=== PATIENT | male | born 1960 | race Two or more races ===

== ENCOUNTER 2016-09-13 08:11 | Inpatient (IN) | payer OTHER ==
[2016-09-13] VITALS (10 sets, daily range): BP systolic 101–129; BP diastolic 52–63
[~2016-09-13] VITALS: Ht 182.9 cm; Wt 76.7 kg
[2016-09-13 08:46] LABS: BASO % 0 % (0-3); EOS % 0 % (0-3); HEMATOCRIT 31.9 % (39.0-53.0); HEMOGLOBIN 10.7 g/dL (13.0-17.5); LYMPH # 0.3 x10^3/uL (1.0-4.8); LYMPH % 3 % (24-48); MEAN CORPUSCULAR HEMOGLOBIN 30 pg (25-35); MEAN CORPUSCULAR HGB CONC 34 g/dL (31-37); MEAN CORPUSCULAR VOLUME 88 fL (79-100); MONO % 2 % (0-9); NEUT % 95 % (31-73); PLATELET COUNT 150 x10^3/uL (140-400); RED BLOOD COUNT 3.63 x10^6/uL (4.30-5.70)
--- NOTE | 2016-09-13 08:52 | RAD ---
Indication fever nausea vomiting. Protocol study. A single view of the chest was obtained. No prior imaging of the chest is available. Heart size is at the upper limits of normal. There is no congestive heart failure. There is no focal infiltrate. Significant pleural fluid is not seen and there is no pneumothorax. Right-sided dialysis catheter is noted. IMPRESSION: No acute or focal process in the chest
[2016-09-13] MEDS ORDERED: PIP/TAZO PER PHARMACY MC PRN (09:00)
[2016-09-13] MEDS ORDERED: ACETAMINOPHEN 325 MG TABLET. PO ONE (09:00)
[2016-09-13] MEDS ORDERED: IV NORMAL SALINE 500ML BAG 500 ML IV ONE ×2 (09:00→10:00)
[2016-09-13 09:02] LABS: CALCIUM 8.1 mg/dL (8.5-10.1); CREATININE 8.6 mg/dL (0.7-1.3); GFR 6.4; POTASSIUM 5.1 mmol/L (3.5-5.1)
[2016-09-13] MEDS ORDERED: ONDANSETRON PF 4 MG/2 ML VIAL. ONE (09:03)
[2016-09-13 09:09] LABS: ALBUMIN 3.5 g/dL (3.4-5.0); DIRECT BILIRUBIN 0.2 mg/dL (0.0-0.2); TOTAL BILIRUBIN 0.6 mg/dL (0.2-1.0); TOTAL PROTEIN 6.7 g/dL (6.4-8.2)
[2016-09-13] MEDS ORDERED: ONDANSETRON PF 4 MG/2 ML VIAL. IV ONE (09:15)
--- NOTE | 2016-09-13 09:20 | PHYS DOC ---
Past Medical History Past Medical History: Hypertension, Renal Failure Past Surgical History: Other Additional Past Surgical Histo: Dialysis cath right chest, lt arm fistula Alcohol Use: None Drug Use: None Adult General Chief Complaint Chief Complaint: FEVER HPI HPI 56-year-old male presenting to the emergency department today after getting dialysis approximately longterm through when the dialysis nurses noted the patient was trembling. They called EMS to have the patient evaluated. The patient reports feeling nauseated and having a few episodes of vomiting over the past couple days. He denies abdominal pain or diarrhea. He also reports a green drainage from his port. He denies any new rashes. Onset 24 hours. Location generalized. Duration constant. No alleviating or exacerbating factors. Review of systems was negative for cough shortness of breath abdominal pain diarrhea. All other review of systems is negative unless otherwise noted in history of present illness. ED course: 56-year-old end-stage renal disease patient presenting to the emergency department with a fever. Patient was febrile and tachycardic and tachypneic in our emergency department concern for possible bacteremia. Patient reports green drainage from his right port which could be the source of infection. On inspection and evaluation of the port , the port has no drainage currently and there is no erythema around the site. Clinically port/central venous line does not appear infected. Other pertinent physical exam findings lungs are clear to auscultation. Abdomen is soft and nontender. Otherwise unremarkable exam. Noted fistula in the left upper arm.. IV established. IV fluids administered along with acetaminophen and broad-spectrum antibiotics after blood cultures obtained. Blood work sent. Lactic acid elevated. Reevaluation of the patient's hemodynamic volume status after 500 mL bolus performed. I reinitiated another 500 mL bolus. Judicious fluid administration used due to esrd. The patient was then admitted to our hospital for further evaluation workup and care. Review of Systems Review of Systems SEE ABOVE. Current Medications Current Medications Current Medications Medications (Trade) Dose Ordered Sig/Sajan Start Time Stop Time Status Last Admin Dose Admin Acetaminophen (Tylenol) 650 mg 1X ONCE 09/13/16 09:00 09/13/16 09:04 DC 09/13/16 09:06 650 MG Ondansetron HCl (Zofran) 4 mg STK-MED ONCE 09/13/16 09:03 09/13/16 09:04 DC Piperacillin Sod/ Tazobactam Sod (Zosyn Per Pharmacy) 1 each PRN DAILY PRN 09/13/16 09:00 Piperacillin Sod/ Tazobactam Sod 2.25 gm/Sodium Chloride 50 ml @ 100 mls/hr 1X ONCE 09/13/16 09:45 09/13/16 10:14 09/13/16 09:24 100 MLS/HR Sodium Chloride 500 ml @ 500 mls/hr 1X ONCE 09/13/16 09:00 09/13/16 09:59 09/13/16 09:06 500 MLS/HR Vancomycin HCl (Vanco Per Pharmacy) 1 each PRN DAILY PRN 09/13/16 09:00 Vancomycin HCl 2 gm/Sodium Chloride 500 ml @ 250 mls/hr 1X ONCE 09/13/16 10:15 09/13/16 12:14 Allergies Allergies Allergies Coded Allergies Type Severity Reaction Last Updated Verified No Known Drug Allergies 09/13/16 No Physical Exam Physical Exam Constitutional: Well developed, well nourished, no acute distress, non-toxic appearance. [] HENT: Normocephalic, atraumatic, bilateral external ears normal, oropharynx moist, no oral exudates, nose normal. [] Eyes: PERRLA, EOMI, conjunctiva normal, no discharge. [] Neck: Normal range of motion, no tenderness, supple, no stridor. [] Cardiovascular:Heart rate regular rhythm, no murmur [] Lungs & Thorax: Bilateral breath sounds clear to auscultation [] Abdomen: Bowel sounds normal, soft, no tenderness, no masses, no pulsatile masses. [] Skin: Warm, dry, no erythema, no rash. [] see above Back: No tenderness, no CVA tenderness. [] Extremities: No tenderness, no cyanosis, no clubbing, ROM intact, no edema. [] see above Neurologic: Alert and oriented X 3, normal motor function, normal sensory function, no focal deficits noted. [] Psychologic: Affect normal, judgement normal, mood normal. [] Current Patient Data Vital Signs Vital Signs Date Time Temp Pulse Resp B/P (MAP) Pulse Ox O2 Delivery O2 Flow Rate FiO2 09/13/16 08:43 106 20 134/67 (89) 100 09/13/16 08:19 103.3 Room Air 103.3 Lab Values Laboratory Tests Test 09/13/16 08:35 White Blood Count 11.0 x10^3/uL (4.0-11.0) Red Blood Count 3.63 x10^6/uL (4.30-5.70) L Hemoglobin 10.7 g/dL (13.0-17.5) L Hematocrit 31.9 % (39.0-53.0) L Mean Corpuscular Volume 88 fL (79-100) Mean Corpuscular Hemoglobin 30 pg (25-35) Mean Corpuscular Hemoglobin Concent 34 g/dL (31-37) Red Cell Distribution Width 17.0 % (11.5-14.5) H Platelet Count 150 x10^3/uL (140-400) Neutrophils (%) (Auto) 95 % (31-73) H Lymphocytes (%) (Auto) 3 % (24-48) L Monocytes (%) (Auto) 2 % (0-9) Eosinophils (%) (Auto) 0 % (0-3) Basophils (%) (Auto) 0 % (0-3) Neutrophils # (Auto) 10.4 x10^3uL (1.8-7.7) H Lymphocytes # (Auto) 0.3 x10^3/uL (1.0-4.8) L Monocytes # (Auto) 0.2 x10^3/uL (0.0-1.1) Eosinophils # (Auto) 0.0 x10^3/uL (0.0-0.7) Basophils # (Auto) 0.0 x10^3/uL (0.0-0.2) Platelet Estimate Pending Sodium Level 137 mmol/L (136-145) Potassium Level 5.1 mmol/L (3.5-5.1) Chloride Level 102 mmol/L (98-107) Carbon Dioxide Level 19 mmol/L (21-32) L Anion Gap 16 (6-14) H Blood Urea Nitrogen 64 mg/dL (8-26) H Creatinine 8.6 mg/dL (0.7-1.3) H Estimated GFR (Cockcroft-Gault) 6.4 Glucose Level 150 mg/dL (70-99) H Lactic Acid Level 4.3 mmol/L (0.4-2.0) *H Calcium Level 8.1 mg/dL (8.5-10.1) L Total Bilirubin 0.6 mg/dL (0.2-1.0) Direct Bilirubin 0.2 mg/dL (0.0-0.2) Aspartate Amino Transferase (AST) 16 U/L (15-37) Alanine Aminotransferase (ALT) 14 U/L (16-63) L Alkaline Phosphatase 48 U/L (46-116) Troponin I Quantitative 0.043 ng/mL (0.000-0.055) HQ-Zsi-D-Type Natriuretic Peptide > 49366 pg/mL (0-124) H Total Protein 6.7 g/dL (6.4-8.2) Albumin 3.5 g/dL (3.4-5.0) Lipase 79 U/L (73-393) Laboratory Tests 09/13/16 08:35 Laboratory Tests 09/13/16 08:35 EKG EKG [] Radiology/Procedures Radiology/Procedures [] Course & Med Decision Making Course & Med Decision Making Pertinent Labs and Imaging studies reviewed. (See chart for details) [] Dragon Disclaimer Dragon Disclaimer This electronic medical record was generated, in whole or in part, using a voice recognition dictation system. Departure Departure Impression: Primary Impression: Fever Additional Impressions: Tachycardia End stage renal disease Disposition: ADMITTED INPATIENT Admitting Physician: Tian Tejada Condition: STABLE Critical Care Time Critical care time was [35] minutes exclusive of procedures. Time was spent evaluating patient, ordering the administration of IV fluids and antibiotics, reevaluating the patient, discussing with the admitting provider and documenting. Problem Qualifiers XAVI LI MD Sep 13, 2016 09:20
[2016-09-13] MEDS ORDERED: PIPERACILLIN/TAZOBACTAM 2.25 GM in IV NORMAL SALINE 50ML 50 ML IV ONE (09:45)
[2016-09-13] MEDS ORDERED: ONDANSETRON PF 4 MG/2 ML VIAL. IV PRN ×2 (10:00→14:00)
[2016-09-13] MEDS ORDERED: MORPHINE SULFATE 2 MG/ML DISP.SYRIN. IV PRN ×2 (10:00→14:00)
--- NOTE | 2016-09-13 10:07 | EKG ---
[facility] [address] [place] [address] Test Date: 2016-09-13 Test Time: 09:01:03 Pat Name: BRIAN LUCERO Department: Room: Gender: M Buckle Inspector: : 1960 Requested By: XAVI LI Order Number: [id number] Reading MD: Measurements Intervals [place] Rate: 109 P: 39 TX: 116 QRS: 28 QRSD: 88 T: 22 QT: 296 QTc: 400 Interpretive Statements SINUS TACHYCARDIA LEFT ATRIAL ABNORMALITY QRS(T) CONTOUR ABNORMALITY CANNOT RULE OUT ANTEROSEPTAL MYOCARDIAL DAMAGE RI6.01 Unconfirmed report No previous ECG available for comparison
[2016-09-13] MEDS ORDERED: VANCOMYCIN 2 GM in IV NORMAL SALINE 500ML BAG 500 ML IV ONE (10:15)
[2016-09-13 10:18] LABS: PLT ESTIMATE ADEQUATE (ADEQUATE)
--- NOTE | 2016-09-13 10:21 | ACF ---
Admission Forms Criteria I am unable to edit this form. This patient was placed as observation status. This is the only avenue in our electronic medical record for me to document this. All of the above information is not my professional medical opinion. Admission Criteria Met?: Pending IVETTE KO Sep 13, 2016 10:21 XAVI LI MD Sep 20, 2016 03:48
[2016-09-13] MEDS ORDERED: HYDR-2869 PO (11:21)
[2016-09-13] MEDS ORDERED: AMLO10TA2 PO (11:21)
[2016-09-13] MEDS: VANCOMYCIN PER PHARMACY MC PRN (12:44)
[2016-09-13] MEDS ORDERED: IV NORMAL SALINE 1000ML BAG 1,000 ML IV ONE (12:45)
--- NOTE | 2016-09-13 13:58 | PDOC1 ---
History and Physical Date of Admission Date of Admission 09/13/16 Identification/Chief Complaint Chief Complaint fever, chills Problems: Source Source: Chart review, Patient History of Present Illness History of Present Illness HPI HPI 56-year-old male presenting to the emergency department today after getting dialysis approximately nursing home through when the dialysis nurses noted the patient had chills. Pt said he started to have chills, fever, since last night, T 104. He also N/V yesterday with 1 time diarrhea. He noticed his right upper chest HD cath had some pus 2 days ago, told HD staff , nothing was done. otherwise he feels ok, no cough, sob, chest pain, abd pain . He still has 4 times urination daily with HD TTS, about 400cc daily. in ER, T 103, [place] 4. has left arm AVF done 4 WEEKS ago, HD current through AVF, the HD cath was supposed to move soon. i noticed his HD cath was not fixed to chest wall at all , easily to move in or out. with mild yellow discharge on the dressing. Past Medical History Past Medical History Hypertension, Renal Failure Past Surgical History Past Surgical History HD cath, AVF Family History Family History: Hypertension Social History Smoke: No ALCOHOL: none Drugs: None Current Problem List Problem List Problems Medical Problems: (1) End stage renal disease Status: Acute (2) Fever Status: Acute (3) Tachycardia Status: Acute Current Medications Current Medications Current Medications Medications (Trade) Dose Ordered Sig/Sajan Start Time Stop Time Status Last Admin Dose Admin Acetaminophen (Tylenol) 650 mg 1X ONCE 09/13/16 09:00 09/13/16 09:04 DC 09/13/16 09:06 650 MG Morphine Sulfate 2 mg PRN Q2HR PRN 09/13/16 10:00 09/14/16 09:59 Ondansetron HCl (Zofran) 4 mg PRN Q8HRS PRN 09/13/16 10:00 09/14/16 09:59 Piperacillin Sod/ Tazobactam Sod (Zosyn Per Pharmacy) 1 each PRN DAILY PRN 09/13/16 09:00 Piperacillin Sod/ Tazobactam Sod 2.25 gm/Sodium Chloride 50 ml @ 100 mls/hr Q8HRS 09/13/16 20:00 Sodium Chloride 1,000 ml @ 1,000 mls/hr 1X ONCE 09/13/16 12:45 09/13/16 13:44 DC 09/13/16 12:45 1,000 MLS/HR Vancomycin HCl (Vanco Per Pharmacy) 1 each PRN DAILY PRN 09/13/16 09:00 09/13/16 12:44 1 EACH Vancomycin HCl 500 mg/Sodium Chloride 100 ml @ 100 mls/hr QTUTHSA 09/15/16 16:00 Vancomycin HCl 2 gm/Sodium Chloride 500 ml @ 250 mls/hr 1X ONCE 09/13/16 10:15 09/13/16 12:14 DC 09/13/16 09:58 250 MLS/HR Allergies Allergies Allergies Coded Allergies Type Severity Reaction Last Updated Verified No Known Drug Allergies 09/13/16 No ROS Review of System CONSTITUTIONAL: No fever or chills EYES: No recent changes SKIN: No rash or itching CARDIOVASCULAR: No chest pain, syncope, palpitations, or edema RESPIRATORY: No SOB or cough GASTROINTESTINAL: No nausea, vomiting or abdominal pain NEUROLOGICAL: No headaches or weakness ENDOCRINE: No cold or heat intolerance GENITOURINARY: No urgency or frequency of urination MUSCULOSKELETAL: No back pain or joint pain LYMPHATICS: No enlarged lymph nodes PSYCHIATRIC: No anxiety or depression Physical Exam Physical Exam HD cath was not fixed to chest wall at all, easily to move in or out. with mild yellow discharge on the dressing. GEN.: No apparent distress. Alert and oriented. HEENT: Head is normocephalic, atraumatic NECK: Supple. LUNGS: Clear to auscultation. HEART: RRR, S1, S2 present. Peripheral pulses intact ABDOMEN: Soft, nontender. Positive bowel sounds. EXTREMITIES: Without any cyanosis. NEUROLOGIC: Normal speech, normal tone PSYCHIATRIC: Normal affect, normal mood. SKIN: No ulcerations Vitals Vitals Vital Signs Date Time Temp Pulse Resp B/P (MAP) Pulse Ox O2 Delivery O2 Flow Rate FiO2 09/13/16 13:00 87 14 101/60 (74) 96 Room Air 09/13/16 12:00 100.4 100.4 Labs Labs Laboratory Tests Test 09/13/16 08:35 09/13/16 11:40 White Blood Count 11.0 x10^3/uL (4.0-11.0) Red Blood Count 3.63 x10^6/uL (4.30-5.70) Hemoglobin 10.7 g/dL (13.0-17.5) Hematocrit 31.9 % (39.0-53.0) Mean Corpuscular Volume 88 fL (79-100) Mean Corpuscular Hemoglobin 30 pg (25-35) Mean Corpuscular Hemoglobin Concent 34 g/dL (31-37) Red Cell Distribution Width 17.0 % (11.5-14.5) Platelet Count 150 x10^3/uL (140-400) Neutrophils (%) (Auto) 95 % (31-73) Lymphocytes (%) (Auto) 3 % (24-48) Monocytes (%) (Auto) 2 % (0-9) Eosinophils (%) (Auto) 0 % (0-3) Basophils (%) (Auto) 0 % (0-3) Neutrophils # (Auto) 10.4 x10^3uL (1.8-7.7) Lymphocytes # (Auto) 0.3 x10^3/uL (1.0-4.8) Monocytes # (Auto) 0.2 x10^3/uL (0.0-1.1) Eosinophils # (Auto) 0.0 x10^3/uL (0.0-0.7) Basophils # (Auto) 0.0 x10^3/uL (0.0-0.2) Segmented Neutrophils % 75 % (35-66) Band Neutrophils % 21 % (0-9) Lymphocytes % 4 % (24-48) Platelet Estimate Adequate (ADEQUATE) Sodium Level 137 mmol/L (136-145) Potassium Level 5.1 mmol/L (3.5-5.1) Chloride Level 102 mmol/L (98-107) Carbon Dioxide Level 19 mmol/L (21-32) Anion Gap 16 (6-14) Blood Urea Nitrogen 64 mg/dL (8-26) Creatinine 8.6 mg/dL (0.7-1.3) Estimated GFR (Cockcroft-Gault) 6.4 Glucose Level 150 mg/dL (70-99) Lactic Acid Level 4.3 mmol/L (0.4-2.0) 0.7 mmol/L (0.4-2.0) Calcium Level 8.1 mg/dL (8.5-10.1) Total Bilirubin 0.6 mg/dL (0.2-1.0) Direct Bilirubin 0.2 mg/dL (0.0-0.2) Aspartate Amino Transf (AST/SGOT) 16 U/L (15-37) Alanine Aminotransferase (ALT/SGPT) 14 U/L (16-63) Alkaline Phosphatase 48 U/L (46-116) Troponin I Quantitative 0.043 ng/mL (0.000-0.055) UX-Quc-B-Type Natriuretic Peptide > 98934 pg/mL (0-124) Total Protein 6.7 g/dL (6.4-8.2) Albumin 3.5 g/dL (3.4-5.0) Lipase 79 U/L (73-393) Laboratory Tests Test 09/13/16 08:35 09/13/16 11:40 White Blood Count 11.0 x10^3/uL (4.0-11.0) Red Blood Count 3.63 x10^6/uL (4.30-5.70) Hemoglobin 10.7 g/dL (13.0-17.5) Hematocrit 31.9 % (39.0-53.0) Mean Corpuscular Volume 88 fL (79-100) Mean Corpuscular Hemoglobin 30 pg (25-35) Mean Corpuscular Hemoglobin Concent 34 g/dL (31-37) Red Cell Distribution Width 17.0 % (11.5-14.5) Platelet Count 150 x10^3/uL (140-400) Neutrophils (%) (Auto) 95 % (31-73) Lymphocytes (%) (Auto) 3 % (24-48) Monocytes (%) (Auto) 2 % (0-9) Eosinophils (%) (Auto) 0 % (0-3) Basophils (%) (Auto) 0 % (0-3) Neutrophils # (Auto) 10.4 x10^3uL (1.8-7.7) Lymphocytes # (Auto) 0.3 x10^3/uL (1.0-4.8) Monocytes # (Auto) 0.2 x10^3/uL (0.0-1.1) Eosinophils # (Auto) 0.0 x10^3/uL (0.0-0.7) Basophils # (Auto) 0.0 x10^3/uL (0.0-0.2) Segmented Neutrophils % 75 % (35-66) Band Neutrophils % 21 % (0-9) Lymphocytes % 4 % (24-48) Platelet Estimate Adequate (ADEQUATE) Sodium Level 137 mmol/L (136-145) Potassium Level 5.1 mmol/L (3.5-5.1) Chloride Level 102 mmol/L (98-107) Carbon Dioxide Level 19 mmol/L (21-32) Anion Gap 16 (6-14) Blood Urea Nitrogen 64 mg/dL (8-26) Creatinine 8.6 mg/dL (0.7-1.3) Estimated GFR (Cockcroft-Gault) 6.4 Glucose Level 150 mg/dL (70-99) Lactic Acid Level 4.3 mmol/L (0.4-2.0) 0.7 mmol/L (0.4-2.0) Calcium Level 8.1 mg/dL (8.5-10.1) Total Bilirubin 0.6 mg/dL (0.2-1.0) Direct Bilirubin 0.2 mg/dL (0.0-0.2) Aspartate Amino Transf (AST/SGOT) 16 U/L (15-37) Alanine Aminotransferase (ALT/SGPT) 14 U/L (16-63) Alkaline Phosphatase 48 U/L (46-116) Troponin I Quantitative 0.043 ng/mL (0.000-0.055) KU-Rmz-K-Type Natriuretic Peptide > 32611 pg/mL (0-124) Total Protein 6.7 g/dL (6.4-8.2) Albumin 3.5 g/dL (3.4-5.0) Lipase 79 U/L (73-393) VTE Prophylaxis Ordered VTE Prophylaxis Devices: Yes VTE Pharmacological Prophylaxi: Yes Assessment/Plan Assessment/Plan 1. sepsis, with likely bacteremia or infection from the HD cath 2. ESRD on HD TTS 3. htn 4. bandemia 5. metabolic acidosis 6. lactate acidosis 7. anemia with 2 plan; renal , ID consult if renal ok, should remove the chesT HD cath cont flores meléndez for now, fu bcx need HD, not sure today or not tho hold HTN meds get 1.5L iv BOLUS labs tmr ok to transfer out of ICU dvt ppx DILLON FIELDS MD Sep 13, 2016 13:58
[2016-09-13] MEDS ORDERED: hydrALAZINE 20 MG/ML VIAL. IVP PRN (14:00)
[2016-09-13] MEDS ORDERED: DOCUSATE SODIUM 100 MG CAPSULE. PO PRN (14:00)
--- NOTE | 2016-09-13 14:30 | PDOC2 ---
Consult: RENAL CONSULT/ NAN Date of consult: 09/13/16 Identification/Chief Complaint ESRD Source Source: Chart review, Patient History of Present Illness History of Present Illness HPI HPI 56-year-old male presenting to the emergency department today after getting dialysis approximately senior living through when the dialysis nurses noted the patient had chills. Pt said he started to have chills, fever, since last night, T 104. He also N/V yesterday with 1 time diarrhea. He noticed his right upper chest HD cath had some pus 2 days ago, told HD staff , nothing was done. otherwise he feels ok, no cough, sob, chest pain, abd pain . He still has 4 times urination daily with HD TTS, about 400cc daily. in ER, T 103, [place] 4. Had left arm AVF done 4 WEEKS ago, HD current through AVF, the HD catheter is ready to come off.It is a Rt IJ CVC. No other related c/o. Past Medical History Past Medical History Hypertension, Renal Failure Past Surgical History Past Surgical History HD cath, AVF Family History Family History: Hypertension Social History Smoke: No ALCOHOL: none Drugs: None Current Medications Current Medications Current Medications Medications (Trade) Dose Ordered Sig/Sajan Start Time Stop Time Status Last Admin Dose Admin Acetaminophen (Tylenol) 650 mg 1X ONCE 09/13/16 09:00 09/13/16 09:04 DC 09/13/16 09:06 650 MG Morphine Sulfate 2 mg PRN Q2HR PRN 09/13/16 10:00 09/14/16 09:59 Ondansetron HCl (Zofran) 4 mg PRN Q8HRS PRN 09/13/16 10:00 09/14/16 09:59 Piperacillin Sod/ Tazobactam Sod (Zosyn Per Pharmacy) 1 each PRN DAILY PRN 09/13/16 09:00 Piperacillin Sod/ Tazobactam Sod 2.25 gm/Sodium Chloride 50 ml @ 100 mls/hr Q8HRS 09/13/16 20:00 Sodium Chloride 1,000 ml @ 1,000 mls/hr 1X ONCE 09/13/16 12:45 09/13/16 13:44 DC 09/13/16 12:45 1,000 MLS/HR Vancomycin HCl (Vanco Per Pharmacy) 1 each PRN DAILY PRN 09/13/16 09:00 09/13/16 12:44 1 EACH Vancomycin HCl 500 mg/Sodium Chloride 100 ml @ 100 mls/hr QTUTHSA 09/15/16 16:00 Vancomycin HCl 2 gm/Sodium Chloride 500 ml @ 250 mls/hr 1X ONCE 09/13/16 10:15 09/13/16 12:14 DC 09/13/16 09:58 250 MLS/HR Allergies Allergies Allergies Coded Allergies Type Severity Reaction Last Updated Verified No Known Drug Allergies 09/13/16 No ROS Review of System CONSTITUTIONAL: ++ fever or chills EYES: No recent changes SKIN: No rash or itching CARDIOVASCULAR: No chest pain, syncope, palpitations, or edema RESPIRATORY: No SOB or cough GASTROINTESTINAL: No nausea, vomiting or abdominal pain NEUROLOGICAL: No headaches or weakness ENDOCRINE: No cold or heat intolerance GENITOURINARY: No urgency or frequency of urination MUSCULOSKELETAL: No back pain or joint pain PSYCHIATRIC: No anxiety or depression Physical Exam Physical Exam HD cath was not fixed to chest wall at all. Mild yellow discharge on the dressing. GEN.: No apparent distress. Alert and oriented. HEENT: Head is normocephalic, atraumatic NECK: Supple. LUNGS: Clear to auscultation. HEART: RRR, S1, S2 present. Peripheral pulses intact ABDOMEN: Soft, nontender. Positive bowel sounds. EXTREMITIES: Without any cyanosis. NEUROLOGIC: Normal speech, normal tone PSYCHIATRIC: Normal affect, normal mood. SKIN: No ulcerations Vitals Vitals Vital Signs Date Time Temp Pulse Resp B/P (MAP) Pulse Ox O2 Delivery O2 Flow Rate FiO2 09/13/16 13:00 87 14 101/60 (74) 96 Room Air 09/13/16 12:00 100.4 100.4 Labs Labs Laboratory Tests Test 09/13/16 08:35 09/13/16 11:40 White Blood Count 11.0 x10^3/uL (4.0-11.0) Red Blood Count 3.63 x10^6/uL (4.30-5.70) Hemoglobin 10.7 g/dL (13.0-17.5) Hematocrit 31.9 % (39.0-53.0) Mean Corpuscular Volume 88 fL (79-100) Mean Corpuscular Hemoglobin 30 pg (25-35) Mean Corpuscular Hemoglobin Concent 34 g/dL (31-37) Red Cell Distribution Width 17.0 % (11.5-14.5) Platelet Count 150 x10^3/uL (140-400) Neutrophils (%) (Auto) 95 % (31-73) Lymphocytes (%) (Auto) 3 % (24-48) Monocytes (%) (Auto) 2 % (0-9) Eosinophils (%) (Auto) 0 % (0-3) Basophils (%) (Auto) 0 % (0-3) Neutrophils # (Auto) 10.4 x10^3uL (1.8-7.7) Lymphocytes # (Auto) 0.3 x10^3/uL (1.0-4.8) Monocytes # (Auto) 0.2 x10^3/uL (0.0-1.1) Eosinophils # (Auto) 0.0 x10^3/uL (0.0-0.7) Basophils # (Auto) 0.0 x10^3/uL (0.0-0.2) Segmented Neutrophils % 75 % (35-66) Band Neutrophils % 21 % (0-9) Lymphocytes % 4 % (24-48) Platelet Estimate Adequate (ADEQUATE) Sodium Level 137 mmol/L (136-145) Potassium Level 5.1 mmol/L (3.5-5.1) Chloride Level 102 mmol/L (98-107) Carbon Dioxide Level 19 mmol/L (21-32) Anion Gap 16 (6-14) Blood Urea Nitrogen 64 mg/dL (8-26) Creatinine 8.6 mg/dL (0.7-1.3) Estimated GFR (Cockcroft-Gault) 6.4 Glucose Level 150 mg/dL (70-99) Lactic Acid Level 4.3 mmol/L (0.4-2.0) 0.7 mmol/L (0.4-2.0) Calcium Level 8.1 mg/dL (8.5-10.1) Total Bilirubin 0.6 mg/dL (0.2-1.0) Direct Bilirubin 0.2 mg/dL (0.0-0.2) Aspartate Amino Transf (AST/SGOT) 16 U/L (15-37) Alanine Aminotransferase (ALT/SGPT) 14 U/L (16-63) Alkaline Phosphatase 48 U/L (46-116) Troponin I Quantitative 0.043 ng/mL (0.000-0.055) PY-Ozj-T-Type Natriuretic Peptide > 91597 pg/mL (0-124) Total Protein 6.7 g/dL (6.4-8.2) Albumin 3.5 g/dL (3.4-5.0) Lipase 79 U/L (73-393) Laboratory Tests Test 09/13/16 08:35 09/13/16 11:40 White Blood Count 11.0 x10^3/uL (4.0-11.0) Red Blood Count 3.63 x10^6/uL (4.30-5.70) Hemoglobin 10.7 g/dL (13.0-17.5) Hematocrit 31.9 % (39.0-53.0) Mean Corpuscular Volume 88 fL (79-100) Mean Corpuscular Hemoglobin 30 pg (25-35) Mean Corpuscular Hemoglobin Concent 34 g/dL (31-37) Red Cell Distribution Width 17.0 % (11.5-14.5) Platelet Count 150 x10^3/uL (140-400) Neutrophils (%) (Auto) 95 % (31-73) Lymphocytes (%) (Auto) 3 % (24-48) Monocytes (%) (Auto) 2 % (0-9) Eosinophils (%) (Auto) 0 % (0-3) Basophils (%) (Auto) 0 % (0-3) Neutrophils # (Auto) 10.4 x10^3uL (1.8-7.7) Lymphocytes # (Auto) 0.3 x10^3/uL (1.0-4.8) Monocytes # (Auto) 0.2 x10^3/uL (0.0-1.1) Eosinophils # (Auto) 0.0 x10^3/uL (0.0-0.7) Basophils # (Auto) 0.0 x10^3/uL (0.0-0.2) Segmented Neutrophils % 75 % (35-66) Band Neutrophils % 21 % (0-9) Lymphocytes % 4 % (24-48) Platelet Estimate Adequate (ADEQUATE) Sodium Level 137 mmol/L (136-145) Potassium Level 5.1 mmol/L (3.5-5.1) Chloride Level 102 mmol/L (98-107) Carbon Dioxide Level 19 mmol/L (21-32) Anion Gap 16 (6-14) Blood Urea Nitrogen 64 mg/dL (8-26) Creatinine 8.6 mg/dL (0.7-1.3) Estimated GFR (Cockcroft-Gault) 6.4 Glucose Level 150 mg/dL (70-99) Lactic Acid Level 4.3 mmol/L (0.4-2.0) 0.7 mmol/L (0.4-2.0) Calcium Level 8.1 mg/dL (8.5-10.1) Total Bilirubin 0.6 mg/dL (0.2-1.0) Direct Bilirubin 0.2 mg/dL (0.0-0.2) Aspartate Amino Transf (AST/SGOT) 16 U/L (15-37) Alanine Aminotransferase (ALT/SGPT) 14 U/L (16-63) Alkaline Phosphatase 48 U/L (46-116) Troponin I Quantitative 0.043 ng/mL (0.000-0.055) YS-Agg-O-Type Natriuretic Peptide > 88565 pg/mL (0-124) Total Protein 6.7 g/dL (6.4-8.2) Albumin 3.5 g/dL (3.4-5.0) Lipase 79 U/L (73-393) Assessment/Plan Assessment/Plan 1. Sepsis, with likely bacteremia or infection from the HD cath. 2. ESRD on HD TTS 3. HTN W CKD. 4. Metabolic acidosis 5. Anemia due to CKD. HD in am. Remove CVC. Abx Labs Supportive care. Ok to transfer out of ICU when bed available. Thank you. SOPHIA MONTANA MD Sep 13, 2016 14:30
[2016-09-13] MEDS: HEPARIN PF for SUB-Q USE 5,000 UNIT/0.5 ML VIAL. SQ SCH ×2 (15:34→21:17)
[2016-09-13] MEDS: ACETAMINOPHEN 325 MG TABLET. PO PRN (18:27)
[2016-09-13 18:45] LABS: BILIRUBIN,URINE NEGATIVE (NEG); GLUCOSE,URINE NEGATIVE (NEG); NITRITE,URINE NEGATIVE (NEG); PH,URINE 5.5; PROTEIN,URINE >=300 mg/dL (NEG-TRACE); UROBILINOGEN,URINE 0.2 mg/dL (0.2 mg/dL)
[2016-09-13 18:53] LABS: BACTERIA,URINE FEW /HPF (0-FEW); RBC,URINE TNTC /HPF (0-2)
[2016-09-13] MEDS: PIPERACILLIN/TAZOBACTAM 2.25 GM in IV NORMAL SALINE 50ML 50 ML IV SCH (21:12)
[2016-09-14] MEDS: traMADol 50 MG TABLET PO PRN (04:05)
[2016-09-14 04:30] VITALS: BP 134/69
[2016-09-14 05:45] LABS: BASO % 0 % (0-3); EOS % 0 % (0-3); HEMATOCRIT 25.8 % (39.0-53.0); HEMOGLOBIN 8.5 g/dL (13.0-17.5); LYMPH # 0.5 x10^3/uL (1.0-4.8); LYMPH % 6 % (24-48); MEAN CORPUSCULAR HEMOGLOBIN 30 pg (25-35); MEAN CORPUSCULAR HGB CONC 33 g/dL (31-37); MEAN CORPUSCULAR VOLUME 89 fL (79-100); MONO % 7 % (0-9); NEUT % 87 % (31-73); PLATELET COUNT 108 x10^3/uL (140-400); RED BLOOD COUNT 2.88 x10^6/uL (4.30-5.70); RED CELL DISTRIBUTION WIDTH 17.3 % (11.5-14.5); WHITE BLOOD COUNT 7.9 x10^3/uL (4.0-11.0)
[2016-09-14 05:46] LABS: CALCIUM 7.2 mg/dL (8.5-10.1); CREATININE 9.8 mg/dL (0.7-1.3); GFR 5.5
[2016-09-14 05:56] LABS: POTASSIUM 5.3 mmol/L (3.5-5.1)
[2016-09-14] MEDS: PIPERACILLIN/TAZOBACTAM 2.25 GM in IV NORMAL SALINE 50ML 50 ML IV SCH ×3 (06:33→22:06)
[2016-09-14] MEDS: HEPARIN PF for SUB-Q USE 5,000 UNIT/0.5 ML VIAL. SQ SCH ×3 (06:40→22:10)
[2016-09-14 07:00] VITALS: BP 114/59
[2016-09-14 08:57] LABS: INR 1.1 (0.8-1.1); PROTHROMBIN TIME PATIENT 13.7 SEC (11.7-14.0)
[2016-09-14] MEDS: amLODIPine BESYLATE 10 MG TABLET PO SCH (09:00)
[2016-09-14] MEDS ORDERED: LIDOCAINE 1%/EPI 1:100,000 20 ML VIAL. ONE (09:54)
--- NOTE | 2016-09-14 09:57 | PDOC2 ---
IM Consult Referring physician Dr Tejada, for fever in HD pt Date of Admission DATE: 09/14/16 TIME: 09:41 Chief Complaint Chief Complaint This year old male has been admitted with a chief complaint of . fever, chills , evidently at HD center , some pus from HD cath site Had d/w ER physician and vanc and zosyn started Problems: Past Medical History Cardiovascular: HTN Renal/: Chronic renal insuff Past Surgical History Past Surgical History: Other (A-V fistula and has HD cath) Past Family History Family History: Hypertension Past Social History PSH Denies smoking, etoh and drugs Review of Symptoms Review of Symptoms General ROS: positive for - Psychological ROS: negative Ophthalmic ROS: negative ENT ROS: negative Allergy and Immunology ROS: negative Hematology and Lymphatic: negative Endocrine ROS: negative Respiratory ROS: no cold, cough, dyspnea. Cardiovascular ROS: no chest pain or dyspnea on exertion Gastrointestinal ROS: no abdominal pain, change in bowel habits, or black or bloody stools Genito-Urinary ROS: no dysuria, trouble voiding, or hematuria Musculoskeletal ROS: no pain Neurological ROS: negative Dermatological ROS: no rash Medications Current Medications Acetaminophen (Tylenol) 650 mg PRN Q6HRS PRN PO FEVER Last administered on 18:27; Start 09/13/16 at 14:00 Amlodipine Besylate (Norvasc) 10 mg DAILY PO ; Start 09/14/16 at 09:00 Docusate Sodium (Colace) 100 mg PRN DAILY PRN PO CONSTIPATION; Start 09/13/16 at 14:00 Heparin Sodium (Porcine) (Heparin Sq) 5,000 unit Q8HRS SQ Last administered on 09/14/16 06:40; Start 09/13/16 at 14:00 Hydralazine HCl (Apresoline) 10 mg PRN Q4HRS PRN IVP ELEVATED BP, SEE COMMENTS ; Start 09/13/16 at 14:00 Hydralazine HCl (Apresoline) 50 mg TID PO ; Start 09/14/16 at 09:00 Morphine Sulfate 2 mg PRN Q2HR PRN IV PAIN; Start 09/13/16 at 10:00; Stop at 13:55; Status DC Morphine Sulfate 2 mg PRN Q2HR PRN IV PAIN; Start 09/13/16 at 14:00 Ondansetron HCl (Zofran) 4 mg PRN Q6HRS PRN IV NAUSEA/VOMITING; Start 09/13/16 at 14:00 Ondansetron HCl (Zofran) 4 mg PRN Q8HRS PRN IV NAUSEA/VOMITING; Start 09/13/16 at 10:00; Stop 09/13/16 at 13:55; Status DC Piperacillin Sod/ Tazobactam Sod 2.25 gm/Sodium Chloride 50 ml @ 100 mls/hr 1X ONCE IV Last administered on 09/13/16 09:24; Start 09/13/16 at 09:45; Stop 09/13/16 at 10:14; Status DC Piperacillin Sod/ Tazobactam Sod 2.25 gm/Sodium Chloride 50 ml @ 100 mls/hr Q8HRS IV Last administered on 09/14/16 06:33; Start 09/13/16 at 20:00 Sodium Chloride 500 ml @ 500 mls/hr 1X ONCE IV Last administered on 09/13/16 10:00; Start 09/13/16 at 10:00; Stop 09/13/16 at 10:59; Status DC Sodium Chloride 1,000 ml @ 1,000 mls/hr 1X ONCE IV Last administered on 12:45; Start 09/13/16 at 12:45; Stop 09/13/16 at 13:44; Status DC Tramadol HCl (Ultram) 50 mg PRN Q6HRS PRN PO PAIN Last administered on 04:05; Start 09/13/16 at 14:00 Vancomycin HCl 500 mg/Sodium Chloride 100 ml @ 100 mls/hr QTUTHSA IV ; Start at 16:00 Vancomycin HCl 2 gm/Sodium Chloride 500 ml @ 250 mls/hr 1X ONCE IV Last administered on 09/13/16 09:58; Start 09/13/16 at 10:15; Stop 09/13/16 at 12:14; Status DC Allergy Allergies Coded Allergies Type Severity Reaction Last Updated Verified No Known Drug Allergies 09/13/16 No Physical Exam Physical Exam General appearance - alert,well appearing, and in no distress and oriented to person, place, and time Mental Status - alert, oriented to person, place, and time, affect appropriate to mood Head - normal Chest - clear to auscultation, no wheezes, rales or rhonchi, symmetric air entry Heart - S1 and S2 normal Abdomen - soft, nontender, nondistended, no masses or organomegaly Neurological - alert and oriented Musculoskeletal - no muscular tenderness noted Extremities - no pedal edema Skin - warm and dry Labs Laboratory Tests Test 09/13/16 08:35 09/13/16 11:00 09/13/16 11:40 09/13/16 18:20 White Blood Count 11.0 x10^3/uL (4.0-11.0) Red Blood Count 3.63 x10^6/uL (4.30-5.70) Hemoglobin 10.7 g/dL (13.0-17.5) Hematocrit 31.9 % (39.0-53.0) Mean Corpuscular Volume 88 fL (79-100) Mean Corpuscular Hemoglobin 30 pg (25-35) Mean Corpuscular Hemoglobin Concent 34 g/dL (31-37) Red Cell Distribution Width 17.0 % (11.5-14.5) Platelet Count 150 x10^3/uL (140-400) Neutrophils (%) (Auto) 95 % (31-73) Lymphocytes (%) (Auto) 3 % (24-48) Monocytes (%) (Auto) 2 % (0-9) Eosinophils (%) (Auto) 0 % (0-3) Basophils (%) (Auto) 0 % (0-3) Neutrophils # (Auto) 10.4 x10^3uL (1.8-7.7) Lymphocytes # (Auto) 0.3 x10^3/uL (1.0-4.8) Monocytes # (Auto) 0.2 x10^3/uL (0.0-1.1) Eosinophils # (Auto) 0.0 x10^3/uL (0.0-0.7) Basophils # (Auto) 0.0 x10^3/uL (0.0-0.2) Segmented Neutrophils % 75 % (35-66) Band Neutrophils % 21 % (0-9) Lymphocytes % 4 % (24-48) Platelet Estimate Adequate (ADEQUATE) Sodium Level 137 mmol/L (136-145) Potassium Level 5.1 mmol/L (3.5-5.1) Chloride Level 102 mmol/L (98-107) Carbon Dioxide Level 19 mmol/L (21-32) Anion Gap 16 (6-14) Blood Urea Nitrogen 64 mg/dL (8-26) Creatinine 8.6 mg/dL (0.7-1.3) Estimated GFR (Cockcroft-Gault) 6.4 Glucose Level 150 mg/dL (70-99) Lactic Acid Level 4.3 mmol/L (0.4-2.0) 0.7 mmol/L (0.4-2.0) Calcium Level 8.1 mg/dL (8.5-10.1) Total Bilirubin 0.6 mg/dL (0.2-1.0) Direct Bilirubin 0.2 mg/dL (0.0-0.2) Aspartate Amino Transf (AST/SGOT) 16 U/L (15-37) Alanine Aminotransferase (ALT/SGPT) 14 U/L (16-63) Alkaline Phosphatase 48 U/L (46-116) Troponin I Quantitative 0.043 ng/mL (0.000-0.055) TX-[id number]-Type Natriuretic Peptide > 14416 pg/mL (0-124) Total Protein 6.7 g/dL (6.4-8.2) Albumin 3.5 g/dL (3.4-5.0) Lipase 79 U/L (73-393) Nasal Screen MRSA (PCR) Negative (Negative) Urine Collection Type Unknown Urine Color [place] Urine Clarity Cloudy Urine pH 5.5 Urine Specific [place] 1.015 Urine Protein >=300 mg/dL (NEG-TRACE) Urine Glucose (UA) Negative mg/dL (NEG) Urine Ketones (Stick) Negative mg/dL (NEG) Urine Blood Large (NEG) Urine Nitrite Negative (NEG) Urine Bilirubin Negative (NEG) Urine Urobilinogen Dipstick 0.2 mg/dL (0.2 mg/dL) Urine Leukocyte Esterase Moderate (NEG) Urine RBC Tntc /HPF (0-2) Urine WBC 11-20 /HPF (0-4) Urine Bacteria Few /HPF (0-FEW) Urine Mucus Mod /LPF Test 09/14/16 03:45 09/14/16 08:25 White Blood Count 7.9 x10^3/uL (4.0-11.0) Red Blood Count 2.88 x10^6/uL (4.30-5.70) Hemoglobin 8.5 g/dL (13.0-17.5) Hematocrit 25.8 % (39.0-53.0) Mean Corpuscular Volume 89 fL (79-100) Mean Corpuscular Hemoglobin 30 pg (25-35) Mean Corpuscular Hemoglobin Concent 33 g/dL (31-37) Red Cell Distribution Width 17.3 % (11.5-14.5) Platelet Count 108 x10^3/uL (140-400) Neutrophils (%) (Auto) 87 % (31-73) Lymphocytes (%) (Auto) 6 % (24-48) Monocytes (%) (Auto) 7 % (0-9) Eosinophils (%) (Auto) 0 % (0-3) Basophils (%) (Auto) 0 % (0-3) Neutrophils # (Auto) 6.9 x10^3uL (1.8-7.7) Lymphocytes # (Auto) 0.5 x10^3/uL (1.0-4.8) Monocytes # (Auto) 0.5 x10^3/uL (0.0-1.1) Eosinophils # (Auto) 0.0 x10^3/uL (0.0-0.7) Basophils # (Auto) 0.0 x10^3/uL (0.0-0.2) Sodium Level 139 mmol/L (136-145) Potassium Level 5.3 mmol/L (3.5-5.1) Chloride Level 105 mmol/L (98-107) Carbon Dioxide Level 19 mmol/L (21-32) Anion Gap 15 (6-14) Blood Urea Nitrogen 78 mg/dL (8-26) Creatinine 9.8 mg/dL (0.7-1.3) Estimated GFR (Cockcroft-Gault) 5.5 Glucose Level 115 mg/dL (70-99) Calcium Level 7.2 mg/dL (8.5-10.1) Prothrombin Time 13.7 SEC (11.7-14.0) Prothromb Time International Ratio 1.1 (0.8-1.1) Laboratory Tests Test 09/13/16 11:00 09/13/16 11:40 09/13/16 18:20 09/14/16 03:45 Nasal Screen MRSA (PCR) Negative (Negative) Lactic Acid Level 0.7 mmol/L (0.4-2.0) Urine Collection Type Unknown Urine Color [place] Urine Clarity Cloudy Urine pH 5.5 Urine Specific [place] 1.015 Urine Protein >=300 mg/dL (NEG-TRACE) Urine Glucose (UA) Negative mg/dL (NEG) Urine Ketones (Stick) Negative mg/dL (NEG) Urine Blood Large (NEG) Urine Nitrite Negative (NEG) Urine Bilirubin Negative (NEG) Urine Urobilinogen Dipstick 0.2 mg/dL (0.2 mg/dL) Urine Leukocyte Esterase Moderate (NEG) Urine RBC Tntc /HPF (0-2) Urine WBC 11-20 /HPF (0-4) Urine Bacteria Few /HPF (0-FEW) Urine Mucus Mod /LPF White Blood Count 7.9 x10^3/uL (4.0-11.0) Red Blood Count 2.88 x10^6/uL (4.30-5.70) Hemoglobin 8.5 g/dL (13.0-17.5) Hematocrit 25.8 % (39.0-53.0) Mean Corpuscular Volume 89 fL (79-100) Mean Corpuscular Hemoglobin 30 pg (25-35) Mean Corpuscular Hemoglobin Concent 33 g/dL (31-37) Red Cell Distribution Width 17.3 % (11.5-14.5) Platelet Count 108 x10^3/uL (140-400) Neutrophils (%) (Auto) 87 % (31-73) Lymphocytes (%) (Auto) 6 % (24-48) Monocytes (%) (Auto) 7 % (0-9) Eosinophils (%) (Auto) 0 % (0-3) Basophils (%) (Auto) 0 % (0-3) Neutrophils # (Auto) 6.9 x10^3uL (1.8-7.7) Lymphocytes # (Auto) 0.5 x10^3/uL (1.0-4.8) Monocytes # (Auto) 0.5 x10^3/uL (0.0-1.1) Eosinophils # (Auto) 0.0 x10^3/uL (0.0-0.7) Basophils # (Auto) 0.0 x10^3/uL (0.0-0.2) Sodium Level 139 mmol/L (136-145) Potassium Level 5.3 mmol/L (3.5-5.1) Chloride Level 105 mmol/L (98-107) Carbon Dioxide Level 19 mmol/L (21-32) Anion Gap 15 (6-14) Blood Urea Nitrogen 78 mg/dL (8-26) Creatinine 9.8 mg/dL (0.7-1.3) Estimated GFR (Cockcroft-Gault) 5.5 Glucose Level 115 mg/dL (70-99) Calcium Level 7.2 mg/dL (8.5-10.1) Test 09/14/16 08:25 Prothrombin Time 13.7 SEC (11.7-14.0) Prothromb Time International Ratio 1.1 (0.8-1.1) Vitals Vital Signs Date Time Temp Pulse Resp B/P (MAP) Pulse Ox O2 Delivery O2 Flow Rate FiO2 09/14/16 07:00 98.2 83 16 114/59 (77) 93 Room Air 98.2 Assessment Assessment Fever and chills ESRD on HD HD cath infection likely HTN Plan Plan cont vanc and zosyn d/w dr Tylor Kerr, HD cath removal today check cultures FAMILIA KERR MD Sep 14, 2016 09:57
[2016-09-14] MEDS ORDERED: LIDOCAINE 1% / SOD BICARB 8.4% 20 ML VIAL. IJ ONE (10:15)
[2016-09-14] MEDS ORDERED: LIDOCAINE 1%/EPI 1:100,000 20 ML VIAL. INJ ONE (10:30)
[2016-09-14 10:47] VITALS: BP 121/66
--- NOTE | 2016-09-14 11:09 | PDOC ---
PROGRESS NOTES Chief Complaint Chief Complaint 1. sepsis, with GPC bacteremia from infected HD cath (removed 09/14/16) 2. ESRD on HD TTS 3. htn, controlled 4. bandemia 5. metabolic acidosis 6. lactate acidosis, POA, normal now on day 2 7. anemia of CKD History of Present Illness History of Present Illness No fevers, LActate normal now from 4 HD cath removed today Will get HD today (usual schedule is [facility]) Creat is 9 Normal WBC Micor just called, GPC in 3/4 bottles HAs left AV fistula functioning ok pLAN: COnt IV vanc until identification of GPC HD per renal Tylenol for fever MOnitor temps Dw CARLOS Fink Vitals Vitals Vital Signs Date Time Temp Pulse Resp B/P (MAP) Pulse Ox O2 Delivery O2 Flow Rate FiO2 09/14/16 10:47 98.0 90 18 121/66 (84) 94 Room Air 98.0 Physical Exam General: Alert, Oriented X3, Cooperative, No acute distress Heart: Regular rate, Normal S1, Normal S2 Lungs: Clear, Wheezing Abdomen: Normal bowel sounds, Soft, No tenderness, No hepatosplenomegaly Extremities: No clubbing, No cyanosis, No edema, Normal pulses Skin: No rashes, No breakdown, No significant lesion Labs LABS Laboratory Tests Test 09/13/16 11:40 09/13/16 18:20 09/14/16 03:45 09/14/16 08:25 Lactic Acid Level 0.7 mmol/L (0.4-2.0) Urine Collection Type Unknown Urine Color [place] Urine Clarity Cloudy Urine pH 5.5 Urine Specific [place] 1.015 Urine Protein >=300 mg/dL (NEG-TRACE) Urine Glucose (UA) Negative mg/dL (NEG) Urine Ketones (Stick) Negative mg/dL (NEG) Urine Blood Large (NEG) Urine Nitrite Negative (NEG) Urine Bilirubin Negative (NEG) Urine Urobilinogen Dipstick 0.2 mg/dL (0.2 mg/dL) Urine Leukocyte Esterase Moderate (NEG) Urine RBC Tntc /HPF (0-2) Urine WBC 11-20 /HPF (0-4) Urine Bacteria Few /HPF (0-FEW) Urine Mucus Mod /LPF White Blood Count 7.9 x10^3/uL (4.0-11.0) Red Blood Count 2.88 x10^6/uL (4.30-5.70) Hemoglobin 8.5 g/dL (13.0-17.5) Hematocrit 25.8 % (39.0-53.0) Mean Corpuscular Volume 89 fL (79-100) Mean Corpuscular Hemoglobin 30 pg (25-35) Mean Corpuscular Hemoglobin Concent 33 g/dL (31-37) Red Cell Distribution Width 17.3 % (11.5-14.5) Platelet Count 108 x10^3/uL (140-400) Neutrophils (%) (Auto) 87 % (31-73) Lymphocytes (%) (Auto) 6 % (24-48) Monocytes (%) (Auto) 7 % (0-9) Eosinophils (%) (Auto) 0 % (0-3) Basophils (%) (Auto) 0 % (0-3) Neutrophils # (Auto) 6.9 x10^3uL (1.8-7.7) Lymphocytes # (Auto) 0.5 x10^3/uL (1.0-4.8) Monocytes # (Auto) 0.5 x10^3/uL (0.0-1.1) Eosinophils # (Auto) 0.0 x10^3/uL (0.0-0.7) Basophils # (Auto) 0.0 x10^3/uL (0.0-0.2) Sodium Level 139 mmol/L (136-145) Potassium Level 5.3 mmol/L (3.5-5.1) Chloride Level 105 mmol/L (98-107) Carbon Dioxide Level 19 mmol/L (21-32) Anion Gap 15 (6-14) Blood Urea Nitrogen 78 mg/dL (8-26) Creatinine 9.8 mg/dL (0.7-1.3) Estimated GFR (Cockcroft-Gault) 5.5 Glucose Level 115 mg/dL (70-99) Calcium Level 7.2 mg/dL (8.5-10.1) Prothrombin Time 13.7 SEC (11.7-14.0) Prothromb Time International Ratio 1.1 (0.8-1.1) Review of Systems Review of Systems neg 14 pt reviewed Assessment and Plan Assessmemt and Plan Problems Medical Problems: (1) End stage renal disease Status: Acute (2) Fever Status: Acute (3) Tachycardia Status: Acute Problems: Comment Review of Relevant I have reviewed the following items veena (where applicable) has been applied. Labs Laboratory Tests Test 09/13/16 08:35 09/13/16 11:00 09/13/16 11:40 09/13/16 18:20 White Blood Count 11.0 x10^3/uL (4.0-11.0) Red Blood Count 3.63 x10^6/uL (4.30-5.70) Hemoglobin 10.7 g/dL (13.0-17.5) Hematocrit 31.9 % (39.0-53.0) Mean Corpuscular Volume 88 fL (79-100) Mean Corpuscular Hemoglobin 30 pg (25-35) Mean Corpuscular Hemoglobin Concent 34 g/dL (31-37) Red Cell Distribution Width 17.0 % (11.5-14.5) Platelet Count 150 x10^3/uL (140-400) Neutrophils (%) (Auto) 95 % (31-73) Lymphocytes (%) (Auto) 3 % (24-48) Monocytes (%) (Auto) 2 % (0-9) Eosinophils (%) (Auto) 0 % (0-3) Basophils (%) (Auto) 0 % (0-3) Neutrophils # (Auto) 10.4 x10^3uL (1.8-7.7) Lymphocytes # (Auto) 0.3 x10^3/uL (1.0-4.8) Monocytes # (Auto) 0.2 x10^3/uL (0.0-1.1) Eosinophils # (Auto) 0.0 x10^3/uL (0.0-0.7) Basophils # (Auto) 0.0 x10^3/uL (0.0-0.2) Segmented Neutrophils % 75 % (35-66) Band Neutrophils % 21 % (0-9) Lymphocytes % 4 % (24-48) Platelet Estimate Adequate (ADEQUATE) Sodium Level 137 mmol/L (136-145) Potassium Level 5.1 mmol/L (3.5-5.1) Chloride Level 102 mmol/L (98-107) Carbon Dioxide Level 19 mmol/L (21-32) Anion Gap 16 (6-14) Blood Urea Nitrogen 64 mg/dL (8-26) Creatinine 8.6 mg/dL (0.7-1.3) Estimated GFR (Cockcroft-Gault) 6.4 Glucose Level 150 mg/dL (70-99) Lactic Acid Level 4.3 mmol/L (0.4-2.0) 0.7 mmol/L (0.4-2.0) Calcium Level 8.1 mg/dL (8.5-10.1) Total Bilirubin 0.6 mg/dL (0.2-1.0) Direct Bilirubin 0.2 mg/dL (0.0-0.2) Aspartate Amino Transf (AST/SGOT) 16 U/L (15-37) Alanine Aminotransferase (ALT/SGPT) 14 U/L (16-63) Alkaline Phosphatase 48 U/L (46-116) Troponin I Quantitative 0.043 ng/mL (0.000-0.055) KK-[id number]-Type Natriuretic Peptide > 28874 pg/mL (0-124) Total Protein 6.7 g/dL (6.4-8.2) Albumin 3.5 g/dL (3.4-5.0) Lipase 79 U/L (73-393) Nasal Screen MRSA (PCR) Negative (Negative) Urine Collection Type Unknown Urine Color [place] Urine Clarity Cloudy Urine pH 5.5 Urine Specific [place] 1.015 Urine Protein >=300 mg/dL (NEG-TRACE) Urine Glucose (UA) Negative mg/dL (NEG) Urine Ketones (Stick) Negative mg/dL (NEG) Urine Blood Large (NEG) Urine Nitrite Negative (NEG) Urine Bilirubin Negative (NEG) Urine Urobilinogen Dipstick 0.2 mg/dL (0.2 mg/dL) Urine Leukocyte Esterase Moderate (NEG) Urine RBC Tntc /HPF (0-2) Urine WBC 11-20 /HPF (0-4) Urine Bacteria Few /HPF (0-FEW) Urine Mucus Mod /LPF Test 09/14/16 03:45 09/14/16 08:25 White Blood Count 7.9 x10^3/uL (4.0-11.0) Red Blood Count 2.88 x10^6/uL (4.30-5.70) Hemoglobin 8.5 g/dL (13.0-17.5) Hematocrit 25.8 % (39.0-53.0) Mean Corpuscular Volume 89 fL (79-100) Mean Corpuscular Hemoglobin 30 pg (25-35) Mean Corpuscular Hemoglobin Concent 33 g/dL (31-37) Red Cell Distribution Width 17.3 % (11.5-14.5) Platelet Count 108 x10^3/uL (140-400) Neutrophils (%) (Auto) 87 % (31-73) Lymphocytes (%) (Auto) 6 % (24-48) Monocytes (%) (Auto) 7 % (0-9) Eosinophils (%) (Auto) 0 % (0-3) Basophils (%) (Auto) 0 % (0-3) Neutrophils # (Auto) 6.9 x10^3uL (1.8-7.7) Lymphocytes # (Auto) 0.5 x10^3/uL (1.0-4.8) Monocytes # (Auto) 0.5 x10^3/uL (0.0-1.1) Eosinophils # (Auto) 0.0 x10^3/uL (0.0-0.7) Basophils # (Auto) 0.0 x10^3/uL (0.0-0.2) Sodium Level 139 mmol/L (136-145) Potassium Level 5.3 mmol/L (3.5-5.1) Chloride Level 105 mmol/L (98-107) Carbon Dioxide Level 19 mmol/L (21-32) Anion Gap 15 (6-14) Blood Urea Nitrogen 78 mg/dL (8-26) Creatinine 9.8 mg/dL (0.7-1.3) Estimated GFR (Cockcroft-Gault) 5.5 Glucose Level 115 mg/dL (70-99) Calcium Level 7.2 mg/dL (8.5-10.1) Prothrombin Time 13.7 SEC (11.7-14.0) Prothromb Time International Ratio 1.1 (0.8-1.1) Laboratory Tests Test 09/13/16 11:40 09/13/16 18:20 09/14/16 03:45 09/14/16 08:25 Lactic Acid Level 0.7 mmol/L (0.4-2.0) Urine Collection Type Unknown Urine Color [place] Urine Clarity Cloudy Urine pH 5.5 Urine Specific [place] 1.015 Urine Protein >=300 mg/dL (NEG-TRACE) Urine Glucose (UA) Negative mg/dL (NEG) Urine Ketones (Stick) Negative mg/dL (NEG) Urine Blood Large (NEG) Urine Nitrite Negative (NEG) Urine Bilirubin Negative (NEG) Urine Urobilinogen Dipstick 0.2 mg/dL (0.2 mg/dL) Urine Leukocyte Esterase Moderate (NEG) Urine RBC Tntc /HPF (0-2) Urine WBC 11-20 /HPF (0-4) Urine Bacteria Few /HPF (0-FEW) Urine Mucus Mod /LPF White Blood Count 7.9 x10^3/uL (4.0-11.0) Red Blood Count 2.88 x10^6/uL (4.30-5.70) Hemoglobin 8.5 g/dL (13.0-17.5) Hematocrit 25.8 % (39.0-53.0) Mean Corpuscular Volume 89 fL (79-100) Mean Corpuscular Hemoglobin 30 pg (25-35) Mean Corpuscular Hemoglobin Concent 33 g/dL (31-37) Red Cell Distribution Width 17.3 % (11.5-14.5) Platelet Count 108 x10^3/uL (140-400) Neutrophils (%) (Auto) 87 % (31-73) Lymphocytes (%) (Auto) 6 % (24-48) Monocytes (%) (Auto) 7 % (0-9) Eosinophils (%) (Auto) 0 % (0-3) Basophils (%) (Auto) 0 % (0-3) Neutrophils # (Auto) 6.9 x10^3uL (1.8-7.7) Lymphocytes # (Auto) 0.5 x10^3/uL (1.0-4.8) Monocytes # (Auto) 0.5 x10^3/uL (0.0-1.1) Eosinophils # (Auto) 0.0 x10^3/uL (0.0-0.7) Basophils # (Auto) 0.0 x10^3/uL (0.0-0.2) Sodium Level 139 mmol/L (136-145) Potassium Level 5.3 mmol/L (3.5-5.1) Chloride Level 105 mmol/L (98-107) Carbon Dioxide Level 19 mmol/L (21-32) Anion Gap 15 (6-14) Blood Urea Nitrogen 78 mg/dL (8-26) Creatinine 9.8 mg/dL (0.7-1.3) Estimated GFR (Cockcroft-Gault) 5.5 Glucose Level 115 mg/dL (70-99) Calcium Level 7.2 mg/dL (8.5-10.1) Prothrombin Time 13.7 SEC (11.7-14.0) Prothromb Time International Ratio 1.1 (0.8-1.1) Microbiology 09/13/16 Blood Culture - Final, Complete Medications Current Medications Vancomycin HCl (Vanco Per Pharmacy) 1 each PRN DAILY PRN MC SEE COMMENTS Last administered on 09/13/16 12:44; Start 09/13/16 at 09:00 Piperacillin Sod/ Tazobactam Sod (Zosyn Per Pharmacy) 1 each PRN DAILY PRN MC SEE COMMENTS; Start 09/13/16 at 09:00 Sodium Chloride 500 ml @ 500 mls/hr 1X ONCE IV Last administered on 09/13/16 09:06; Start 09/13/16 at 09:00; Stop 09/13/16 at 09:59; Status DC Acetaminophen (Tylenol) 650 mg 1X ONCE PO Last administered on 09/13/16 09:06 ; Start 09/13/16 at 09:00; Stop 09/13/16 at 09:04; Status DC Piperacillin Sod/ Tazobactam Sod 2.25 gm/Sodium Chloride 50 ml @ 100 mls/hr 1X ONCE IV Last administered on 09/13/16 09:24; Start 09/13/16 at 09:45; Stop 09/13/16 at 10:14; Status DC Ondansetron HCl (Zofran) 4 mg 1X ONCE IV Last administered on 09/13/16 09:05; Start 09/13/16 at 09:15; Stop 09/13/16 at 09:16; Status DC Vancomycin HCl 2 gm/Sodium Chloride 500 ml @ 250 mls/hr 1X ONCE IV Last administered on 09/13/16 09:58; Start 09/13/16 at 10:15; Stop 09/13/16 at 12:14; Status DC Ondansetron HCl (Zofran) 4 mg STK-MED ONCE .ROUTE ; Start 09/13/16 at 09:03; Stop 09/13/16 at 09:04; Status DC Ondansetron HCl (Zofran) 4 mg PRN Q8HRS PRN IV NAUSEA/VOMITING; Start 09/13/16 at 10:00; Stop 09/13/16 at 13:55; Status DC Morphine Sulfate 2 mg PRN Q2HR PRN IV PAIN; Start 09/13/16 at 10:00; Stop at 13:55; Status DC Sodium Chloride 500 ml @ 500 mls/hr 1X ONCE IV Last administered on 09/13/16 10:00; Start 09/13/16 at 10:00; Stop 09/13/16 at 10:59; Status DC Piperacillin Sod/ Tazobactam Sod 2.25 gm/Sodium Chloride 50 ml @ 100 mls/hr Q8HRS IV Last administered on 09/14/16 06:33; Start 09/13/16 at 20:00 Vancomycin HCl 500 mg/Sodium Chloride 100 ml @ 100 mls/hr QTUTHSA IV ; Start at 16:00 Sodium Chloride 1,000 ml @ 1,000 mls/hr 1X ONCE IV Last administered on 12:45; Start 09/13/16 at 12:45; Stop 09/13/16 at 13:44; Status DC Acetaminophen (Tylenol) 650 mg PRN Q6HRS PRN PO FEVER Last administered on 18:27; Start 09/13/16 at 14:00 Ondansetron HCl (Zofran) 4 mg PRN Q6HRS PRN IV NAUSEA/VOMITING; Start 09/13/16 at 14:00 Morphine Sulfate 2 mg PRN Q2HR PRN IV PAIN; Start 09/13/16 at 14:00 Tramadol HCl (Ultram) 50 mg PRN Q6HRS PRN PO PAIN Last administered on 04:05; Start 09/13/16 at 14:00 Hydralazine HCl (Apresoline) 10 mg PRN Q4HRS PRN IVP ELEVATED BP, SEE COMMENTS ; Start 09/13/16 at 14:00 Docusate Sodium (Colace) 100 mg PRN DAILY PRN PO CONSTIPATION; Start 09/13/16 at 14:00 Heparin Sodium (Porcine) (Heparin Sq) 5,000 unit Q8HRS SQ Last administered on 09/14/16 06:40; Start 09/13/16 at 14:00 Amlodipine Besylate (Norvasc) 10 mg DAILY PO ; Start 09/14/16 at 09:00 Hydralazine HCl (Apresoline) 50 mg TID PO ; Start 09/14/16 at 09:00 Lidocaine/ Epinephrine (Xylocaine 1%-Epi 1:100,000) 20 ml STK-MED ONCE .ROUTE ; Start 09/14/16 at 09:54; Stop 09/14/16 at 09:55; Status DC Lidocaine/Sodium Bicarbonate (Buffered Lidocaine 1%) 3 ml 1X ONCE IJ ; Start at 10:15; Stop 09/14/16 at 10:16; Status DC Lidocaine/ Epinephrine (Xylocaine 1%-Epi 1:100,000) 4 ml 1X ONCE INJ Last administered on 09/14/16 10:22; Start 09/14/16 at 10:30; Stop 09/14/16 at 10:33; Status DC Active Scripts Active Reported Amlodipine Besylate 10 Mg Tablet 10 Mg PO DAILY Hydralazine Hcl 50 Mg Tablet 1 Tab PO TID Vitals/I & O Vital Sign - Last 24 Hours 09/13/16 09/13/16 09/13/16 09/13/16 12:00 12:00 13:00 14:00 Temp 100.4 100.4 Pulse 90 87 88 Resp 12 14 14 B/P (MAP) 110/60 (77) 101/60 (74) 106/62 (77) Pulse Ox 96 96 95 O2 Delivery Room Air Room Air Room Air Room Air 09/13/16 09/13/16 09/13/16 09/13/16 15:00 16:00 17:00 18:00 Temp 98.9 100.6 98.9 100.6 Pulse 80 82 85 98 Resp 13 14 13 16 B/P (MAP) 103/63 (76) 110/61 (77) 113/60 (77) 129/60 (83) Pulse Ox 97 96 98 94 O2 Delivery Room Air Room Air Room Air Room Air 09/13/16 09/13/16 09/13/16 09/14/16 18:35 20:33 23:43 03:00 Temp 99.9 98.2 99.9 98.2 Pulse 107 84 Resp 22 20 B/P (MAP) 105/52 (69) 117/54 (75) Pulse Ox 93 97 96 O2 Delivery Room Air Room Air Room Air Room Air 09/14/16 09/14/16 09/14/16 09/14/16 04:05 04:30 05:29 07:00 Temp 97.5 98.2 97.5 98.2 Pulse 84 83 Resp 16 20 15 16 B/P (MAP) 134/69 (90) 114/59 (77) Pulse Ox 97 97 97 93 O2 Delivery Room Air Room Air Room Air Room Air 09/14/16 10:47 Temp 98.0 98.0 Pulse 90 Resp 18 B/P (MAP) 121/66 (84) Pulse Ox 94 O2 Delivery Room Air Intake and Output 09/13/16 09/13/16 09/14/16 15:00 23:00 07:00 Intake Total 1650 ml 1200 ml Output Total 350 ml 250 ml Balance 1650 ml 850 ml -250 ml OMID TOBAR MD Sep 14, 2016 11:09
--- NOTE | 2016-09-14 11:43 | RAD ---
Removal of tunneled dialysis catheter 09/14/2016 Indication: Possible catheter infection. Patient also has a functional left upper extremity fistula Discussion: The risks and benefits of the procedure were discussed the patient. Informed consent was obtained. The right internal jugular tunneled dialysis catheter, right neck, right chest were prepped using sterile barrier technique. 1% lidocaine with an effort was administered to the skin and soft tissues overlying the tunneled portion of the catheter. Using minimal blunt dissection the subcutaneous cuff was freed and the catheter was removed intact. The tip was placed in a sterile container, should culture be desired. Manual pressure was held to achieve hemostasis. A sterile dressing was applied. Impression: Successful removal of right internal jugular tunnel dialysis catheter
--- NOTE | 2016-09-14 13:58 | PDOC ---
Dialysis Progress Note Dialysis Note Dialysis Note Seen on Hemodialysis, tolerating treatment Well so far Vitals on Hemodialysis: 112/57 87 afeb General Appearance: Awake: Alert Oriented x 3 Neck: No JVD or JVP Chest: CTA Xavier Heart: S1 S2 Abdomen - Soft NTND Extremities - No Edema ESRD : Dialysis as below F 180 NR 4.0 Hrs 2 K 2.5 Ca 140 Na 40 HC03 Qb 350 + Qd 500+ Heparin 0 Units Uf 0-1 Kgs or to dry weight as tolerated May give 25-50 gms of 25% Albumin if needed to maintain Hemodynamic stability Treatment plan reviewed and discussed with data operations manager Vitals Vital Signs Vital Signs Date Time Temp Pulse Resp B/P (MAP) Pulse Ox O2 Delivery O2 Flow Rate FiO2 09/14/16 10:47 98.0 90 18 121/66 (84) 94 Room Air 98.0 Labs Last Labs Laboratory Tests Test 09/13/16 08:35 09/13/16 11:00 09/13/16 11:40 09/13/16 18:20 White Blood Count 11.0 x10^3/uL (4.0-11.0) Red Blood Count 3.63 x10^6/uL (4.30-5.70) Hemoglobin 10.7 g/dL (13.0-17.5) Hematocrit 31.9 % (39.0-53.0) Mean Corpuscular Volume 88 fL (79-100) Mean Corpuscular Hemoglobin 30 pg (25-35) Mean Corpuscular Hemoglobin Concent 34 g/dL (31-37) Red Cell Distribution Width 17.0 % (11.5-14.5) Platelet Count 150 x10^3/uL (140-400) Neutrophils (%) (Auto) 95 % (31-73) Lymphocytes (%) (Auto) 3 % (24-48) Monocytes (%) (Auto) 2 % (0-9) Eosinophils (%) (Auto) 0 % (0-3) Basophils (%) (Auto) 0 % (0-3) Neutrophils # (Auto) 10.4 x10^3uL (1.8-7.7) Lymphocytes # (Auto) 0.3 x10^3/uL (1.0-4.8) Monocytes # (Auto) 0.2 x10^3/uL (0.0-1.1) Eosinophils # (Auto) 0.0 x10^3/uL (0.0-0.7) Basophils # (Auto) 0.0 x10^3/uL (0.0-0.2) Segmented Neutrophils % 75 % (35-66) Band Neutrophils % 21 % (0-9) Lymphocytes % 4 % (24-48) Platelet Estimate Adequate (ADEQUATE) Sodium Level 137 mmol/L (136-145) Potassium Level 5.1 mmol/L (3.5-5.1) Chloride Level 102 mmol/L (98-107) Carbon Dioxide Level 19 mmol/L (21-32) Anion Gap 16 (6-14) Blood Urea Nitrogen 64 mg/dL (8-26) Creatinine 8.6 mg/dL (0.7-1.3) Estimated GFR (Cockcroft-Gault) 6.4 Glucose Level 150 mg/dL (70-99) Lactic Acid Level 4.3 mmol/L (0.4-2.0) 0.7 mmol/L (0.4-2.0) Calcium Level 8.1 mg/dL (8.5-10.1) Total Bilirubin 0.6 mg/dL (0.2-1.0) Direct Bilirubin 0.2 mg/dL (0.0-0.2) Aspartate Amino Transf (AST/SGOT) 16 U/L (15-37) Alanine Aminotransferase (ALT/SGPT) 14 U/L (16-63) Alkaline Phosphatase 48 U/L (46-116) Troponin I Quantitative 0.043 ng/mL (0.000-0.055) ND-Qpq-G-Type Natriuretic Peptide > 03098 pg/mL (0-124) Total Protein 6.7 g/dL (6.4-8.2) Albumin 3.5 g/dL (3.4-5.0) Lipase 79 U/L (73-393) Nasal Screen MRSA (PCR) Negative (Negative) Urine Collection Type Unknown Urine Color [place] Urine Clarity Cloudy Urine pH 5.5 Urine Specific [place] 1.015 Urine Protein >=300 mg/dL (NEG-TRACE) Urine Glucose (UA) Negative mg/dL (NEG) Urine Ketones (Stick) Negative mg/dL (NEG) Urine Blood Large (NEG) Urine Nitrite Negative (NEG) Urine Bilirubin Negative (NEG) Urine Urobilinogen Dipstick 0.2 mg/dL (0.2 mg/dL) Urine Leukocyte Esterase Moderate (NEG) Urine RBC Tntc /HPF (0-2) Urine WBC 11-20 /HPF (0-4) Urine Bacteria Few /HPF (0-FEW) Urine Mucus Mod /LPF Test 09/14/16 03:45 09/14/16 08:25 White Blood Count 7.9 x10^3/uL (4.0-11.0) Red Blood Count 2.88 x10^6/uL (4.30-5.70) Hemoglobin 8.5 g/dL (13.0-17.5) Hematocrit 25.8 % (39.0-53.0) Mean Corpuscular Volume 89 fL (79-100) Mean Corpuscular Hemoglobin 30 pg (25-35) Mean Corpuscular Hemoglobin Concent 33 g/dL (31-37) Red Cell Distribution Width 17.3 % (11.5-14.5) Platelet Count 108 x10^3/uL (140-400) Neutrophils (%) (Auto) 87 % (31-73) Lymphocytes (%) (Auto) 6 % (24-48) Monocytes (%) (Auto) 7 % (0-9) Eosinophils (%) (Auto) 0 % (0-3) Basophils (%) (Auto) 0 % (0-3) Neutrophils # (Auto) 6.9 x10^3uL (1.8-7.7) Lymphocytes # (Auto) 0.5 x10^3/uL (1.0-4.8) Monocytes # (Auto) 0.5 x10^3/uL (0.0-1.1) Eosinophils # (Auto) 0.0 x10^3/uL (0.0-0.7) Basophils # (Auto) 0.0 x10^3/uL (0.0-0.2) Sodium Level 139 mmol/L (136-145) Potassium Level 5.3 mmol/L (3.5-5.1) Chloride Level 105 mmol/L (98-107) Carbon Dioxide Level 19 mmol/L (21-32) Anion Gap 15 (6-14) Blood Urea Nitrogen 78 mg/dL (8-26) Creatinine 9.8 mg/dL (0.7-1.3) Estimated GFR (Cockcroft-Gault) 5.5 Glucose Level 115 mg/dL (70-99) Calcium Level 7.2 mg/dL (8.5-10.1) Prothrombin Time 13.7 SEC (11.7-14.0) Prothromb Time International Ratio 1.1 (0.8-1.1) Laboratory Tests Test 09/13/16 18:20 09/14/16 03:45 09/14/16 08:25 Urine Collection Type Unknown Urine Color [place] Urine Clarity Cloudy Urine pH 5.5 Urine Specific [place] 1.015 Urine Protein >=300 mg/dL (NEG-TRACE) Urine Glucose (UA) Negative mg/dL (NEG) Urine Ketones (Stick) Negative mg/dL (NEG) Urine Blood Large (NEG) Urine Nitrite Negative (NEG) Urine Bilirubin Negative (NEG) Urine Urobilinogen Dipstick 0.2 mg/dL (0.2 mg/dL) Urine Leukocyte Esterase Moderate (NEG) Urine RBC Tntc /HPF (0-2) Urine WBC 11-20 /HPF (0-4) Urine Bacteria Few /HPF (0-FEW) Urine Mucus Mod /LPF White Blood Count 7.9 x10^3/uL (4.0-11.0) Red Blood Count 2.88 x10^6/uL (4.30-5.70) Hemoglobin 8.5 g/dL (13.0-17.5) Hematocrit 25.8 % (39.0-53.0) Mean Corpuscular Volume 89 fL (79-100) Mean Corpuscular Hemoglobin 30 pg (25-35) Mean Corpuscular Hemoglobin Concent 33 g/dL (31-37) Red Cell Distribution Width 17.3 % (11.5-14.5) Platelet Count 108 x10^3/uL (140-400) Neutrophils (%) (Auto) 87 % (31-73) Lymphocytes (%) (Auto) 6 % (24-48) Monocytes (%) (Auto) 7 % (0-9) Eosinophils (%) (Auto) 0 % (0-3) Basophils (%) (Auto) 0 % (0-3) Neutrophils # (Auto) 6.9 x10^3uL (1.8-7.7) Lymphocytes # (Auto) 0.5 x10^3/uL (1.0-4.8) Monocytes # (Auto) 0.5 x10^3/uL (0.0-1.1) Eosinophils # (Auto) 0.0 x10^3/uL (0.0-0.7) Basophils # (Auto) 0.0 x10^3/uL (0.0-0.2) Sodium Level 139 mmol/L (136-145) Potassium Level 5.3 mmol/L (3.5-5.1) Chloride Level 105 mmol/L (98-107) Carbon Dioxide Level 19 mmol/L (21-32) Anion Gap 15 (6-14) Blood Urea Nitrogen 78 mg/dL (8-26) Creatinine 9.8 mg/dL (0.7-1.3) Estimated GFR (Cockcroft-Gault) 5.5 Glucose Level 115 mg/dL (70-99) Calcium Level 7.2 mg/dL (8.5-10.1) Prothrombin Time 13.7 SEC (11.7-14.0) Prothromb Time International Ratio 1.1 (0.8-1.1) Assessment Assessment Problems Medical Problems: (1) End stage renal disease Status: Acute (2) Fever Status: Acute (3) Tachycardia Status: Acute Problems: Plan Plan of Care Problems Medical Problems: (1) End stage renal disease Status: Acute (2) Fever Status: Acute (3) Tachycardia Status: Acute RUSLAN KERR MD Sep 14, 2016 13:58
[2016-09-14] MEDS: VANCOMYCIN PER PHARMACY MC PRN (14:43)
[2016-09-14] MEDS ORDERED: VANCOMYCIN 500 MG in IV NORMAL SALINE 100ML 100 ML IV ONE (16:00)
[2016-09-14] MEDS ORDERED: DIALYSIS PATIENT. MC PRN ×2 (17:15)
[2016-09-14 19:00] VITALS: BP 112/65
[2016-09-14] MEDS: ACETAMINOPHEN 325 MG TABLET. PO PRN (20:39)
[2016-09-14 23:00] VITALS: BP 108/65
[2016-09-15 03:00] VITALS: BP 123/65
[2016-09-15] MEDS: PIPERACILLIN/TAZOBACTAM 2.25 GM in IV NORMAL SALINE 50ML 50 ML IV SCH (06:01)
[2016-09-15] MEDS: HEPARIN PF for SUB-Q USE 5,000 UNIT/0.5 ML VIAL. SQ SCH ×3 (06:07→21:30)
[2016-09-15 06:27] LABS: CALCIUM 6.8 mg/dL (8.5-10.1); CREATININE 6.6 mg/dL (0.7-1.3); GFR 8.7; POTASSIUM 3.9 mmol/L (3.5-5.1)
[2016-09-15 06:59] LABS: BASO % 1 % (0-3); EOS % 1 % (0-3); HEMATOCRIT 25.6 % (39.0-53.0); HEMOGLOBIN 8.7 g/dL (13.0-17.5); LYMPH # 0.6 x10^3/uL (1.0-4.8); LYMPH % 11 % (24-48); MEAN CORPUSCULAR HEMOGLOBIN 30 pg (25-35); MEAN CORPUSCULAR HGB CONC 34 g/dL (31-37); MEAN CORPUSCULAR VOLUME 87 fL (79-100); MONO % 10 % (0-9); NEUT % 77 % (31-73); PLATELET COUNT 96 x10^3/uL (140-400); RED BLOOD COUNT 2.92 x10^6/uL (4.30-5.70); RED CELL DISTRIBUTION WIDTH 16.6 % (11.5-14.5); WHITE BLOOD COUNT 4.9 x10^3/uL (4.0-11.0)
[2016-09-15 07:00] VITALS: BP 129/75
[2016-09-15] MEDS: traMADol 50 MG TABLET PO PRN (08:07)
[2016-09-15] MEDS: ACETAMINOPHEN 325 MG TABLET. PO PRN (08:08)
[2016-09-15] MEDS: amLODIPine BESYLATE 10 MG TABLET PO SCH (09:00)
--- NOTE | 2016-09-15 10:37 | PDOC ---
Infectious Disease Note Subjective Subjective not feeling well yet, still some fever ROS ROS GEN: Denies fevers, chills, sweats HEENT: Denies blurred vision, sore throat CV: Denies chest pain RESP: Denies shortness of air, cough GI: Denies n/v/d NEURO: Denies confusion, dizziness MSK: Denies weakness, joint pain/swelling Vital Sign Vital Signs Vital Signs Date Time Temp Pulse Resp B/P (MAP) Pulse Ox O2 Delivery O2 Flow Rate FiO2 09/15/16 08:07 Room Air 09/15/16 07:00 99.8 91 18 129/75 (93) 90 2.0 99.8 Physical Exam PHYSICAL EXAM GENERAL: NAD, Alert HEENT: PERRL, OC/OP NECK: Supple, no JVD, no LN LUNGS: Clear HEART: S1S2, no gallop, no murmur ABD: Soft, NT, no organomegaly, no rebound EXT: No edema, no cyanosis SENIOR BUSINESS PROCESS ANALYST: Alert, oriented x 3, no focal neurologic deficit SKIN: No rash IV: ok Labs Lab Laboratory Tests Test 09/14/16 13:55 09/15/16 05:40 Random Vancomycin Level 20.1 mcg/mL White Blood Count 4.9 x10^3/uL (4.0-11.0) Red Blood Count 2.92 x10^6/uL (4.30-5.70) Hemoglobin 8.7 g/dL (13.0-17.5) Hematocrit 25.6 % (39.0-53.0) Mean Corpuscular Volume 87 fL (79-100) Mean Corpuscular Hemoglobin 30 pg (25-35) Mean Corpuscular Hemoglobin Concent 34 g/dL (31-37) Red Cell Distribution Width 16.6 % (11.5-14.5) Platelet Count 96 x10^3/uL (140-400) Neutrophils (%) (Auto) 77 % (31-73) Lymphocytes (%) (Auto) 11 % (24-48) Monocytes (%) (Auto) 10 % (0-9) Eosinophils (%) (Auto) 1 % (0-3) Basophils (%) (Auto) 1 % (0-3) Neutrophils # (Auto) 3.8 x10^3uL (1.8-7.7) Lymphocytes # (Auto) 0.6 x10^3/uL (1.0-4.8) Monocytes # (Auto) 0.5 x10^3/uL (0.0-1.1) Eosinophils # (Auto) 0.1 x10^3/uL (0.0-0.7) Basophils # (Auto) 0.0 x10^3/uL (0.0-0.2) Sodium Level 141 mmol/L (136-145) Potassium Level 3.9 mmol/L (3.5-5.1) Chloride Level 100 mmol/L (98-107) Carbon Dioxide Level 33 mmol/L (21-32) Anion Gap 8 (6-14) Blood Urea Nitrogen 44 mg/dL (8-26) Creatinine 6.6 mg/dL (0.7-1.3) Estimated GFR (Cockcroft-Gault) 8.7 Glucose Level 108 mg/dL (70-99) Calcium Level 6.8 mg/dL (8.5-10.1) Micro BC + with staph Objective Assessment Fever and chills BC + with staph ESRD HTN Plan Plan of Care cont vanc d/c zosyn adjust as more info available d/w dr Tylor KERR,FAMILIA Lyle MD Sep 15, 2016 10:36
[2016-09-15 10:55] VITALS: BP 123/72
[2016-09-15] MEDS ORDERED: MAGNESIUM SULFATE 2GM 50 ML IV PRN (11:00)
--- NOTE | 2016-09-15 11:04 | PDOC ---
SUBJECTIVE ROS ESRD Feeling better overall but claims he had a fever this am CVS: no Orthopnea, no CP RESP: no SOB, no CHAUDHRY GI: no Nausea, no Vomiting : no Dysuria, no Urgency OBJECTIVE Vital Signs Vital Signs Date Time Temp Pulse Resp B/P (MAP) Pulse Ox O2 Delivery O2 Flow Rate FiO2 09/15/16 10:55 98.7 87 18 123/72 (89) 94 Room Air 98.7 09/15/16 07:00 2.0 I & 0 Intake and Output 09/15/16 07:00 Intake Total 2350 ml Balance 2350 ml Intake Oral 2350 ml # Voids 2 PHYSICAL EXAM Physical Exam GEN: Awake, Oriented x 3, In no distress EYES: Vision Unchanged, Conjunctiva Normal EN: No EN Drainage, Mucous Membranes moist NECK: no JVD, no JVP, Supple, no Thyromegaly CVS: S1S2, + Murmur, No Gallop, No Rub,no Edema RESP: no Rales, no Rhonchi,no Acc. Muscle Use GI: BS + ve, NO Bruit, Non Tender, Non Distended : no CVA tenderness, no Suprapubic Tenderness DIAGNOSIS/ASSESSMENT Assessment & Plan ESRD: Dialysis as below F 180 NR 3.5 Hrs 3 K 2.5 Ca 140 Na 30 HC03 Qb 350 + Qd 500+ Heparin 0 Units Uf to dry weight as tolerated May give 25-50 gms of 25% Albumin if needed to maintain Hemodynamic stability Treatment plan reviewed and discussed with sand blaster ^ed k from yest - now better after HD ANEMIA; Aranap as ordered, Transfuse with next HD as needed HTN: Current BP meds as reviewed. See orders for changes. BONE & MINERAL: follow Phos levels. Alter binder regimen as needed Infected HD Cath - now removed - await Cx to clear. Discussed Plan of Care with pt at bedside and Dr Darline Kerr Problems: COMMENT/RELEVANT DATA Meds Current Medications Medications (Trade) Dose Ordered Sig/Sajan Start Time Stop Time Status Last Admin Dose Admin Acetaminophen (Tylenol) 650 mg PRN Q6HRS PRN 09/13/16 14:00 09/15/16 08:08 650 MG Amlodipine Besylate (Norvasc) 10 mg DAILY 09/14/16 09:00 Docusate Sodium (Colace) 100 mg PRN DAILY PRN 09/13/16 14:00 Heparin Sodium (Porcine) (Heparin Sq) 5,000 unit Q8HRS 09/13/16 14:00 09/15/16 06:07 5,000 UNIT Hydralazine HCl (Apresoline) 50 mg TID 09/14/16 09:00 09/14/16 20:39 50 MG Info (PHARMACY MONITORING -- do not chart) 1 each PRN DAILY PRN 09/14/16 17:15 Lidocaine/ Epinephrine (Xylocaine 1%-Epi 1:100,000) 4 ml 1X ONCE 09/14/16 10:30 09/14/16 10:33 DC 09/14/16 10:22 4 ML Lidocaine/Sodium Bicarbonate (Buffered Lidocaine 1%) 3 ml 1X ONCE 09/14/16 10:15 09/14/16 10:16 DC Morphine Sulfate 2 mg PRN Q2HR PRN 09/13/16 14:00 Ondansetron HCl (Zofran) 4 mg PRN Q6HRS PRN 09/13/16 14:00 Piperacillin Sod/ Tazobactam Sod (Zosyn Per Pharmacy) 1 each PRN DAILY PRN 09/13/16 09:00 Piperacillin Sod/ Tazobactam Sod 2.25 gm/Sodium Chloride 50 ml @ 100 mls/hr Q8HRS 09/13/16 20:00 09/15/16 10:36 DC 09/15/16 06:01 100 MLS/HR Prednisone (Prednisone) 10 mg 1X ONCE 09/15/16 11:00 09/15/16 11:01 UNV Sodium Chloride 1,000 ml @ 1,000 mls/hr 1X ONCE 09/13/16 12:45 09/13/16 13:44 DC 09/13/16 12:45 1,000 MLS/HR Tramadol HCl (Ultram) 50 mg PRN Q6HRS PRN 09/13/16 14:00 09/15/16 08:07 50 MG Vancomycin HCl (Vanco Per Pharmacy) 1 each PRN DAILY PRN 09/13/16 09:00 09/14/16 14:43 1 EACH Vancomycin HCl 500 mg/Sodium Chloride 100 ml @ 100 mls/hr 1X ONCE 09/14/16 16:00 09/14/16 16:59 DC 09/14/16 18:22 100 MLS/HR Vancomycin HCl 2 gm/Sodium Chloride 500 ml @ 250 mls/hr 1X ONCE 09/13/16 10:15 09/13/16 12:14 DC 09/13/16 09:58 250 MLS/HR Lab Laboratory Tests Test 09/14/16 13:55 09/15/16 05:40 Random Vancomycin Level 20.1 mcg/mL White Blood Count 4.9 x10^3/uL (4.0-11.0) Red Blood Count 2.92 x10^6/uL (4.30-5.70) Hemoglobin 8.7 g/dL (13.0-17.5) Hematocrit 25.6 % (39.0-53.0) Mean Corpuscular Volume 87 fL (79-100) Mean Corpuscular Hemoglobin 30 pg (25-35) Mean Corpuscular Hemoglobin Concent 34 g/dL (31-37) Red Cell Distribution Width 16.6 % (11.5-14.5) Platelet Count 96 x10^3/uL (140-400) Neutrophils (%) (Auto) 77 % (31-73) Lymphocytes (%) (Auto) 11 % (24-48) Monocytes (%) (Auto) 10 % (0-9) Eosinophils (%) (Auto) 1 % (0-3) Basophils (%) (Auto) 1 % (0-3) Neutrophils # (Auto) 3.8 x10^3uL (1.8-7.7) Lymphocytes # (Auto) 0.6 x10^3/uL (1.0-4.8) Monocytes # (Auto) 0.5 x10^3/uL (0.0-1.1) Eosinophils # (Auto) 0.1 x10^3/uL (0.0-0.7) Basophils # (Auto) 0.0 x10^3/uL (0.0-0.2) Sodium Level 141 mmol/L (136-145) Potassium Level 3.9 mmol/L (3.5-5.1) Chloride Level 100 mmol/L (98-107) Carbon Dioxide Level 33 mmol/L (21-32) Anion Gap 8 (6-14) Blood Urea Nitrogen 44 mg/dL (8-26) Creatinine 6.6 mg/dL (0.7-1.3) Estimated GFR (Cockcroft-Gault) 8.7 Glucose Level 108 mg/dL (70-99) Calcium Level 6.8 mg/dL (8.5-10.1) RUSLAN KERR MD Sep 15, 2016 11:04
[2016-09-15 11:06] LABS: ANISOCYTOSIS PRESENT; PLT ESTIMATE DECREASED (ADEQUATE)
[2016-09-15] MEDS ORDERED: predniSONE 10 MG TABLET PO ONE (11:30)
--- NOTE | 2016-09-15 12:03 | PDOC ---
PROGRESS NOTES Chief Complaint Chief Complaint 1. sepsis, with GPC bacteremia (Staph gabrielaaus) from infected HD cath (removed ) 2. ESRD on HD TTS 3. htn, controlled 4. bandemia 5. metabolic acidosis 6. lactate acidosis, POA, normal now on day 2 7. anemia of CKD History of Present Illness History of Present Illness 101 temp last night CAth tip GS neg for organisms URINE CULTURE Final Final report URINE CULTURE RES 1 Final Staphylococcus aureus Greater than 100,000 colony forming units per mL Based on resistance to penicillin and susceptibility to oxacillin this isolate would be susceptible to: * Penicillinase-stable penicillins; such as: Cloxacillin Dicloxacillin Nafcillin * Beta-lactam/beta-lactamase inhibitor combinations; such as: Amoxicillin-clavulanic acid Ampicillin-sulbactam * Antistaphylococcal cephems; such as: Cefaclor Cefuroxime * Antistaphylococcal carbapenems; such as: Imipenem Meropenem ANTIMICROBIAL SUSCEPTIBILITY Final Comment S = Susceptible; I = Intermediate; R = Resistant P = Positive; N = Negative MICS are expressed in micrograms per mL Antibiotic RSLT#1 RSLT#2 RSLT#3 RSLT#4 Ciprofloxacin S Gentamicin S Levofloxacin S Linezolid S Moxifloxacin S Nitrofurantoin S Oxacillin S BC prelim STaph PLAN: MIGHT BE able tod eescalate from vanc as this watkins snot seem MRSAWill defer to ID - they are on pillowcase cutter again for temps, tylenol prn Due HD today PLan dw patient Vitals Vitals Vital Signs Date Time Temp Pulse Resp B/P (MAP) Pulse Ox O2 Delivery O2 Flow Rate FiO2 09/15/16 10:55 98.7 87 18 123/72 (89) 94 Room Air 98.7 09/15/16 07:00 2.0 Physical Exam General: Alert, Oriented X3, Cooperative, No acute distress Heart: Regular rate, Normal S1, Normal S2 Lungs: Clear, Wheezing Abdomen: Normal bowel sounds, Soft, No tenderness, No hepatosplenomegaly Extremities: No clubbing, No cyanosis, No edema, Normal pulses Skin: No rashes, No breakdown, No significant lesion Labs LABS Laboratory Tests Test 09/14/16 13:55 09/15/16 05:40 Random Vancomycin Level 20.1 mcg/mL White Blood Count 4.9 x10^3/uL (4.0-11.0) Red Blood Count 2.92 x10^6/uL (4.30-5.70) Hemoglobin 8.7 g/dL (13.0-17.5) Hematocrit 25.6 % (39.0-53.0) Mean Corpuscular Volume 87 fL (79-100) Mean Corpuscular Hemoglobin 30 pg (25-35) Mean Corpuscular Hemoglobin Concent 34 g/dL (31-37) Red Cell Distribution Width 16.6 % (11.5-14.5) Platelet Count 96 x10^3/uL (140-400) Neutrophils (%) (Auto) 77 % (31-73) Lymphocytes (%) (Auto) 11 % (24-48) Monocytes (%) (Auto) 10 % (0-9) Eosinophils (%) (Auto) 1 % (0-3) Basophils (%) (Auto) 1 % (0-3) Neutrophils # (Auto) 3.8 x10^3uL (1.8-7.7) Lymphocytes # (Auto) 0.6 x10^3/uL (1.0-4.8) Monocytes # (Auto) 0.5 x10^3/uL (0.0-1.1) Eosinophils # (Auto) 0.1 x10^3/uL (0.0-0.7) Basophils # (Auto) 0.0 x10^3/uL (0.0-0.2) Segmented Neutrophils % 70 % (35-66) Band Neutrophils % 16 % (0-9) Lymphocytes % 7 % (24-48) Monocytes % 7 % (0-10) Platelet Estimate Decreased (ADEQUATE) Anisocytosis Present Sodium Level 141 mmol/L (136-145) Potassium Level 3.9 mmol/L (3.5-5.1) Chloride Level 100 mmol/L (98-107) Carbon Dioxide Level 33 mmol/L (21-32) Anion Gap 8 (6-14) Blood Urea Nitrogen 44 mg/dL (8-26) Creatinine 6.6 mg/dL (0.7-1.3) Estimated GFR (Cockcroft-Gault) 8.7 Glucose Level 108 mg/dL (70-99) Calcium Level 6.8 mg/dL (8.5-10.1) Review of Systems Review of Systems fevers, all else is neg Assessment and Plan Assessmemt and Plan Problems Medical Problems: (1) End stage renal disease Status: Acute (2) Fever Status: Acute (3) Tachycardia Status: Acute Problems: Comment Review of Relevant I have reviewed the following items veena (where applicable) has been applied. Labs Laboratory Tests Test 09/13/16 18:20 09/14/16 03:45 09/14/16 08:25 09/14/16 13:55 Urine Collection Type Unknown Urine Color [place] Urine Clarity Cloudy Urine pH 5.5 Urine Specific [place] 1.015 Urine Protein >=300 mg/dL (NEG-TRACE) Urine Glucose (UA) Negative mg/dL (NEG) Urine Ketones (Stick) Negative mg/dL (NEG) Urine Blood Large (NEG) Urine Nitrite Negative (NEG) Urine Bilirubin Negative (NEG) Urine Urobilinogen Dipstick 0.2 mg/dL (0.2 mg/dL) Urine Leukocyte Esterase Moderate (NEG) Urine RBC Tntc /HPF (0-2) Urine WBC 11-20 /HPF (0-4) Urine Bacteria Few /HPF (0-FEW) Urine Mucus Mod /LPF White Blood Count 7.9 x10^3/uL (4.0-11.0) Red Blood Count 2.88 x10^6/uL (4.30-5.70) Hemoglobin 8.5 g/dL (13.0-17.5) Hematocrit 25.8 % (39.0-53.0) Mean Corpuscular Volume 89 fL (79-100) Mean Corpuscular Hemoglobin 30 pg (25-35) Mean Corpuscular Hemoglobin Concent 33 g/dL (31-37) Red Cell Distribution Width 17.3 % (11.5-14.5) Platelet Count 108 x10^3/uL (140-400) Neutrophils (%) (Auto) 87 % (31-73) Lymphocytes (%) (Auto) 6 % (24-48) Monocytes (%) (Auto) 7 % (0-9) Eosinophils (%) (Auto) 0 % (0-3) Basophils (%) (Auto) 0 % (0-3) Neutrophils # (Auto) 6.9 x10^3uL (1.8-7.7) Lymphocytes # (Auto) 0.5 x10^3/uL (1.0-4.8) Monocytes # (Auto) 0.5 x10^3/uL (0.0-1.1) Eosinophils # (Auto) 0.0 x10^3/uL (0.0-0.7) Basophils # (Auto) 0.0 x10^3/uL (0.0-0.2) Sodium Level 139 mmol/L (136-145) Potassium Level 5.3 mmol/L (3.5-5.1) Chloride Level 105 mmol/L (98-107) Carbon Dioxide Level 19 mmol/L (21-32) Anion Gap 15 (6-14) Blood Urea Nitrogen 78 mg/dL (8-26) Creatinine 9.8 mg/dL (0.7-1.3) Estimated GFR (Cockcroft-Gault) 5.5 Glucose Level 115 mg/dL (70-99) Calcium Level 7.2 mg/dL (8.5-10.1) Prothrombin Time 13.7 SEC (11.7-14.0) Prothromb Time International Ratio 1.1 (0.8-1.1) Random Vancomycin Level 20.1 mcg/mL Test 09/15/16 05:40 White Blood Count 4.9 x10^3/uL (4.0-11.0) Red Blood Count 2.92 x10^6/uL (4.30-5.70) Hemoglobin 8.7 g/dL (13.0-17.5) Hematocrit 25.6 % (39.0-53.0) Mean Corpuscular Volume 87 fL (79-100) Mean Corpuscular Hemoglobin 30 pg (25-35) Mean Corpuscular Hemoglobin Concent 34 g/dL (31-37) Red Cell Distribution Width 16.6 % (11.5-14.5) Platelet Count 96 x10^3/uL (140-400) Neutrophils (%) (Auto) 77 % (31-73) Lymphocytes (%) (Auto) 11 % (24-48) Monocytes (%) (Auto) 10 % (0-9) Eosinophils (%) (Auto) 1 % (0-3) Basophils (%) (Auto) 1 % (0-3) Neutrophils # (Auto) 3.8 x10^3uL (1.8-7.7) Lymphocytes # (Auto) 0.6 x10^3/uL (1.0-4.8) Monocytes # (Auto) 0.5 x10^3/uL (0.0-1.1) Eosinophils # (Auto) 0.1 x10^3/uL (0.0-0.7) Basophils # (Auto) 0.0 x10^3/uL (0.0-0.2) Segmented Neutrophils % 70 % (35-66) Band Neutrophils % 16 % (0-9) Lymphocytes % 7 % (24-48) Monocytes % 7 % (0-10) Platelet Estimate Decreased (ADEQUATE) Anisocytosis Present Sodium Level 141 mmol/L (136-145) Potassium Level 3.9 mmol/L (3.5-5.1) Chloride Level 100 mmol/L (98-107) Carbon Dioxide Level 33 mmol/L (21-32) Anion Gap 8 (6-14) Blood Urea Nitrogen 44 mg/dL (8-26) Creatinine 6.6 mg/dL (0.7-1.3) Estimated GFR (Cockcroft-Gault) 8.7 Glucose Level 108 mg/dL (70-99) Calcium Level 6.8 mg/dL (8.5-10.1) Laboratory Tests Test 09/14/16 13:55 09/15/16 05:40 Random Vancomycin Level 20.1 mcg/mL White Blood Count 4.9 x10^3/uL (4.0-11.0) Red Blood Count 2.92 x10^6/uL (4.30-5.70) Hemoglobin 8.7 g/dL (13.0-17.5) Hematocrit 25.6 % (39.0-53.0) Mean Corpuscular Volume 87 fL (79-100) Mean Corpuscular Hemoglobin 30 pg (25-35) Mean Corpuscular Hemoglobin Concent 34 g/dL (31-37) Red Cell Distribution Width 16.6 % (11.5-14.5) Platelet Count 96 x10^3/uL (140-400) Neutrophils (%) (Auto) 77 % (31-73) Lymphocytes (%) (Auto) 11 % (24-48) Monocytes (%) (Auto) 10 % (0-9) Eosinophils (%) (Auto) 1 % (0-3) Basophils (%) (Auto) 1 % (0-3) Neutrophils # (Auto) 3.8 x10^3uL (1.8-7.7) Lymphocytes # (Auto) 0.6 x10^3/uL (1.0-4.8) Monocytes # (Auto) 0.5 x10^3/uL (0.0-1.1) Eosinophils # (Auto) 0.1 x10^3/uL (0.0-0.7) Basophils # (Auto) 0.0 x10^3/uL (0.0-0.2) Segmented Neutrophils % 70 % (35-66) Band Neutrophils % 16 % (0-9) Lymphocytes % 7 % (24-48) Monocytes % 7 % (0-10) Platelet Estimate Decreased (ADEQUATE) Anisocytosis Present Sodium Level 141 mmol/L (136-145) Potassium Level 3.9 mmol/L (3.5-5.1) Chloride Level 100 mmol/L (98-107) Carbon Dioxide Level 33 mmol/L (21-32) Anion Gap 8 (6-14) Blood Urea Nitrogen 44 mg/dL (8-26) Creatinine 6.6 mg/dL (0.7-1.3) Estimated GFR (Cockcroft-Gault) 8.7 Glucose Level 108 mg/dL (70-99) Calcium Level 6.8 mg/dL (8.5-10.1) Microbiology 09/13/16 Blood Culture - Preliminary, Resulted 09/13/16 Blood Culture Result 1 (JESSICA) - Preliminary, Resulted 09/13/16 Urine Culture - Final, Complete 09/13/16 Urine Culture Result 1 (JESSICA) - Final, Complete 09/13/16 Antimicrobic Susceptibility - Final, Complete 09/14/16 Gram Stain - Final, Complete Medications Current Medications Vancomycin HCl (Vanco Per Pharmacy) 1 each PRN DAILY PRN MC SEE COMMENTS Last administered on 09/14/16 14:43; Start 09/13/16 at 09:00 Piperacillin Sod/ Tazobactam Sod (Zosyn Per Pharmacy) 1 each PRN DAILY PRN MC SEE COMMENTS; Start 09/13/16 at 09:00 Sodium Chloride 500 ml @ 500 mls/hr 1X ONCE IV Last administered on 09/13/16 09:06; Start 09/13/16 at 09:00; Stop 09/13/16 at 09:59; Status DC Acetaminophen (Tylenol) 650 mg 1X ONCE PO Last administered on 09/13/16 09:06 ; Start 09/13/16 at 09:00; Stop 09/13/16 at 09:04; Status DC Piperacillin Sod/ Tazobactam Sod 2.25 gm/Sodium Chloride 50 ml @ 100 mls/hr 1X ONCE IV Last administered on 09/13/16 09:24; Start 09/13/16 at 09:45; Stop 09/13/16 at 10:14; Status DC Ondansetron HCl (Zofran) 4 mg 1X ONCE IV Last administered on 09/13/16 09:05; Start 09/13/16 at 09:15; Stop 09/13/16 at 09:16; Status DC Vancomycin HCl 2 gm/Sodium Chloride 500 ml @ 250 mls/hr 1X ONCE IV Last administered on 09/13/16 09:58; Start 09/13/16 at 10:15; Stop 09/13/16 at 12:14; Status DC Ondansetron HCl (Zofran) 4 mg STK-MED ONCE .ROUTE ; Start 09/13/16 at 09:03; Stop 09/13/16 at 09:04; Status DC Ondansetron HCl (Zofran) 4 mg PRN Q8HRS PRN IV NAUSEA/VOMITING; Start 09/13/16 at 10:00; Stop 09/13/16 at 13:55; Status DC Morphine Sulfate 2 mg PRN Q2HR PRN IV PAIN; Start 09/13/16 at 10:00; Stop at 13:55; Status DC Sodium Chloride 500 ml @ 500 mls/hr 1X ONCE IV Last administered on 09/13/16 10:00; Start 09/13/16 at 10:00; Stop 09/13/16 at 10:59; Status DC Piperacillin Sod/ Tazobactam Sod 2.25 gm/Sodium Chloride 50 ml @ 100 mls/hr Q8HRS IV Last administered on 09/15/16 06:01; Start 09/13/16 at 20:00; Stop 09/15 at 10:36; Status DC Vancomycin HCl 500 mg/Sodium Chloride 100 ml @ 100 mls/hr QTUTHSA IV ; Start at 16:00 Sodium Chloride 1,000 ml @ 1,000 mls/hr 1X ONCE IV Last administered on 12:45; Start 09/13/16 at 12:45; Stop 09/13/16 at 13:44; Status DC Acetaminophen (Tylenol) 650 mg PRN Q6HRS PRN PO FEVER Last administered on 08:08; Start 09/13/16 at 14:00 Ondansetron HCl (Zofran) 4 mg PRN Q6HRS PRN IV NAUSEA/VOMITING; Start 09/13/16 at 14:00 Morphine Sulfate 2 mg PRN Q2HR PRN IV PAIN; Start 09/13/16 at 14:00 Tramadol HCl (Ultram) 50 mg PRN Q6HRS PRN PO PAIN Last administered on 08:07; Start 09/13/16 at 14:00 Hydralazine HCl (Apresoline) 10 mg PRN Q4HRS PRN IVP ELEVATED BP, SEE COMMENTS ; Start 09/13/16 at 14:00 Docusate Sodium (Colace) 100 mg PRN DAILY PRN PO CONSTIPATION; Start 09/13/16 at 14:00 Heparin Sodium (Porcine) (Heparin Sq) 5,000 unit Q8HRS SQ Last administered on 09/15/16 06:07; Start 09/13/16 at 14:00 Amlodipine Besylate (Norvasc) 10 mg DAILY PO ; Start 09/14/16 at 09:00 Hydralazine HCl (Apresoline) 50 mg TID PO Last administered on 09/14/16 20:39; Start 09/14/16 at 09:00 Lidocaine/ Epinephrine (Xylocaine 1%-Epi 1:100,000) 20 ml STK-MED ONCE .ROUTE ; Start 09/14/16 at 09:54; Stop 09/14/16 at 09:55; Status DC Lidocaine/Sodium Bicarbonate (Buffered Lidocaine 1%) 3 ml 1X ONCE IJ ; Start at 10:15; Stop 09/14/16 at 10:16; Status DC Lidocaine/ Epinephrine (Xylocaine 1%-Epi 1:100,000) 4 ml 1X ONCE INJ Last administered on 7/5/17at 10:22; Start 09/14/16 at 10:30; Stop 09/14/16 at 10:33; Status DC Vancomycin HCl 500 mg/Sodium Chloride 100 ml @ 100 mls/hr 1X ONCE IV Last administered on 09/14/16 18:22; Start 09/14/16 at 16:00; Stop 09/14/16 at 16:59; Status DC Info (PHARMACY MONITORING -- do not chart) 1 each PRN DAILY PRN MC SEE COMMENTS ; Start 09/14/16 at 17:15 Info (PHARMACY MONITORING -- do not chart) 1 each PRN DAILY PRN MC SEE COMMENTS ; Start 09/14/16 at 17:15 Prednisone (Prednisone) 10 mg 1X ONCE PO Last administered on 09/15/16 11:52; Start 09/15/16 at 11:30; Stop 09/15/16 at 11:31; Status DC Darbepoetin Juan (Aranesp) 60 mcg WEEKLYHS SQ ; Start 09/15/16 at 21:00 Magnesium Sulfate/ Dextrose 50 ml @ 25 mls/hr PRN DAILY PRN IV for Mag < 1.7 on am labs; Start 09/15/16 at 11:00 Calcium Carbonate/ Glycine (Oscal) 1,000 mg TID PO ; Start 09/15/16 at 14:00 Active Scripts Active Reported Amlodipine Besylate 10 Mg Tablet 10 Mg PO DAILY Hydralazine Hcl 50 Mg Tablet 1 Tab PO TID Vitals/I & O Vital Sign - Last 24 Hours 09/14/16 09/14/16 09/14/16 09/14/16 14:00 19:00 20:00 20:39 Temp 101.5 101.5 Pulse 90 107 107 Resp 18 B/P (MAP) 121/66 112/65 (81) 112/65 Pulse Ox 90 O2 Delivery Room Air Room Air 09/14/16 09/15/16 09/15/16 09/15/16 23:00 03:00 07:00 08:00 Temp 99.5 98.2 99.8 99.5 98.2 99.8 Pulse 89 83 91 Resp 18 20 18 B/P (MAP) 108/65 (79) 123/65 (84) 129/75 (93) Pulse Ox 94 91 90 O2 Delivery Room Air Room Air Nasal Cannula Room Air O2 Flow Rate 2.0 09/15/16 09/15/16 09/15/16 08:07 09:15 10:55 Temp 98.7 98.7 Pulse 87 Resp 18 B/P (MAP) 123/72 (89) Pulse Ox 94 O2 Delivery Room Air Room Air Room Air Intake and Output 09/14/16 09/14/16 09/15/16 15:00 23:00 07:00 Intake Total 250 ml 500 ml 1600 ml Balance 250 ml 500 ml 1600 ml OMID TOBAR MD Sep 15, 2016 12:03
[2016-09-15] MEDS: VANCOMYCIN PER PHARMACY MC PRN (12:21)
[2016-09-15] MEDS: CALCIUM CARBONATE 500 MG TABLET PO SCH ×2 (14:00→21:26)
[2016-09-15] MEDS ORDERED: DIALYSIS PATIENT. MC PRN (14:00)
[2016-09-15] MEDS ORDERED: IV NORMAL SALINE 1000ML BAG 1,000 ML IV PRN (14:00)
[2016-09-15] MEDS ORDERED: VANCOMYCIN 500 MG in IV NORMAL SALINE 100ML 100 ML IV SCH (16:00)
[2016-09-15 19:00] VITALS: BP 134/77
[2016-09-15] MEDS ORDERED: DARBEPOETIN ALFA 60 MCG/0.3 ML DISP.SYRIN. SQ SCH (21:00)
[2016-09-15 23:00] VITALS: BP 127/69
[2016-09-16 03:00] VITALS: BP 125/68
[2016-09-16 05:54] LABS: ALBUMIN 2.6 g/dL (3.4-5.0); CALCIUM 7.5 mg/dL (8.5-10.1); CREATININE 5.1 mg/dL (0.7-1.3); GFR 11.8; PHOSPHORUS 3.7 mg/dL (2.6-4.7); POTASSIUM 3.8 mmol/L (3.5-5.1)
[2016-09-16 06:01] LABS: MAGNESIUM 1.8 mg/dL (1.8-2.4)
[2016-09-16] MEDS: HEPARIN PF for SUB-Q USE 5,000 UNIT/0.5 ML VIAL. SQ SCH ×3 (06:03→21:00)
[2016-09-16 07:00] VITALS: BP 141/79
[2016-09-16] MEDS: amLODIPine BESYLATE 10 MG TABLET PO SCH (08:17)
[2016-09-16] MEDS: CALCIUM CARBONATE 500 MG TABLET PO SCH ×3 (08:17→20:52)
[2016-09-16] MEDS ORDERED: IV NORMAL SALINE 1000ML BAG 1,000 ML IV PRN (08:20)
[2016-09-16] MEDS ORDERED: DIALYSIS PATIENT. MC PRN (08:30)
[2016-09-16] MEDS ORDERED: ALBUMIN HUMAN 25% 200 ML IV PRN (08:30)
--- NOTE | 2016-09-16 09:13 | PDOC ---
Infectious Disease Note Subjective Subjective feeling good ROS ROS GEN: Denies fevers, chills, sweats HEENT: Denies blurred vision, sore throat CV: Denies chest pain RESP: Denies shortness of air, cough GI: Denies n/v/d NEURO: Denies confusion, dizziness MSK: Denies weakness, joint pain/swelling Vital Sign Vital Signs Vital Signs Date Time Temp Pulse Resp B/P (MAP) Pulse Ox O2 Delivery O2 Flow Rate FiO2 09/16/16 08:17 81 141/79 09/16/16 07:50 Room Air 09/16/16 07:00 97.9 16 95 97.9 09/15/16 20:00 2.0 Physical Exam PHYSICAL EXAM GENERAL: NAD, Alert HEENT: PERRL, OC/OP NECK: Supple, no JVD, no LN LUNGS: Clear HEART: S1S2, no gallop, no murmur ABD: Soft, NT, no organomegaly, no rebound EXT: No edema, no cyanosis FACTORY EXPERT: Alert, oriented x 3, no focal neurologic deficit SKIN: No rash IV: ok Labs Lab Laboratory Tests Test 09/16/16 04:20 Hemoglobin 8.3 g/dL (13.0-17.5) Sodium Level 138 mmol/L (136-145) Potassium Level 3.8 mmol/L (3.5-5.1) Chloride Level 100 mmol/L (98-107) Carbon Dioxide Level 27 mmol/L (21-32) Anion Gap 11 (6-14) Blood Urea Nitrogen 27 mg/dL (8-26) Creatinine 5.1 mg/dL (0.7-1.3) Estimated GFR (Cockcroft-Gault) 11.8 Glucose Level 126 mg/dL (70-99) Calcium Level 7.5 mg/dL (8.5-10.1) Phosphorus Level 3.7 mg/dL (2.6-4.7) Magnesium Level 1.8 mg/dL (1.8-2.4) Albumin 2.6 g/dL (3.4-5.0) Micro BC MSSA Cath + MSSA urine + MSSA Objective Assessment Fever and chills BC + with staph,, MSSA ESRD HTN Plan Plan of Care change vanc to cefazolin LOS d/w FAMILIA Cosby MD Sep 16, 2016 09:13
--- NOTE | 2016-09-16 10:23 | PDOC ---
SUBJECTIVE ROS ESRD Doing and feeling well - asking about D/c CVS: no Orthopnea, no CP RESP: no SOB, no CHAUDHRY GI: no Nausea, no Vomiting : no Dysuria, no Urgency OBJECTIVE Vital Signs Vital Signs Date Time Temp Pulse Resp B/P (MAP) Pulse Ox O2 Delivery O2 Flow Rate FiO2 09/16/16 08:17 81 141/79 09/16/16 07:50 Room Air 09/16/16 07:00 97.9 16 95 97.9 09/15/16 20:00 2.0 I & 0 Intake and Output 09/16/16 07:00 Intake Total 1010 ml Output Total 0 ml Balance 1010 ml Intake Oral 1010 ml Output Urine Total 0 ml # Voids 2 PHYSICAL EXAM Physical Exam GEN: Awake, Oriented x 3, In no distress EYES: Vision Unchanged, Conjunctiva Normal EN: No EN Drainage, Mucous Membranes moist NECK: no JVD, no JVP, Supple, no Thyromegaly CVS: S1S2, + Murmur, No Gallop, No Rub,no Edema RESP: no Rales, no Rhonchi,no Acc. Muscle Use GI: BS + ve, NO Bruit, Non Tender, Non Distended : no CVA tenderness, no Suprapubic Tenderness DIAGNOSIS/ASSESSMENT Assessment & Plan ESRD: Current fluid and E-lyte status does not necessitate emergent need for dialysis. Will re-evaluate for dialysis in the am and continue on TTSat schedule. ANEMIA; Aranap as ordered, Transfuse with next HD as needed HTN: Current BP meds as reviewed. See orders for changes. BONE & MINERAL: follow Phos levels. Alter binder regimen as needed Low trang - Improving off of Sensipar Discussed Plan of Care with pt at bedside and Dr Darline Kerr COMMENT/RELEVANT DATA Meds Current Medications Medications (Trade) Dose Ordered Sig/Sajan Start Time Stop Time Status Last Admin Dose Admin Acetaminophen (Tylenol) 650 mg PRN Q6HRS PRN 09/13/16 14:00 09/15/16 08:08 650 MG Albumin Human 200 ml @ 200 mls/hr 1X PRN PRN 09/16/16 08:30 09/16/16 14:29 Amlodipine Besylate (Norvasc) 10 mg DAILY 09/14/16 09:00 09/16/16 08:17 10 MG Calcium Carbonate/ Glycine (Oscal) 1,000 mg TID 09/15/16 14:00 09/16/16 08:17 1,000 MG Cefazolin Sodium 1 gm/Sodium Chloride 50 ml @ 100 mls/hr DAILY16 09/16/16 16:00 Darbepoetin Juan (Aranesp) 60 mcg WEEKLYHS 09/15/16 21:00 09/15/16 21:26 60 MCG Docusate Sodium (Colace) 100 mg PRN DAILY PRN 09/13/16 14:00 Heparin Sodium (Porcine) (Heparin Sq) 5,000 unit Q8HRS 09/13/16 14:00 09/16/16 06:03 5,000 UNIT Hydralazine HCl (Apresoline) 50 mg TID 09/14/16 09:00 09/16/16 08:17 50 MG Info (PHARMACY MONITORING -- do not chart) 1 each PRN DAILY PRN 09/16/16 08:30 UNV Lidocaine/ Epinephrine (Xylocaine 1%-Epi 1:100,000) 4 ml 1X ONCE 09/14/16 10:30 09/14/16 10:33 DC 09/14/16 10:22 4 ML Lidocaine/Sodium Bicarbonate (Buffered Lidocaine 1%) 3 ml 1X ONCE 09/14/16 10:15 09/14/16 10:16 DC Magnesium Sulfate/ Dextrose 50 ml @ 25 mls/hr PRN DAILY PRN 09/15/16 11:00 Morphine Sulfate 2 mg PRN Q2HR PRN 09/13/16 14:00 Ondansetron HCl (Zofran) 4 mg PRN Q6HRS PRN 09/13/16 14:00 Piperacillin Sod/ Tazobactam Sod (Zosyn Per Pharmacy) 1 each PRN DAILY PRN 09/13/16 09:00 09/15/16 12:15 DC Piperacillin Sod/ Tazobactam Sod 2.25 gm/Sodium Chloride 50 ml @ 100 mls/hr Q8HRS 09/13/16 20:00 09/15/16 10:36 DC 09/15/16 06:01 100 MLS/HR Prednisone (Prednisone) 10 mg 1X ONCE 09/15/16 11:30 09/15/16 11:31 DC 09/15/16 11:52 10 MG Sodium Chloride 1,000 ml @ 1,000 mls/hr Q1H PRN 09/16/16 08:20 09/16/16 14:19 Tramadol HCl (Ultram) 50 mg PRN Q6HRS PRN 09/13/16 14:00 09/15/16 08:07 50 MG Vancomycin HCl (Vanco Per Pharmacy) 1 each PRN DAILY PRN 09/13/16 09:00 09/16/16 10:07 DC 09/15/16 12:21 1 EACH Vancomycin HCl 500 mg/Sodium Chloride 100 ml @ 100 mls/hr 1X ONCE 09/14/16 16:00 09/14/16 16:59 DC 09/14/16 18:22 100 MLS/HR Vancomycin HCl 2 gm/Sodium Chloride 500 ml @ 250 mls/hr 1X ONCE 09/13/16 10:15 09/13/16 12:14 DC 09/13/16 09:58 250 MLS/HR Lab Laboratory Tests Test 09/16/16 04:20 Hemoglobin 8.3 g/dL (13.0-17.5) Sodium Level 138 mmol/L (136-145) Potassium Level 3.8 mmol/L (3.5-5.1) Chloride Level 100 mmol/L (98-107) Carbon Dioxide Level 27 mmol/L (21-32) Anion Gap 11 (6-14) Blood Urea Nitrogen 27 mg/dL (8-26) Creatinine 5.1 mg/dL (0.7-1.3) Estimated GFR (Cockcroft-Gault) 11.8 Glucose Level 126 mg/dL (70-99) Calcium Level 7.5 mg/dL (8.5-10.1) Phosphorus Level 3.7 mg/dL (2.6-4.7) Magnesium Level 1.8 mg/dL (1.8-2.4) Albumin 2.6 g/dL (3.4-5.0) RUSLAN KERR MD Sep 16, 2016 10:23
[2016-09-16 10:32] VITALS: BP 138/82
[2016-09-16] MEDS ORDERED: LIDOCAINE 2% TOPICAL JELLY 30GM TUBE. TP ONE (11:46)
[2016-09-16] MEDS ORDERED: LIDOCAINE 2% VISCOUS 15 ML SOLUTION. ONE (11:46)
[2016-09-16] MEDS ORDERED: BENZOCAINE ONE 20% MUCOSAL SPRAY. (11:46)
--- NOTE | 2016-09-16 12:39 | PDOC ---
PROGRESS NOTES Chief Complaint Chief Complaint 1. sepsis, with GPC bacteremia (Staph aureaus) from infected HD cath (removed ) 2. ESRD on HD TTS 3. htn, controlled 4. bandemia 5. metabolic acidosis 6. lactate acidosis, POA, normal now on day 2 7. anemia of CKD History of Present Illness History of Present Illness no fevers, no leukocytosis CAth tip staph aureus BC staph aureus Urine cx staph aureus CALLIE: Dw ID LOS, BC IV cefazolin Arranging SW for OP antibiotics TEmp HD cath OUT Getting HD via left arm fistula HD per renal Stays over weekend til SW arranges OP IV infusion antibiotic Vitals Vitals Vital Signs Date Time Temp Pulse Resp B/P (MAP) Pulse Ox O2 Delivery O2 Flow Rate FiO2 09/16/16 10:32 97.9 84 16 138/82 (100) 95 Room Air 97.9 09/15/16 20:00 2.0 Physical Exam General: Alert, Oriented X3, Cooperative, No acute distress Heart: Regular rate, Normal S1, Normal S2 Lungs: Clear, Wheezing Abdomen: Normal bowel sounds, Soft, No tenderness, No hepatosplenomegaly Extremities: No clubbing, No cyanosis, No edema, Normal pulses Skin: No rashes, No breakdown, No significant lesion Labs LABS Laboratory Tests Test 09/16/16 04:20 Hemoglobin 8.3 g/dL (13.0-17.5) Sodium Level 138 mmol/L (136-145) Potassium Level 3.8 mmol/L (3.5-5.1) Chloride Level 100 mmol/L (98-107) Carbon Dioxide Level 27 mmol/L (21-32) Anion Gap 11 (6-14) Blood Urea Nitrogen 27 mg/dL (8-26) Creatinine 5.1 mg/dL (0.7-1.3) Estimated GFR (Cockcroft-Gault) 11.8 Glucose Level 126 mg/dL (70-99) Calcium Level 7.5 mg/dL (8.5-10.1) Phosphorus Level 3.7 mg/dL (2.6-4.7) Magnesium Level 1.8 mg/dL (1.8-2.4) Albumin 2.6 g/dL (3.4-5.0) Review of Systems Review of Systems denies 14 pt system reviewed Assessment and Plan Assessmemt and Plan Problems Medical Problems: (1) End stage renal disease Status: Acute (2) Fever Status: Acute (3) Tachycardia Status: Acute Problems: Comment Review of Relevant I have reviewed the following items veena (where applicable) has been applied. Labs Laboratory Tests Test 09/14/16 13:55 09/15/16 05:40 09/16/16 04:20 Random Vancomycin Level 20.1 mcg/mL White Blood Count 4.9 x10^3/uL (4.0-11.0) Red Blood Count 2.92 x10^6/uL (4.30-5.70) Hemoglobin 8.7 g/dL (13.0-17.5) 8.3 g/dL (13.0-17.5) Hematocrit 25.6 % (39.0-53.0) Mean Corpuscular Volume 87 fL (79-100) Mean Corpuscular Hemoglobin 30 pg (25-35) Mean Corpuscular Hemoglobin Concent 34 g/dL (31-37) Red Cell Distribution Width 16.6 % (11.5-14.5) Platelet Count 96 x10^3/uL (140-400) Neutrophils (%) (Auto) 77 % (31-73) Lymphocytes (%) (Auto) 11 % (24-48) Monocytes (%) (Auto) 10 % (0-9) Eosinophils (%) (Auto) 1 % (0-3) Basophils (%) (Auto) 1 % (0-3) Neutrophils # (Auto) 3.8 x10^3uL (1.8-7.7) Lymphocytes # (Auto) 0.6 x10^3/uL (1.0-4.8) Monocytes # (Auto) 0.5 x10^3/uL (0.0-1.1) Eosinophils # (Auto) 0.1 x10^3/uL (0.0-0.7) Basophils # (Auto) 0.0 x10^3/uL (0.0-0.2) Segmented Neutrophils % 70 % (35-66) Band Neutrophils % 16 % (0-9) Lymphocytes % 7 % (24-48) Monocytes % 7 % (0-10) Platelet Estimate Decreased (ADEQUATE) Anisocytosis Present Sodium Level 141 mmol/L (136-145) 138 mmol/L (136-145) Potassium Level 3.9 mmol/L (3.5-5.1) 3.8 mmol/L (3.5-5.1) Chloride Level 100 mmol/L (98-107) 100 mmol/L (98-107) Carbon Dioxide Level 33 mmol/L (21-32) 27 mmol/L (21-32) Anion Gap 8 (6-14) 11 (6-14) Blood Urea Nitrogen 44 mg/dL (8-26) 27 mg/dL (8-26) Creatinine 6.6 mg/dL (0.7-1.3) 5.1 mg/dL (0.7-1.3) Estimated GFR (Cockcroft-Gault) 8.7 11.8 Glucose Level 108 mg/dL (70-99) 126 mg/dL (70-99) Calcium Level 6.8 mg/dL (8.5-10.1) 7.5 mg/dL (8.5-10.1) Phosphorus Level 3.7 mg/dL (2.6-4.7) Magnesium Level 1.8 mg/dL (1.8-2.4) Albumin 2.6 g/dL (3.4-5.0) Laboratory Tests Test 09/16/16 04:20 Hemoglobin 8.3 g/dL (13.0-17.5) Sodium Level 138 mmol/L (136-145) Potassium Level 3.8 mmol/L (3.5-5.1) Chloride Level 100 mmol/L (98-107) Carbon Dioxide Level 27 mmol/L (21-32) Anion Gap 11 (6-14) Blood Urea Nitrogen 27 mg/dL (8-26) Creatinine 5.1 mg/dL (0.7-1.3) Estimated GFR (Cockcroft-Gault) 11.8 Glucose Level 126 mg/dL (70-99) Calcium Level 7.5 mg/dL (8.5-10.1) Phosphorus Level 3.7 mg/dL (2.6-4.7) Magnesium Level 1.8 mg/dL (1.8-2.4) Albumin 2.6 g/dL (3.4-5.0) Microbiology 09/13/16 Blood Culture - Preliminary, Resulted 09/13/16 Blood Culture Result 1 (JESSICA) - Preliminary, Resulted 09/13/16 Urine Culture - Final, Complete 09/13/16 Urine Culture Result 1 (JESSICA) - Final, Complete 09/13/16 Antimicrobic Susceptibility - Final, Complete 09/14/16 Gram Stain - Final, Complete Medications Current Medications Vancomycin HCl (Vanco Per Pharmacy) 1 each PRN DAILY PRN MC SEE COMMENTS Last administered on 09/15/16 12:21; Start 09/13/16 at 09:00; Stop 09/16/16 at 10:07; Status DC Piperacillin Sod/ Tazobactam Sod (Zosyn Per Pharmacy) 1 each PRN DAILY PRN MC SEE COMMENTS; Start 09/13/16 at 09:00; Stop 09/15/16 at 12:15; Status DC Sodium Chloride 500 ml @ 500 mls/hr 1X ONCE IV Last administered on 09/13/16 09:06; Start 09/13/16 at 09:00; Stop 09/13/16 at 09:59; Status DC Acetaminophen (Tylenol) 650 mg 1X ONCE PO Last administered on 09/13/16 09:06 ; Start 09/13/16 at 09:00; Stop 09/13/16 at 09:04; Status DC Piperacillin Sod/ Tazobactam Sod 2.25 gm/Sodium Chloride 50 ml @ 100 mls/hr 1X ONCE IV Last administered on 09/13/16 09:24; Start 09/13/16 at 09:45; Stop 09/13/16 at 10:14; Status DC Ondansetron HCl (Zofran) 4 mg 1X ONCE IV Last administered on 09/13/16 09:05; Start 09/13/16 at 09:15; Stop 09/13/16 at 09:16; Status DC Vancomycin HCl 2 gm/Sodium Chloride 500 ml @ 250 mls/hr 1X ONCE IV Last administered on 09/13/16 09:58; Start 09/13/16 at 10:15; Stop 09/13/16 at 12:14; Status DC Ondansetron HCl (Zofran) 4 mg STK-MED ONCE .ROUTE ; Start 09/13/16 at 09:03; Stop 09/13/16 at 09:04; Status DC Ondansetron HCl (Zofran) 4 mg PRN Q8HRS PRN IV NAUSEA/VOMITING; Start 09/13/16 at 10:00; Stop 09/13/16 at 13:55; Status DC Morphine Sulfate 2 mg PRN Q2HR PRN IV PAIN; Start 09/13/16 at 10:00; Stop at 13:55; Status DC Sodium Chloride 500 ml @ 500 mls/hr 1X ONCE IV Last administered on 09/13/16 10:00; Start 09/13/16 at 10:00; Stop 09/13/16 at 10:59; Status DC Piperacillin Sod/ Tazobactam Sod 2.25 gm/Sodium Chloride 50 ml @ 100 mls/hr Q8HRS IV Last administered on 09/15/16 06:01; Start 09/13/16 at 20:00; Stop 09/15 at 10:36; Status DC Vancomycin HCl 500 mg/Sodium Chloride 100 ml @ 100 mls/hr QTUTHSA IV Last administered on 09/15/16 17:38; Start 09/15/16 at 16:00; Stop 09/16/16 at 10:07; Status DC Sodium Chloride 1,000 ml @ 1,000 mls/hr 1X ONCE IV Last administered on 12:45; Start 09/13/16 at 12:45; Stop 09/13/16 at 13:44; Status DC Acetaminophen (Tylenol) 650 mg PRN Q6HRS PRN PO FEVER Last administered on 08:08; Start 09/13/16 at 14:00 Ondansetron HCl (Zofran) 4 mg PRN Q6HRS PRN IV NAUSEA/VOMITING; Start 09/13/16 at 14:00 Morphine Sulfate 2 mg PRN Q2HR PRN IV PAIN; Start 09/13/16 at 14:00 Tramadol HCl (Ultram) 50 mg PRN Q6HRS PRN PO PAIN Last administered on 08:07; Start 09/13/16 at 14:00 Hydralazine HCl (Apresoline) 10 mg PRN Q4HRS PRN IVP ELEVATED BP, SEE COMMENTS ; Start 09/13/16 at 14:00 Docusate Sodium (Colace) 100 mg PRN DAILY PRN PO CONSTIPATION; Start 09/13/16 at 14:00 Heparin Sodium (Porcine) (Heparin Sq) 5,000 unit Q8HRS SQ Last administered on 09/16/16 06:03; Start 09/13/16 at 14:00 Amlodipine Besylate (Norvasc) 10 mg DAILY PO Last administered on 09/16/16 08: 17; Start 09/14/16 at 09:00 Hydralazine HCl (Apresoline) 50 mg TID PO Last administered on 09/16/16 08:17; Start 09/14/16 at 09:00 Lidocaine/ Epinephrine (Xylocaine 1%-Epi 1:100,000) 20 ml STK-MED ONCE .ROUTE ; Start 09/14/16 at 09:54; Stop 09/14/16 at 09:55; Status DC Lidocaine/Sodium Bicarbonate (Buffered Lidocaine 1%) 3 ml 1X ONCE IJ ; Start at 10:15; Stop 09/14/16 at 10:16; Status DC Lidocaine/ Epinephrine (Xylocaine 1%-Epi 1:100,000) 4 ml 1X ONCE INJ Last administered on 09/14/16 10:22; Start 09/14/16 at 10:30; Stop 09/14/16 at 10:33; Status DC Vancomycin HCl 500 mg/Sodium Chloride 100 ml @ 100 mls/hr 1X ONCE IV Last administered on 09/14/16 18:22; Start 09/14/16 at 16:00; Stop 09/14/16 at 16:59; Status DC Info (PHARMACY MONITORING -- do not chart) 1 each PRN DAILY PRN MC SEE COMMENTS ; Start 09/14/16 at 17:15; Status Cancel Info (PHARMACY MONITORING -- do not chart) 1 each PRN DAILY PRN MC SEE COMMENTS ; Start 09/14/16 at 17:15 Prednisone (Prednisone) 10 mg 1X ONCE PO Last administered on 09/15/16 11:52; Start 09/15/16 at 11:30; Stop 09/15/16 at 11:31; Status DC Darbepoetin Juan (Aranesp) 60 mcg [id number] SQ Last administered on 09/15/16 21: 26; Start 09/15/16 at 21:00 Magnesium Sulfate/ Dextrose 50 ml @ 25 mls/hr PRN DAILY PRN IV for Mag < 1.7 on am labs; Start 09/15/16 at 11:00 Calcium Carbonate/ Glycine (Oscal) 1,000 mg TID PO Last administered on t 08:17; Start 09/15/16 at 14:00 Sodium Chloride 1,000 ml @ 1,000 mls/hr Q1H PRN IV hypotension; Start 09/15/16 at 14:00; Stop 09/15/16 at 19:59; Status DC Info (PHARMACY MONITORING -- do not chart) 1 each PRN DAILY PRN MC SEE COMMENTS ; Start 09/15/16 at 14:00; Status UNV Sodium Chloride 1,000 ml @ 1,000 mls/hr Q1H PRN IV hypotension; Start 09/16/16 at 08:20; Stop 09/16/16 at 14:19 Albumin Human 200 ml @ 200 mls/hr 1X PRN PRN IV Hypotension; Start 09/16/16 at 08:30; Stop 09/16/16 at 14:29 Info (PHARMACY MONITORING -- do not chart) 1 each PRN DAILY PRN MC SEE COMMENTS ; Start 09/16/16 at 08:30; Status UNV Cefazolin Sodium 1 gm/Sodium Chloride 50 ml @ 100 mls/hr DAILY16 IV ; Start 09/16/16 at 16:00 Lidocaine HCl (Viscous Lidocaine) 15 ml STK-MED ONCE .ROUTE ; Start 09/16/16 at 11:46; Stop 09/16/16 at 11:47; Status DC Benzocaine (Hurricaine One) 1 spray STK-MED ONCE .ROUTE ; Start 09/16/16 at 11:46 ; Stop 09/16/16 at 11:47; Status DC Lidocaine HCl (Xylocaine 2% Topical 30gm Tube) 30 pepe STK-MED ONCE TP ; Start at 11:46; Stop 09/16/16 at 11:47; Status DC Active Scripts Active Reported Amlodipine Besylate 10 Mg Tablet 10 Mg PO DAILY Hydralazine Hcl 50 Mg Tablet 1 Tab PO TID Vitals/I & O Vital Sign - Last 24 Hours 09/15/16 09/15/16 09/15/16 09/15/16 19:00 20:00 21:26 23:00 Temp 98.2 97.7 98.2 97.7 Pulse 82 82 79 Resp 18 18 B/P (MAP) 134/77 (96) 134/77 127/69 (88) Pulse Ox 95 97 O2 Delivery Room Air Room Air Room Air O2 Flow Rate 2.0 09/16/16 09/16/16 09/16/16 09/16/16 03:00 07:00 07:50 08:17 Temp 98.2 97.9 98.2 97.9 Pulse 84 81 81 Resp 18 16 B/P (MAP) 125/68 (87) 141/79 (99) 141/79 Pulse Ox 95 95 O2 Delivery Room Air Room Air Room Air 09/16/16 09/16/16 08:17 10:32 Temp 97.9 97.9 Pulse 81 84 Resp 16 B/P (MAP) 141/79 138/82 (100) Pulse Ox 95 O2 Delivery Room Air Intake and Output 09/15/16 09/15/16 09/16/16 14:59 22:59 06:59 Intake Total 520 ml 490 ml 0 ml Output Total 0 ml Balance 520 ml 490 ml 0 ml OMID TOBAR MD Sep 16, 2016 12:39
[2016-09-16] MEDS ORDERED: IV RINGERS,LACTATED 1000ML 1,000 ML IV SCH (13:02)
[2016-09-16] MEDS ORDERED: LIDOCAINE 1% 1 ML SYRINGE. ID PRN (13:15)
[2016-09-16] MEDS ORDERED: MORPHINE SULFATE 2 MG/ML DISP.SYRIN. IV PRN (13:15)
[2016-09-16] MEDS ORDERED: PROCHLORPERAZINE 10 MG/2 ML VIAL. IV PRN (13:15)
[2016-09-16] MEDS ORDERED: HYDROmorphone 2 MG/ML VIAL IV PRN (13:15)
[2016-09-16] MEDS ORDERED: ONDANSETRON PF 4 MG/2 ML VIAL. IV PRN (13:15)
[2016-09-16] MEDS ORDERED: fentaNYL PF VIAL 100 MCG/2 ML VIAL IV PRN ×2 (13:15)
[2016-09-16] MEDS ORDERED: 0.9 % SODIUM CHLORIDE 10 ML DISP.SYRIN. IV PRN (13:45)
[2016-09-16] MEDS ORDERED: LIDOCAINE 2% TOPICAL JELLY 5GM TUBE. TP ONE (13:45)
[2016-09-16] MEDS ORDERED: BENZOCAINE ONE 20% MUCOSAL SPRAY. MM (13:45)
[2016-09-16] MEDS ORDERED: LIDOCAINE 2% VISCOUS 15 ML SOLUTION. MM ONE (13:45)
[2016-09-16 15:00] VITALS: BP 138/70
[2016-09-16 19:00] VITALS: BP 141/76
[2016-09-16 23:00] VITALS: BP 148/81
[2016-09-17] MEDS: HEPARIN PF for SUB-Q USE 5,000 UNIT/0.5 ML VIAL. SQ SCH ×3 (06:26→20:40)
[2016-09-17] MEDS ORDERED: LIDOCAINE 1% PF 2 ML VIAL. ONE ×2 (06:48→07:00)
[2016-09-17] MEDS ORDERED: IV NORMAL SALINE 1000ML BAG 1,000 ML IV PRN ×2 (07:00)
[2016-09-17 07:33] LABS: ALBUMIN 2.6 g/dL (3.4-5.0); CALCIUM 7.8 mg/dL (8.5-10.1); CREATININE 7.1 mg/dL (0.7-1.3); POTASSIUM 3.9 mmol/L (3.5-5.1)
[2016-09-17] MEDS ORDERED: DIALYSIS PATIENT. MC PRN (08:15)
--- NOTE | 2016-09-17 08:28 | PDOC ---
Infectious Disease Note Subjective Subjective feeling good ROS ROS GEN: Denies fevers, chills, sweats HEENT: Denies blurred vision, sore throat CV: Denies chest pain RESP: Denies shortness of air, cough GI: Denies n/v/d NEURO: Denies confusion, dizziness MSK: Denies weakness, joint pain/swelling Vital Sign Vital Signs Vital Signs Date Time Temp Pulse Resp B/P (MAP) Pulse Ox O2 Delivery O2 Flow Rate FiO2 09/16/16 23:00 97.8 90 17 148/81 (103) 96 Room Air 97.8 Physical Exam PHYSICAL EXAM GENERAL: NAD, Alert HEENT: PERRL, OC/OP NECK: Supple, no JVD, no LN LUNGS: Clear HEART: S1S2, no gallop, no murmur ABD: Soft, NT, no organomegaly, no rebound EXT: No edema, no cyanosis [employer] MACHINE: Alert, oriented x 3, no focal neurologic deficit SKIN: No rash IV: ok Labs Lab Laboratory Tests Test 09/17/16 06:50 Sodium Level 140 mmol/L (136-145) Potassium Level 3.9 mmol/L (3.5-5.1) Chloride Level 102 mmol/L (98-107) Carbon Dioxide Level 27 mmol/L (21-32) Anion Gap 11 (6-14) Blood Urea Nitrogen 42 mg/dL (8-26) Creatinine 7.1 mg/dL (0.7-1.3) Estimated GFR (Cockcroft-Gault) 8.0 Glucose Level 104 mg/dL (70-99) Calcium Level 7.8 mg/dL (8.5-10.1) Phosphorus Level 3.0 mg/dL (2.6-4.7) Magnesium Level 1.8 mg/dL (1.8-2.4) Albumin 2.6 g/dL (3.4-5.0) Micro BC MSSA Cath + MSSA urine + MSSA Objective Assessment Fever and chills BC + with staph,, MSSA ESRD HTN Plan Plan of Care cefazolin LOS pending FAMILIA KERR MD Sep 17, 2016 08:28
--- NOTE | 2016-09-17 10:47 | PDOC ---
PROGRESS NOTES Chief Complaint Chief Complaint 1. Sepsis, with GPC bacteremia (Staph aureaus) from infected HD cath (removed ) 2. ESRD on HD TTS 3. htn, controlled 4. bandemia 5. metabolic acidosis 6. lactate acidosis, POA, normal now on day 2 7. anemia of CKD Plan #1 continue current antibiotics, #2 LOS pending, no labs have added but today, infectious disease note reviewed, #3 Social work to arrange for a outpatient antibiotics as per infectious disease recommendations. History of Present Illness History of Present Illness no fevers, no leukocytosis CAth tip staph aureus BC staph aureus Urine cx staph aureus CALLIE: Dw ID LOS, BC IV cefazolin Arranging SW for OP antibiotics TEmp HD cath OUT Getting HD via left arm fistula HD per renal Stays over weekend til SW arranges OP IV infusion antibiotic Vitals Vitals Vital Signs Date Time Temp Pulse Resp B/P (MAP) Pulse Ox O2 Delivery O2 Flow Rate FiO2 09/16/16 23:00 97.8 90 17 148/81 (103) 96 Room Air 97.8 Physical Exam General: Alert, Oriented X3, Cooperative, No acute distress Heart: Regular rate, Normal S1, Normal S2 Lungs: Clear, Wheezing Abdomen: Normal bowel sounds, Soft, No tenderness, No hepatosplenomegaly Extremities: No clubbing, No cyanosis, No edema, Normal pulses Skin: No rashes, No breakdown, No significant lesion Labs LABS Laboratory Tests Test 09/17/16 06:50 Sodium Level 140 mmol/L (136-145) Potassium Level 3.9 mmol/L (3.5-5.1) Chloride Level 102 mmol/L (98-107) Carbon Dioxide Level 27 mmol/L (21-32) Anion Gap 11 (6-14) Blood Urea Nitrogen 42 mg/dL (8-26) Creatinine 7.1 mg/dL (0.7-1.3) Estimated GFR (Cockcroft-Gault) 8.0 Glucose Level 104 mg/dL (70-99) Calcium Level 7.8 mg/dL (8.5-10.1) Phosphorus Level 3.0 mg/dL (2.6-4.7) Magnesium Level 1.8 mg/dL (1.8-2.4) Albumin 2.6 g/dL (3.4-5.0) Assessment and Plan Assessmemt and Plan Problems Medical Problems: (1) End stage renal disease Status: Acute (2) Fever Status: Acute (3) Tachycardia Status: Acute Problems: Comment Review of Relevant I have reviewed the following items veena (where applicable) has been applied. Labs Laboratory Tests Test 09/16/16 04:20 09/17/16 06:50 Hemoglobin 8.3 g/dL (13.0-17.5) Sodium Level 138 mmol/L (136-145) 140 mmol/L (136-145) Potassium Level 3.8 mmol/L (3.5-5.1) 3.9 mmol/L (3.5-5.1) Chloride Level 100 mmol/L (98-107) 102 mmol/L (98-107) Carbon Dioxide Level 27 mmol/L (21-32) 27 mmol/L (21-32) Anion Gap 11 (6-14) 11 (6-14) Blood Urea Nitrogen 27 mg/dL (8-26) 42 mg/dL (8-26) Creatinine 5.1 mg/dL (0.7-1.3) 7.1 mg/dL (0.7-1.3) Estimated GFR (Cockcroft-Gault) 11.8 8.0 Glucose Level 126 mg/dL (70-99) 104 mg/dL (70-99) Calcium Level 7.5 mg/dL (8.5-10.1) 7.8 mg/dL (8.5-10.1) Phosphorus Level 3.7 mg/dL (2.6-4.7) 3.0 mg/dL (2.6-4.7) Magnesium Level 1.8 mg/dL (1.8-2.4) 1.8 mg/dL (1.8-2.4) Albumin 2.6 g/dL (3.4-5.0) 2.6 g/dL (3.4-5.0) Laboratory Tests Test 09/17/16 06:50 Sodium Level 140 mmol/L (136-145) Potassium Level 3.9 mmol/L (3.5-5.1) Chloride Level 102 mmol/L (98-107) Carbon Dioxide Level 27 mmol/L (21-32) Anion Gap 11 (6-14) Blood Urea Nitrogen 42 mg/dL (8-26) Creatinine 7.1 mg/dL (0.7-1.3) Estimated GFR (Cockcroft-Gault) 8.0 Glucose Level 104 mg/dL (70-99) Calcium Level 7.8 mg/dL (8.5-10.1) Phosphorus Level 3.0 mg/dL (2.6-4.7) Magnesium Level 1.8 mg/dL (1.8-2.4) Albumin 2.6 g/dL (3.4-5.0) Microbiology 09/13/16 Blood Culture - Preliminary, Resulted 09/13/16 Blood Culture Result 1 (JESSICA) - Preliminary, Resulted 09/13/16 Urine Culture - Final, Complete 09/13/16 Urine Culture Result 1 (JESSICA) - Final, Complete 09/13/16 Antimicrobic Susceptibility - Final, Complete 09/14/16 Gram Stain - Final, Complete Medications Current Medications Vancomycin HCl (Vanco Per Pharmacy) 1 each PRN DAILY PRN MC SEE COMMENTS Last administered on 09/15/16 12:21; Start 09/13/16 at 09:00; Stop 09/16/16 at 10:07; Status DC Piperacillin Sod/ Tazobactam Sod (Zosyn Per Pharmacy) 1 each PRN DAILY PRN MC SEE COMMENTS; Start 09/13/16 at 09:00; Stop 09/15/16 at 12:15; Status DC Sodium Chloride 500 ml @ 500 mls/hr 1X ONCE IV Last administered on 09/13/16 09:06; Start 09/13/16 at 09:00; Stop 09/13/16 at 09:59; Status DC Acetaminophen (Tylenol) 650 mg 1X ONCE PO Last administered on 09/13/16 09:06 ; Start 09/13/16 at 09:00; Stop 09/13/16 at 09:04; Status DC Piperacillin Sod/ Tazobactam Sod 2.25 gm/Sodium Chloride 50 ml @ 100 mls/hr 1X ONCE IV Last administered on 09/13/16 09:24; Start 09/13/16 at 09:45; Stop 09/13/16 at 10:14; Status DC Ondansetron HCl (Zofran) 4 mg 1X ONCE IV Last administered on 09/13/16 09:05; Start 09/13/16 at 09:15; Stop 09/13/16 at 09:16; Status DC Vancomycin HCl 2 gm/Sodium Chloride 500 ml @ 250 mls/hr 1X ONCE IV Last administered on 09/13/16 09:58; Start 09/13/16 at 10:15; Stop 09/13/16 at 12:14; Status DC Ondansetron HCl (Zofran) 4 mg STK-MED ONCE .ROUTE ; Start 09/13/16 at 09:03; Stop 09/13/16 at 09:04; Status DC Ondansetron HCl (Zofran) 4 mg PRN Q8HRS PRN IV NAUSEA/VOMITING; Start 09/13/16 at 10:00; Stop 09/13/16 at 13:55; Status DC Morphine Sulfate 2 mg PRN Q2HR PRN IV PAIN; Start 09/13/16 at 10:00; Stop at 13:55; Status DC Sodium Chloride 500 ml @ 500 mls/hr 1X ONCE IV Last administered on 09/13/16 10:00; Start 09/13/16 at 10:00; Stop 09/13/16 at 10:59; Status DC Piperacillin Sod/ Tazobactam Sod 2.25 gm/Sodium Chloride 50 ml @ 100 mls/hr Q8HRS IV Last administered on 09/15/16 06:01; Start 09/13/16 at 20:00; Stop 09/15 at 10:36; Status DC Vancomycin HCl 500 mg/Sodium Chloride 100 ml @ 100 mls/hr QTUTHSA IV Last administered on 09/15/16 17:38; Start 09/15/16 at 16:00; Stop 09/16/16 at 10:07; Status DC Sodium Chloride 1,000 ml @ 1,000 mls/hr 1X ONCE IV Last administered on 12:45; Start 09/13/16 at 12:45; Stop 09/13/16 at 13:44; Status DC Acetaminophen (Tylenol) 650 mg PRN Q6HRS PRN PO FEVER Last administered on 08:08; Start 09/13/16 at 14:00 Ondansetron HCl (Zofran) 4 mg PRN Q6HRS PRN IV NAUSEA/VOMITING; Start 09/13/16 at 14:00 Morphine Sulfate 2 mg PRN Q2HR PRN IV PAIN; Start 09/13/16 at 14:00 Tramadol HCl (Ultram) 50 mg PRN Q6HRS PRN PO PAIN Last administered on 08:07; Start 09/13/16 at 14:00 Hydralazine HCl (Apresoline) 10 mg PRN Q4HRS PRN IVP ELEVATED BP, SEE COMMENTS ; Start 09/13/16 at 14:00 Docusate Sodium (Colace) 100 mg PRN DAILY PRN PO CONSTIPATION; Start 09/13/16 at 14:00 Heparin Sodium (Porcine) (Heparin Sq) 5,000 unit Q8HRS SQ Last administered on 09/17/16 06:26; Start 09/13/16 at 14:00 Amlodipine Besylate (Norvasc) 10 mg DAILY PO Last administered on 09/16/16 08: 17; Start 09/14/16 at 09:00 Hydralazine HCl (Apresoline) 50 mg TID PO Last administered on 09/16/16 20:53; Start 09/14/16 at 09:00 Lidocaine/ Epinephrine (Xylocaine 1%-Epi 1:100,000) 20 ml STK-MED ONCE .ROUTE ; Start 09/14/16 at 09:54; Stop 09/14/16 at 09:55; Status DC Lidocaine/Sodium Bicarbonate (Buffered Lidocaine 1%) 3 ml 1X ONCE IJ ; Start at 10:15; Stop 09/14/16 at 10:16; Status DC Lidocaine/ Epinephrine (Xylocaine 1%-Epi 1:100,000) 4 ml 1X ONCE INJ Last administered on 09/14/16 10:22; Start 09/14/16 at 10:30; Stop 09/14/16 at 10:33; Status DC Vancomycin HCl 500 mg/Sodium Chloride 100 ml @ 100 mls/hr 1X ONCE IV Last administered on 09/14/16 18:22; Start 09/14/16 at 16:00; Stop 09/14/16 at 16:59; Status DC Info (PHARMACY MONITORING -- do not chart) 1 each PRN DAILY PRN MC SEE COMMENTS ; Start 09/14/16 at 17:15; Status Cancel Info (PHARMACY MONITORING -- do not chart) 1 each PRN DAILY PRN MC SEE COMMENTS ; Start 09/14/16 at 17:15; Stop 09/17/16 at 09:31; Status DC Prednisone (Prednisone) 10 mg 1X ONCE PO Last administered on 09/15/16 11:52; Start 09/15/16 at 11:30; Stop 09/15/16 at 11:31; Status DC Darbepoetin Juan (Aranesp) 60 mcg WEEKLYHS SQ Last administered on 09/15/16 21: 26; Start 09/15/16 at 21:00 Magnesium Sulfate/ Dextrose 50 ml @ 25 mls/hr PRN DAILY PRN IV for Mag < 1.7 on am labs; Start 09/15/16 at 11:00 Calcium Carbonate/ Glycine (Oscal) 1,000 mg TID PO Last administered on 20:52; Start 09/15/16 at 14:00 Sodium Chloride 1,000 ml @ 1,000 mls/hr Q1H PRN IV hypotension; Start 09/15/16 at 14:00; Stop 09/15/16 at 19:59; Status DC Info (PHARMACY MONITORING -- do not chart) 1 each PRN DAILY PRN MC SEE COMMENTS ; Start 09/15/16 at 14:00; Status UNV Sodium Chloride 1,000 ml @ 1,000 mls/hr Q1H PRN IV hypotension; Start 09/16/16 at 08:20; Stop 09/16/16 at 14:19; Status DC Albumin Human 200 ml @ 200 mls/hr 1X PRN PRN IV Hypotension; Start 09/16/16 at 08:30; Stop 09/16/16 at 14:29; Status DC Info (PHARMACY MONITORING -- do not chart) 1 each PRN DAILY PRN MC SEE COMMENTS ; Start 09/16/16 at 08:30; Status UNV Cefazolin Sodium 1 gm/Sodium Chloride 50 ml @ 100 mls/hr DAILY16 IV Last administered on 09/16/16 16:44; Start 09/16/16 at 16:00 Lidocaine HCl (Viscous Lidocaine) 15 ml STK-MED ONCE .ROUTE ; Start 09/16/16 at 11:46; Stop 09/16/16 at 11:47; Status DC Benzocaine (Hurricaine One) 1 spray STK-MED ONCE .ROUTE ; Start 09/16/16 at 11:46 ; Stop 09/16/16 at 11:47; Status DC Lidocaine HCl (Xylocaine 2% Topical 30gm Tube) 30 pepe STK-MED ONCE TP ; Start at 11:46; Stop 09/16/16 at 11:47; Status DC Ondansetron HCl (Zofran) 4 mg PRN Q6HRS PRN IV NAUSEA/VOMITING; Start 09/16/16 at 13:15; Stop 09/17/16 at 13:14 Fentanyl Citrate (Fentanyl 2ml Vial) 25 mcg PRN Q5MIN PRN IV MILD PAIN; Start 09/16/16 at 13:15; Stop 09/17/16 at 13:14 Fentanyl Citrate (Fentanyl 2ml Vial) 50 mcg PRN Q5MIN PRN IV MODERATE PAIN; Start 09/16/16 at 13:15; Stop 09/17/16 at 13:14 Morphine Sulfate 1 mg PRN Q10MIN PRN IV SEVERE PAIN; Start 09/16/16 at 13:15; Stop 09/17/16 at 13:14 Ringer's Solution 1,000 ml @ 30 mls/hr Q24H IV ; Start 09/16/16 at 13:02; Stop 09/17/16 at 01:01; Status DC Lidocaine HCl 2 ml PRN 1X PRN ID PRIOR TO IV START; Start 09/16/16 at 13:15; Stop 09/17/16 at 13:14 Hydromorphone HCl (Dilaudid) 0.5 mg PRN Q10MIN PRN IV SEV PAIN, Second choice; Start 09/16/16 at 13:15; Stop 09/17/16 at 13:14 Prochlorperazine Edisylate (Compazine) 5 mg PACU PRN PRN IV NAUSEA, MRX1; Start 09/16/16 at 13:15; Stop 09/17/16 at 13:14 Sodium Chloride (Normal Saline Flush) 10 ml QSHIFT PRN IV AFTER MEDS AND BLOOD DRAWS; Start 09/16/16 at 13:45 Lidocaine HCl (Xylocaine 2% Topical 5gm Tube) 1 pepe 1X ONCE TP ; Start 09/16/16 at 13:45; Stop 09/16/16 at 13:46; Status DC Lidocaine HCl (Viscous Lidocaine) 15 ml 1X ONCE MM ; Start 09/16/16 at 13:45; Stop 09/16/16 at 13:46; Status DC Benzocaine (Hurricaine One) 3 spray 1X ONCE MM ; Start 09/16/16 at 13:45; Stop 09/16/16 at 13:46; Status DC Ondansetron HCl (Zofran) 4 mg PRN Q6HRS PRN IV NAUSEA/VOMITING; Start 09/19/16 at 07:00; Stop 09/20/16 at 06:59 Fentanyl Citrate (Fentanyl 2ml Vial) 25 mcg PRN Q5MIN PRN IV MILD PAIN; Start 09/19/16 at 07:00; Stop 09/20/16 at 06:59 Fentanyl Citrate (Fentanyl 2ml Vial) 50 mcg PRN Q5MIN PRN IV MODERATE PAIN; Start 09/19/16 at 07:00; Stop 09/20/16 at 06:59 Morphine Sulfate 1 mg PRN Q10MIN PRN IV SEVERE PAIN; Start 09/19/16 at 07:00; Stop 09/20/16 at 06:59 Ringer's Solution 1,000 ml @ 30 mls/hr Q24H IV ; Start 09/19/16 at 07:00; Stop 09/19/16 at 18:59 Lidocaine HCl 2 ml PRN 1X PRN ID PRIOR TO IV START; Start 09/19/16 at 07:00; Stop 09/20/16 at 06:59 Hydromorphone HCl (Dilaudid) 0.5 mg PRN Q10MIN PRN IV SEV PAIN, Second choice; Start 09/19/16 at 07:00; Stop 09/20/16 at 06:59 Prochlorperazine Edisylate (Compazine) 5 mg PACU PRN PRN IV NAUSEA, MRX1; Start 09/19/16 at 07:00; Stop 09/20/16 at 06:59 Lidocaine HCl (Xylocaine-Mpf 1% Vial) 2 ml STK-MED ONCE .ROUTE ; Start 09/17/16 at 06:48; Stop 09/17/16 at 06:49; Status DC Sodium Chloride 1,000 ml @ 1,000 mls/hr Q1H PRN IV hypotension; Start 09/17/16 at 07:00; Stop 09/17/16 at 12:59 Sodium Chloride 1,000 ml @ 400 mls/hr Q2H30M PRN IV PATENCY; Start 09/17/16 at 07:00; Stop 09/17/16 at 18:59 Info (PHARMACY MONITORING -- do not chart) 1 each PRN DAILY PRN MC SEE COMMENTS ; Start 09/17/16 at 08:15 Active Scripts Active Reported Amlodipine Besylate 10 Mg Tablet 10 Mg PO DAILY Hydralazine Hcl 50 Mg Tablet 1 Tab PO TID Vitals/I & O Vital Sign - Last 24 Hours 09/16/16 09/16/16 09/16/16 09/16/16 15:00 15:15 19:00 20:00 Temp 97.9 97.7 97.9 97.7 Pulse 84 84 80 Resp 16 17 B/P (MAP) 138/70 (92) 138/70 141/76 (97) Pulse Ox 94 97 O2 Delivery Room Air Room Air Room Air 09/16/16 09/16/16 20:53 23:00 Temp 97.8 97.8 Pulse 84 90 Resp 17 B/P (MAP) 138/70 148/81 (103) Pulse Ox 96 O2 Delivery Room Air Intake and Output 09/16/16 09/16/16 09/17/16 15:00 23:00 07:00 Intake Total 250 ml 1000 ml Balance 250 ml 1000 ml RENAY NEWBERRY MD Sep 17, 2016 10:47
[2016-09-17 11:00] VITALS: BP 134/76
[2016-09-17] MEDS: amLODIPine BESYLATE 10 MG TABLET PO SCH (12:48)
[2016-09-17] MEDS: CALCIUM CARBONATE 500 MG TABLET PO SCH ×3 (12:49→20:09)
--- NOTE | 2016-09-17 14:23 | PDOC ---
PROGRESS NOTES Subjective Subjective SEEN IN FOLLOW UP OF ESRD Objective Objective Vital Signs Date Time Temp Pulse Resp B/P (MAP) Pulse Ox O2 Delivery O2 Flow Rate FiO2 09/17/16 12:49 86 139/93 09/17/16 11:10 Room Air 09/17/16 11:00 98.4 22 98 98.4 09/15/16 20:00 2.0 Intake and Output 09/17/16 07:00 Intake Total 1250 ml Balance 1250 ml Intake Oral 1250 ml # Voids 4 Physical Exam Abdomen: Normal bowel sounds, Soft, No tenderness, No hepatosplenomegaly, No masses Heart: Regular rate, Normal S1, Normal S2, No murmurs, Gallops Extremities: No clubbing, No cyanosis, No edema, Normal pulses, No tenderness/ swelling General: Alert, Oriented X3, Cooperative, No acute distress Psych/Mental Status: Mental status NL, Mood NL Diagnosis RENAL FAILURE: ESRD Assessment Assessment Problems Medical Problems: (1) End stage renal disease Status: Acute (2) Fever Status: Acute (3) Tachycardia Status: Acute Plan Plan of Care DIALYSIS TODAY AND TOLERATED WELL Comment Review of Relevant I have reviewed the following items veena (where applicable) has been applied. Labs Laboratory Tests Test 09/16/16 04:20 09/17/16 06:50 Hemoglobin 8.3 g/dL (13.0-17.5) Sodium Level 138 mmol/L (136-145) 140 mmol/L (136-145) Potassium Level 3.8 mmol/L (3.5-5.1) 3.9 mmol/L (3.5-5.1) Chloride Level 100 mmol/L (98-107) 102 mmol/L (98-107) Carbon Dioxide Level 27 mmol/L (21-32) 27 mmol/L (21-32) Anion Gap 11 (6-14) 11 (6-14) Blood Urea Nitrogen 27 mg/dL (8-26) 42 mg/dL (8-26) Creatinine 5.1 mg/dL (0.7-1.3) 7.1 mg/dL (0.7-1.3) Estimated GFR (Cockcroft-Gault) 11.8 8.0 Glucose Level 126 mg/dL (70-99) 104 mg/dL (70-99) Calcium Level 7.5 mg/dL (8.5-10.1) 7.8 mg/dL (8.5-10.1) Phosphorus Level 3.7 mg/dL (2.6-4.7) 3.0 mg/dL (2.6-4.7) Magnesium Level 1.8 mg/dL (1.8-2.4) 1.8 mg/dL (1.8-2.4) Albumin 2.6 g/dL (3.4-5.0) 2.6 g/dL (3.4-5.0) Laboratory Tests Test 09/17/16 06:50 Sodium Level 140 mmol/L (136-145) Potassium Level 3.9 mmol/L (3.5-5.1) Chloride Level 102 mmol/L (98-107) Carbon Dioxide Level 27 mmol/L (21-32) Anion Gap 11 (6-14) Blood Urea Nitrogen 42 mg/dL (8-26) Creatinine 7.1 mg/dL (0.7-1.3) Estimated GFR (Cockcroft-Gault) 8.0 Glucose Level 104 mg/dL (70-99) Calcium Level 7.8 mg/dL (8.5-10.1) Phosphorus Level 3.0 mg/dL (2.6-4.7) Magnesium Level 1.8 mg/dL (1.8-2.4) Albumin 2.6 g/dL (3.4-5.0) Microbiology 09/16/16 Blood Culture - Preliminary, Resulted NO GROWTH AFTER 1 DAY 09/13/16 Urine Culture - Final, Complete 09/13/16 Urine Culture Result 1 (JESSICA) - Final, Complete 09/13/16 Antimicrobic Susceptibility - Final, Complete 09/14/16 Gram Stain - Final, Complete Medications Current Medications Vancomycin HCl (Vanco Per Pharmacy) 1 each PRN DAILY PRN MC SEE COMMENTS Last administered on 09/15/16 12:21; Start 09/13/16 at 09:00; Stop 09/16/16 at 10:07; Status DC Piperacillin Sod/ Tazobactam Sod (Zosyn Per Pharmacy) 1 each PRN DAILY PRN MC SEE COMMENTS; Start 09/13/16 at 09:00; Stop 09/15/16 at 12:15; Status DC Sodium Chloride 500 ml @ 500 mls/hr 1X ONCE IV Last administered on 09/13/16 09:06; Start 09/13/16 at 09:00; Stop 09/13/16 at 09:59; Status DC Acetaminophen (Tylenol) 650 mg 1X ONCE PO Last administered on 09/13/16 09:06 ; Start 09/13/16 at 09:00; Stop 09/13/16 at 09:04; Status DC Piperacillin Sod/ Tazobactam Sod 2.25 gm/Sodium Chloride 50 ml @ 100 mls/hr 1X ONCE IV Last administered on 09/13/16 09:24; Start 09/13/16 at 09:45; Stop 09/13/16 at 10:14; Status DC Ondansetron HCl (Zofran) 4 mg 1X ONCE IV Last administered on 09/13/16 09:05; Start 09/13/16 at 09:15; Stop 09/13/16 at 09:16; Status DC Vancomycin HCl 2 gm/Sodium Chloride 500 ml @ 250 mls/hr 1X ONCE IV Last administered on 09/13/16 09:58; Start 09/13/16 at 10:15; Stop 09/13/16 at 12:14; Status DC Ondansetron HCl (Zofran) 4 mg STK-MED ONCE .ROUTE ; Start 09/13/16 at 09:03; Stop 09/13/16 at 09:04; Status DC Ondansetron HCl (Zofran) 4 mg PRN Q8HRS PRN IV NAUSEA/VOMITING; Start 09/13/16 at 10:00; Stop 09/13/16 at 13:55; Status DC Morphine Sulfate 2 mg PRN Q2HR PRN IV PAIN; Start 09/13/16 at 10:00; Stop at 13:55; Status DC Sodium Chloride 500 ml @ 500 mls/hr 1X ONCE IV Last administered on 09/13/16 10:00; Start 09/13/16 at 10:00; Stop 09/13/16 at 10:59; Status DC Piperacillin Sod/ Tazobactam Sod 2.25 gm/Sodium Chloride 50 ml @ 100 mls/hr Q8HRS IV Last administered on 09/15/16 06:01; Start 09/13/16 at 20:00; Stop 09/15 at 10:36; Status DC Vancomycin HCl 500 mg/Sodium Chloride 100 ml @ 100 mls/hr QTUTHSA IV Last administered on 09/15/16 17:38; Start 09/15/16 at 16:00; Stop 09/16/16 at 10:07; Status DC Sodium Chloride 1,000 ml @ 1,000 mls/hr 1X ONCE IV Last administered on 12:45; Start 09/13/16 at 12:45; Stop 09/13/16 at 13:44; Status DC Acetaminophen (Tylenol) 650 mg PRN Q6HRS PRN PO FEVER Last administered on 08:08; Start 09/13/16 at 14:00 Ondansetron HCl (Zofran) 4 mg PRN Q6HRS PRN IV NAUSEA/VOMITING; Start 09/13/16 at 14:00 Morphine Sulfate 2 mg PRN Q2HR PRN IV PAIN; Start 09/13/16 at 14:00 Tramadol HCl (Ultram) 50 mg PRN Q6HRS PRN PO PAIN Last administered on 08:07; Start 09/13/16 at 14:00 Hydralazine HCl (Apresoline) 10 mg PRN Q4HRS PRN IVP ELEVATED BP, SEE COMMENTS ; Start 09/13/16 at 14:00 Docusate Sodium (Colace) 100 mg PRN DAILY PRN PO CONSTIPATION; Start 09/13/16 at 14:00 Heparin Sodium (Porcine) (Heparin Sq) 5,000 unit Q8HRS SQ Last administered on 09/17/16 06:26; Start 09/13/16 at 14:00 Amlodipine Besylate (Norvasc) 10 mg DAILY PO Last administered on 09/17/16 12: 48; Start 09/14/16 at 09:00 Hydralazine HCl (Apresoline) 50 mg TID PO Last administered on 09/17/16 12:49; Start 09/14/16 at 09:00 Lidocaine/ Epinephrine (Xylocaine 1%-Epi 1:100,000) 20 ml STK-MED ONCE .ROUTE ; Start 09/14/16 at 09:54; Stop 09/14/16 at 09:55; Status DC Lidocaine/Sodium Bicarbonate (Buffered Lidocaine 1%) 3 ml 1X ONCE IJ ; Start at 10:15; Stop 09/14/16 at 10:16; Status DC Lidocaine/ Epinephrine (Xylocaine 1%-Epi 1:100,000) 4 ml 1X ONCE INJ Last administered on 09/14/16 10:22; Start 09/14/16 at 10:30; Stop 09/14/16 at 10:33; Status DC Vancomycin HCl 500 mg/Sodium Chloride 100 ml @ 100 mls/hr 1X ONCE IV Last administered on 09/14/16 18:22; Start 09/14/16 at 16:00; Stop 09/14/16 at 16:59; Status DC Info (PHARMACY MONITORING -- do not chart) 1 each PRN DAILY PRN MC SEE COMMENTS ; Start 09/14/16 at 17:15; Status Cancel Info (PHARMACY MONITORING -- do not chart) 1 each PRN DAILY PRN MC SEE COMMENTS ; Start 09/14/16 at 17:15; Stop 09/17/16 at 09:31; Status DC Prednisone (Prednisone) 10 mg 1X ONCE PO Last administered on 09/15/16 11:52; Start 09/15/16 at 11:30; Stop 09/15/16 at 11:31; Status DC Darbepoetin Juan (Aranesp) 60 mcg WEEKLYHS SQ Last administered on 09/15/16 21: 26; Start 09/15/16 at 21:00 Magnesium Sulfate/ Dextrose 50 ml @ 25 mls/hr PRN DAILY PRN IV for Mag < 1.7 on am labs; Start 09/15/16 at 11:00 Calcium Carbonate/ Glycine (Oscal) 1,000 mg TID PO Last administered on 12:49; Start 09/15/16 at 14:00 Sodium Chloride 1,000 ml @ 1,000 mls/hr Q1H PRN IV hypotension; Start 09/15/16 at 14:00; Stop 09/15/16 at 19:59; Status DC Info (PHARMACY MONITORING -- do not chart) 1 each PRN DAILY PRN MC SEE COMMENTS ; Start 09/15/16 at 14:00; Status UNV Sodium Chloride 1,000 ml @ 1,000 mls/hr Q1H PRN IV hypotension; Start 09/16/16 at 08:20; Stop 09/16/16 at 14:19; Status DC Albumin Human 200 ml @ 200 mls/hr 1X PRN PRN IV Hypotension; Start 09/16/16 at 08:30; Stop 09/16/16 at 14:29; Status DC Info (PHARMACY MONITORING -- do not chart) 1 each PRN DAILY PRN MC SEE COMMENTS ; Start 09/16/16 at 08:30; Status UNV Cefazolin Sodium 1 gm/Sodium Chloride 50 ml @ 100 mls/hr DAILY16 IV Last administered on 09/16/16t 16:44; Start 09/16/16 at 16:00 Lidocaine HCl (Viscous Lidocaine) 15 ml STK-MED ONCE .ROUTE ; Start 09/16/16 at 11:46; Stop 09/16/16 at 11:47; Status DC Benzocaine (Hurricaine One) 1 spray STK-MED ONCE .ROUTE ; Start 09/16/16 at 11:46 ; Stop 09/16/16 at 11:47; Status DC Lidocaine HCl (Xylocaine 2% Topical 30gm Tube) 30 pepe STK-MED ONCE TP ; Start at 11:46; Stop 09/16/16 at 11:47; Status DC Ondansetron HCl (Zofran) 4 mg PRN Q6HRS PRN IV NAUSEA/VOMITING; Start 09/16/16 at 13:15; Stop 09/17/16 at 13:14; Status DC Fentanyl Citrate (Fentanyl 2ml Vial) 25 mcg PRN Q5MIN PRN IV MILD PAIN; Start 09/16/16 at 13:15; Stop 09/17/16 at 13:14; Status DC Fentanyl Citrate (Fentanyl 2ml Vial) 50 mcg PRN Q5MIN PRN IV MODERATE PAIN; Start 09/16/16 at 13:15; Stop 09/17/16 at 13:14; Status DC Morphine Sulfate 1 mg PRN Q10MIN PRN IV SEVERE PAIN; Start 09/16/16 at 13:15; Stop 09/17/16 at 13:14; Status DC Ringer's Solution 1,000 ml @ 30 mls/hr Q24H IV ; Start 09/16/16 at 13:02; Stop 09/17/16 at 01:01; Status DC Lidocaine HCl 2 ml PRN 1X PRN ID PRIOR TO IV START; Start 09/16/16 at 13:15; Stop 09/17/16 at 13:14; Status DC Hydromorphone HCl (Dilaudid) 0.5 mg PRN Q10MIN PRN IV SEV PAIN, Second choice; Start 09/16/16 at 13:15; Stop 09/17/16 at 13:14; Status DC Prochlorperazine Edisylate (Compazine) 5 mg PACU PRN PRN IV NAUSEA, MRX1; Start 09/16/16 at 13:15; Stop 09/17/16 at 13:14; Status DC Sodium Chloride (Normal Saline Flush) 10 ml QSHIFT PRN IV AFTER MEDS AND BLOOD DRAWS; Start 09/16/16 at 13:45 Lidocaine HCl (Xylocaine 2% Topical 5gm Tube) 1 pepe 1X ONCE TP ; Start 09/16/16 at 13:45; Stop 09/16/16 at 13:46; Status DC Lidocaine HCl (Viscous Lidocaine) 15 ml 1X ONCE MM ; Start 09/16/16 at 13:45; Stop 09/16/16 at 13:46; Status DC Benzocaine (Hurricaine One) 3 spray 1X ONCE MM ; Start 09/16/16 at 13:45; Stop 09/16/16 at 13:46; Status DC Ondansetron HCl (Zofran) 4 mg PRN Q6HRS PRN IV NAUSEA/VOMITING; Start 09/19/16 at 07:00; Stop 09/20/16 at 06:59 Fentanyl Citrate (Fentanyl 2ml Vial) 25 mcg PRN Q5MIN PRN IV MILD PAIN; Start 09/19/16 at 07:00; Stop 09/20/16 at 06:59 Fentanyl Citrate (Fentanyl 2ml Vial) 50 mcg PRN Q5MIN PRN IV MODERATE PAIN; Start 09/19/16 at 07:00; Stop 09/20/16 at 06:59 Morphine Sulfate 1 mg PRN Q10MIN PRN IV SEVERE PAIN; Start 09/19/16 at 07:00; Stop 09/20/16 at 06:59 Ringer's Solution 1,000 ml @ 30 mls/hr Q24H IV ; Start 09/19/16 at 07:00; Stop 09/19/16 at 18:59 Lidocaine HCl 2 ml PRN 1X PRN ID PRIOR TO IV START; Start 09/19/16 at 07:00; Stop 09/20/16 at 06:59 Hydromorphone HCl (Dilaudid) 0.5 mg PRN Q10MIN PRN IV SEV PAIN, Second choice; Start 09/19/16 at 07:00; Stop 09/20/16 at 06:59 Prochlorperazine Edisylate (Compazine) 5 mg PACU PRN PRN IV NAUSEA, MRX1; Start 09/19/16 at 07:00; Stop 09/20/16 at 06:59 Lidocaine HCl (Xylocaine-Mpf 1% Vial) 2 ml STK-MED ONCE .ROUTE ; Start 09/17/16 at 06:48; Stop 09/17/16 at 06:49; Status DC Sodium Chloride 1,000 ml @ 1,000 mls/hr Q1H PRN IV hypotension; Start 09/17/16 at 07:00; Stop 09/17/16 at 12:59; Status DC Sodium Chloride 1,000 ml @ 400 mls/hr Q2H30M PRN IV PATENCY; Start 09/17/16 at 07:00; Stop 09/17/16 at 18:59 Info (PHARMACY MONITORING -- do not chart) 1 each PRN DAILY PRN MC SEE COMMENTS ; Start 09/17/16 at 08:15 Active Scripts Active Reported Amlodipine Besylate 10 Mg Tablet 10 Mg PO DAILY Hydralazine Hcl 50 Mg Tablet 1 Tab PO TID Vitals/I & O Vital Sign - Last 24 Hours 09/16/16 09/16/16 09/16/16 09/16/16 15:00 15:15 19:00 20:00 Temp 97.9 97.7 97.9 97.7 Pulse 84 84 80 Resp 16 17 B/P (MAP) 138/70 (92) 138/70 141/76 (97) Pulse Ox 94 97 O2 Delivery Room Air Room Air Room Air 09/16/16 09/16/16 09/17/16 09/17/16 20:53 23:00 11:00 11:10 Temp 97.8 98.4 97.8 98.4 Pulse 84 90 88 Resp 17 22 B/P (MAP) 138/70 148/81 (103) 134/76 (95) Pulse Ox 96 98 O2 Delivery Room Air Room Air Room Air 09/17/16 09/17/16 12:48 12:49 Pulse 86 86 B/P (MAP) 139/93 139/93 Intake and Output 09/16/16 09/16/16 09/17/16 15:00 23:00 07:00 Intake Total 250 ml 1000 ml Balance 250 ml 1000 ml REBA PALACIOS MD Sep 17, 2016 14:23
[2016-09-17 15:00] VITALS: BP 129/66
[2016-09-17 19:00] VITALS: BP 151/83
[2016-09-17 23:00] VITALS: BP 151/72
[2016-09-18] MEDS: HEPARIN PF for SUB-Q USE 5,000 UNIT/0.5 ML VIAL. SQ SCH ×3 (04:11→20:48)
[2016-09-18 05:56] LABS: ALBUMIN 2.7 g/dL (3.4-5.0); CALCIUM 8.2 mg/dL (8.5-10.1); CREATININE 5.5 mg/dL (0.7-1.3); GFR 10.8; PHOSPHORUS 2.4 mg/dL (2.6-4.7); POTASSIUM 3.8 mmol/L (3.5-5.1)
[2016-09-18 07:00] VITALS: BP 143/81
--- NOTE | 2016-09-18 07:41 | PDOC ---
Infectious Disease Note Subjective Subjective feeling good ROS ROS GEN: Denies fevers, chills, sweats HEENT: Denies blurred vision, sore throat CV: Denies chest pain RESP: Denies shortness of air, cough GI: Denies n/v/d NEURO: Denies confusion, dizziness MSK: Denies weakness, joint pain/swelling Vital Sign Vital Signs Vital Signs Date Time Temp Pulse Resp B/P (MAP) Pulse Ox O2 Delivery O2 Flow Rate FiO2 09/17/16 23:00 97.9 80 18 151/72 (98) 93 Room Air 97.9 09/17/16 20:00 2.0 Physical Exam PHYSICAL EXAM GENERAL: NAD, Alert HEENT: PERRL, nml conj, OC/OP -clear NECK: Supple, no JVD, no LN LUNGS: Clear HEART: S1S2, no gallop, no murmur ABD: Soft, NT, no organomegaly, no rebound EXT: No edema, no cyanosis, no splinters MULTIPLE DRUM SANDER: Alert, oriented x 3, no focal neurologic deficit SKIN: No rash IV: ok, Old HD site is clean Labs Lab Laboratory Tests Test 09/18/16 03:40 Sodium Level 140 mmol/L (136-145) Potassium Level 3.8 mmol/L (3.5-5.1) Chloride Level 101 mmol/L (98-107) Carbon Dioxide Level 31 mmol/L (21-32) Anion Gap 8 (6-14) Blood Urea Nitrogen 24 mg/dL (8-26) Creatinine 5.5 mg/dL (0.7-1.3) Estimated GFR (Cockcroft-Gault) 10.8 Glucose Level 103 mg/dL (70-99) Calcium Level 8.2 mg/dL (8.5-10.1) Phosphorus Level 2.4 mg/dL (2.6-4.7) Magnesium Level 1.7 mg/dL (1.8-2.4) Albumin 2.7 g/dL (3.4-5.0) Objective Assessment Fever and chills BC + with staph,, MSSA 09/13 - repeat so far neg 09/16 ESRD HTN Plan Plan of Care Cont cefazolin F/u LOS pending F/u cults MARY ANNE AQUINO MD Sep 18, 2016 07:41
[2016-09-18] MEDS: CALCIUM CARBONATE 500 MG TABLET PO SCH ×3 (08:55→20:46)
[2016-09-18] MEDS: amLODIPine BESYLATE 10 MG TABLET PO SCH (08:55)
[2016-09-18 11:08] VITALS: BP 144/70
--- NOTE | 2016-09-18 12:06 | PDOC ---
PROGRESS NOTES Chief Complaint Chief Complaint 1. Sepsis, with GPC bacteremia (Staph aureaus) from infected HD cath (removed ) 2. ESRD on HD TTS 3. htn, controlled 4. bandemia 5. metabolic acidosis 6. lactate acidosis, POA, normal now on day 2 7. anemia of CKD History of Present Illness History of Present Illness no fevers, no leukocytosis Cath tip staph aureus BC staph aureus Urine cx staph aureus Vitals Vitals Vital Signs Date Time Temp Pulse Resp B/P (MAP) Pulse Ox O2 Delivery O2 Flow Rate FiO2 09/18/16 11:08 97.9 87 18 144/70 (94) 97 Room Air 97.9 09/17/16 20:00 2.0 Physical Exam General: Alert, Oriented X3, Cooperative, No acute distress Heart: Regular rate, Normal S1, Normal S2, No murmurs, Gallops Lungs: Clear, Wheezing Abdomen: Normal bowel sounds, Soft, No tenderness, No hepatosplenomegaly, No masses Extremities: No clubbing, No cyanosis, No edema, Normal pulses, No tenderness/ swelling Skin: No rashes, No breakdown, No significant lesion Labs LABS Laboratory Tests Test 09/18/16 03:40 Sodium Level 140 mmol/L (136-145) Potassium Level 3.8 mmol/L (3.5-5.1) Chloride Level 101 mmol/L (98-107) Carbon Dioxide Level 31 mmol/L (21-32) Anion Gap 8 (6-14) Blood Urea Nitrogen 24 mg/dL (8-26) Creatinine 5.5 mg/dL (0.7-1.3) Estimated GFR (Cockcroft-Gault) 10.8 Glucose Level 103 mg/dL (70-99) Calcium Level 8.2 mg/dL (8.5-10.1) Phosphorus Level 2.4 mg/dL (2.6-4.7) Magnesium Level 1.7 mg/dL (1.8-2.4) Albumin 2.7 g/dL (3.4-5.0) Review of Systems Review of Systems co weakness Assessment and Plan Assessmemt and Plan Problems Medical Problems: (1) End stage renal disease Status: Acute (2) Fever Status: Acute (3) Tachycardia Status: Acute 1. Sepsis, with GPC bacteremia (Staph aureaus) from infected HD cath (removed ) 2. ESRD on HD TTS 3. htn, controlled 4. bandemia 5. metabolic acidosis 6. lactate acidosis, POA, normal now on day 2 7. anemia of CKD Plan #1 continue current antibiotics, #2 LOS pending, labs , infectious disease note reviewed, #3 Social work to arrange for a outpatient antibiotics as per infectious disease recommendations after LOS Problems: Comment Review of Relevant I have reviewed the following items veena (where applicable) has been applied. Labs Laboratory Tests Test 09/17/16 06:50 09/18/16 03:40 Sodium Level 140 mmol/L (136-145) 140 mmol/L (136-145) Potassium Level 3.9 mmol/L (3.5-5.1) 3.8 mmol/L (3.5-5.1) Chloride Level 102 mmol/L (98-107) 101 mmol/L (98-107) Carbon Dioxide Level 27 mmol/L (21-32) 31 mmol/L (21-32) Anion Gap 11 (6-14) 8 (6-14) Blood Urea Nitrogen 42 mg/dL (8-26) 24 mg/dL (8-26) Creatinine 7.1 mg/dL (0.7-1.3) 5.5 mg/dL (0.7-1.3) Estimated GFR (Cockcroft-Gault) 8.0 10.8 Glucose Level 104 mg/dL (70-99) 103 mg/dL (70-99) Calcium Level 7.8 mg/dL (8.5-10.1) 8.2 mg/dL (8.5-10.1) Phosphorus Level 3.0 mg/dL (2.6-4.7) 2.4 mg/dL (2.6-4.7) Magnesium Level 1.8 mg/dL (1.8-2.4) 1.7 mg/dL (1.8-2.4) Albumin 2.6 g/dL (3.4-5.0) 2.7 g/dL (3.4-5.0) Laboratory Tests Test 09/18/16 03:40 Sodium Level 140 mmol/L (136-145) Potassium Level 3.8 mmol/L (3.5-5.1) Chloride Level 101 mmol/L (98-107) Carbon Dioxide Level 31 mmol/L (21-32) Anion Gap 8 (6-14) Blood Urea Nitrogen 24 mg/dL (8-26) Creatinine 5.5 mg/dL (0.7-1.3) Estimated GFR (Cockcroft-Gault) 10.8 Glucose Level 103 mg/dL (70-99) Calcium Level 8.2 mg/dL (8.5-10.1) Phosphorus Level 2.4 mg/dL (2.6-4.7) Magnesium Level 1.7 mg/dL (1.8-2.4) Albumin 2.7 g/dL (3.4-5.0) Microbiology 09/17/16 Blood Culture - Preliminary, Resulted NO GROWTH AFTER 1 DAY 09/13/16 Urine Culture - Final, Complete 09/13/16 Urine Culture Result 1 (JESSICA) - Final, Complete 09/13/16 Antimicrobic Susceptibility - Final, Complete 09/14/16 Gram Stain - Final, Complete Medications Current Medications Vancomycin HCl (Vanco Per Pharmacy) 1 each PRN DAILY PRN MC SEE COMMENTS Last administered on 09/15/16 12:21; Start 09/13/16 at 09:00; Stop 09/16/16 at 10:07; Status DC Piperacillin Sod/ Tazobactam Sod (Zosyn Per Pharmacy) 1 each PRN DAILY PRN MC SEE COMMENTS; Start 09/13/16 at 09:00; Stop 09/15/16 at 12:15; Status DC Sodium Chloride 500 ml @ 500 mls/hr 1X ONCE IV Last administered on 09/13/16 09:06; Start 09/13/16 at 09:00; Stop 09/13/16 at 09:59; Status DC Acetaminophen (Tylenol) 650 mg 1X ONCE PO Last administered on 09/13/16 09:06 ; Start 09/13/16 at 09:00; Stop 09/13/16 at 09:04; Status DC Piperacillin Sod/ Tazobactam Sod 2.25 gm/Sodium Chloride 50 ml @ 100 mls/hr 1X ONCE IV Last administered on 09/13/16 09:24; Start 09/13/16 at 09:45; Stop 09/13/16 at 10:14; Status DC Ondansetron HCl (Zofran) 4 mg 1X ONCE IV Last administered on 09/13/16 09:05; Start 09/13/16 at 09:15; Stop 09/13/16 at 09:16; Status DC Vancomycin HCl 2 gm/Sodium Chloride 500 ml @ 250 mls/hr 1X ONCE IV Last administered on 09/13/16 09:58; Start 09/13/16 at 10:15; Stop 09/13/16 at 12:14; Status DC Ondansetron HCl (Zofran) 4 mg STK-MED ONCE .ROUTE ; Start 09/13/16 at 09:03; Stop 09/13/16 at 09:04; Status DC Ondansetron HCl (Zofran) 4 mg PRN Q8HRS PRN IV NAUSEA/VOMITING; Start 09/13/16 at 10:00; Stop 09/13/16 at 13:55; Status DC Morphine Sulfate 2 mg PRN Q2HR PRN IV PAIN; Start 09/13/16 at 10:00; Stop at 13:55; Status DC Sodium Chloride 500 ml @ 500 mls/hr 1X ONCE IV Last administered on 09/13/16 10:00; Start 09/13/16 at 10:00; Stop 09/13/16 at 10:59; Status DC Piperacillin Sod/ Tazobactam Sod 2.25 gm/Sodium Chloride 50 ml @ 100 mls/hr Q8HRS IV Last administered on 09/15/16 06:01; Start 09/13/16 at 20:00; Stop 09/15 at 10:36; Status DC Vancomycin HCl 500 mg/Sodium Chloride 100 ml @ 100 mls/hr QTUTHSA IV Last administered on 09/15/16 17:38; Start 09/15/16 at 16:00; Stop 09/16/16 at 10:07; Status DC Sodium Chloride 1,000 ml @ 1,000 mls/hr 1X ONCE IV Last administered on 12:45; Start 09/13/16 at 12:45; Stop 09/13/16 at 13:44; Status DC Acetaminophen (Tylenol) 650 mg PRN Q6HRS PRN PO FEVER Last administered on 08:08; Start 09/13/16 at 14:00 Ondansetron HCl (Zofran) 4 mg PRN Q6HRS PRN IV NAUSEA/VOMITING; Start 09/13/16 at 14:00 Morphine Sulfate 2 mg PRN Q2HR PRN IV PAIN; Start 09/13/16 at 14:00 Tramadol HCl (Ultram) 50 mg PRN Q6HRS PRN PO PAIN Last administered on 08:07; Start 09/13/16 at 14:00 Hydralazine HCl (Apresoline) 10 mg PRN Q4HRS PRN IVP ELEVATED BP, SEE COMMENTS ; Start 09/13/16 at 14:00 Docusate Sodium (Colace) 100 mg PRN DAILY PRN PO CONSTIPATION; Start 09/13/16 at 14:00 Heparin Sodium (Porcine) (Heparin Sq) 5,000 unit Q8HRS SQ Last administered on 09/17/16 06:26; Start 09/13/16 at 14:00 Amlodipine Besylate (Norvasc) 10 mg DAILY PO Last administered on 09/18/16 08: 55; Start 09/14/16 at 09:00 Hydralazine HCl (Apresoline) 50 mg TID PO Last administered on 09/18/16 08:55; Start 09/14/16 at 09:00 Lidocaine/ Epinephrine (Xylocaine 1%-Epi 1:100,000) 20 ml STK-MED ONCE .ROUTE ; Start 09/14/16 at 09:54; Stop 09/14/16 at 09:55; Status DC Lidocaine/Sodium Bicarbonate (Buffered Lidocaine 1%) 3 ml 1X ONCE IJ ; Start at 10:15; Stop 09/14/16 at 10:16; Status DC Lidocaine/ Epinephrine (Xylocaine 1%-Epi 1:100,000) 4 ml 1X ONCE INJ Last administered on 09/14/16 10:22; Start 09/14/16 at 10:30; Stop 09/14/16 at 10:33; Status DC Vancomycin HCl 500 mg/Sodium Chloride 100 ml @ 100 mls/hr 1X ONCE IV Last administered on 09/14/16 18:22; Start 09/14/16 at 16:00; Stop 09/14/16 at 16:59; Status DC Info (PHARMACY MONITORING -- do not chart) 1 each PRN DAILY PRN MC SEE COMMENTS ; Start 09/14/16 at 17:15; Status Cancel Info (PHARMACY MONITORING -- do not chart) 1 each PRN DAILY PRN MC SEE COMMENTS ; Start 09/14/16 at 17:15; Stop 09/17/16 at 09:31; Status DC Prednisone (Prednisone) 10 mg 1X ONCE PO Last administered on 09/15/16 11:52; Start 09/15/16 at 11:30; Stop 09/15/16 at 11:31; Status DC Darbepoetin Juan (Aranesp) 60 mcg WEEKLYHS SQ Last administered on 09/15/16 21: 26; Start 09/15/16 at 21:00 Magnesium Sulfate/ Dextrose 50 ml @ 25 mls/hr PRN DAILY PRN IV for Mag < 1.7 on am labs; Start 09/15/16 at 11:00 Calcium Carbonate/ Glycine (Oscal) 1,000 mg TID PO Last administered on 08:55; Start 09/15/16 at 14:00 Sodium Chloride 1,000 ml @ 1,000 mls/hr Q1H PRN IV hypotension; Start 09/15/16 at 14:00; Stop 09/15/16 at 19:59; Status DC Info (PHARMACY MONITORING -- do not chart) 1 each PRN DAILY PRN MC SEE COMMENTS ; Start 09/15/16 at 14:00; Status UNV Sodium Chloride 1,000 ml @ 1,000 mls/hr Q1H PRN IV hypotension; Start 09/16/16 at 08:20; Stop 09/16/16 at 14:19; Status DC Albumin Human 200 ml @ 200 mls/hr 1X PRN PRN IV Hypotension; Start 09/16/16 at 08:30; Stop 09/16/16 at 14:29; Status DC Info (PHARMACY MONITORING -- do not chart) 1 each PRN DAILY PRN MC SEE COMMENTS ; Start 09/16/16 at 08:30; Status UNV Cefazolin Sodium 1 gm/Sodium Chloride 50 ml @ 100 mls/hr DAILY16 IV Last administered on 09/17/16 16:57; Start 09/16/16 at 16:00 Lidocaine HCl (Viscous Lidocaine) 15 ml STK-MED ONCE .ROUTE ; Start 09/16/16 at 11:46; Stop 09/16/16 at 11:47; Status DC Benzocaine (Hurricaine One) 1 spray STK-MED ONCE .ROUTE ; Start 09/16/16 at 11:46 ; Stop 09/16/16 at 11:47; Status DC Lidocaine HCl (Xylocaine 2% Topical 30gm Tube) 30 pepe STK-MED ONCE TP ; Start at 11:46; Stop 09/16/16 at 11:47; Status DC Ondansetron HCl (Zofran) 4 mg PRN Q6HRS PRN IV NAUSEA/VOMITING; Start 09/16/16 at 13:15; Stop 09/17/16 at 13:14; Status DC Fentanyl Citrate (Fentanyl 2ml Vial) 25 mcg PRN Q5MIN PRN IV MILD PAIN; Start 09/16/16 at 13:15; Stop 09/17/16 at 13:14; Status DC Fentanyl Citrate (Fentanyl 2ml Vial) 50 mcg PRN Q5MIN PRN IV MODERATE PAIN; Start 09/16/16 at 13:15; Stop 09/17/16 at 13:14; Status DC Morphine Sulfate 1 mg PRN Q10MIN PRN IV SEVERE PAIN; Start 09/16/16 at 13:15; Stop 09/17/16 at 13:14; Status DC Ringer's Solution 1,000 ml @ 30 mls/hr Q24H IV ; Start 09/16/16 at 13:02; Stop 09/17/16 at 01:01; Status DC Lidocaine HCl 2 ml PRN 1X PRN ID PRIOR TO IV START; Start 09/16/16 at 13:15; Stop 09/17/16 at 13:14; Status DC Hydromorphone HCl (Dilaudid) 0.5 mg PRN Q10MIN PRN IV SEV PAIN, Second choice; Start 09/16/16 at 13:15; Stop 09/17/16 at 13:14; Status DC Prochlorperazine Edisylate (Compazine) 5 mg PACU PRN PRN IV NAUSEA, MRX1; Start 09/16/16 at 13:15; Stop 09/17/16 at 13:14; Status DC Sodium Chloride (Normal Saline Flush) 10 ml QSHIFT PRN IV AFTER MEDS AND BLOOD DRAWS; Start 09/16/16 at 13:45 Lidocaine HCl (Xylocaine 2% Topical 5gm Tube) 1 eppe 1X ONCE TP ; Start 09/16/16 at 13:45; Stop 09/16/16 at 13:46; Status DC Lidocaine HCl (Viscous Lidocaine) 15 ml 1X ONCE MM ; Start 09/16/16 at 13:45; Stop 09/16/16 at 13:46; Status DC Benzocaine (Hurricaine One) 3 spray 1X ONCE MM ; Start 09/16/16 at 13:45; Stop 09/16/16 at 13:46; Status DC Ondansetron HCl (Zofran) 4 mg PRN Q6HRS PRN IV NAUSEA/VOMITING; Start 09/19/16 at 07:00; Stop 09/20/16 at 06:59 Fentanyl Citrate (Fentanyl 2ml Vial) 25 mcg PRN Q5MIN PRN IV MILD PAIN; Start 09/19/16 at 07:00; Stop 09/20/16 at 06:59 Fentanyl Citrate (Fentanyl 2ml Vial) 50 mcg PRN Q5MIN PRN IV MODERATE PAIN; Start 09/19/16 at 07:00; Stop 09/20/16 at 06:59 Morphine Sulfate 1 mg PRN Q10MIN PRN IV SEVERE PAIN; Start 09/19/16 at 07:00; Stop 09/20/16 at 06:59 Ringer's Solution 1,000 ml @ 30 mls/hr Q24H IV ; Start 09/19/16 at 07:00; Stop 09/19/16 at 18:59 Lidocaine HCl 2 ml PRN 1X PRN ID PRIOR TO IV START; Start 09/19/16 at 07:00; Stop 09/20/16 at 06:59 Hydromorphone HCl (Dilaudid) 0.5 mg PRN Q10MIN PRN IV SEV PAIN, Second choice; Start 09/19/16 at 07:00; Stop 09/20/16 at 06:59 Prochlorperazine Edisylate (Compazine) 5 mg PACU PRN PRN IV NAUSEA, MRX1; Start 09/19/16 at 07:00; Stop 09/20/16 at 06:59 Lidocaine HCl (Xylocaine-Mpf 1% Vial) 2 ml STK-MED ONCE .ROUTE ; Start 09/17/16 at 06:48; Stop 09/17/16 at 06:49; Status DC Sodium Chloride 1,000 ml @ 1,000 mls/hr Q1H PRN IV hypotension; Start 09/17/16 at 07:00; Stop 09/17/16 at 12:59; Status DC Sodium Chloride 1,000 ml @ 400 mls/hr Q2H30M PRN IV PATENCY; Start 09/17/16 at 07:00; Stop 09/17/16 at 18:59; Status DC Info (PHARMACY MONITORING -- do not chart) 1 each PRN DAILY PRN MC SEE COMMENTS ; Start 09/17/16 at 08:15 Active Scripts Active Reported Amlodipine Besylate 10 Mg Tablet 10 Mg PO DAILY Hydralazine Hcl 50 Mg Tablet 1 Tab PO TID Vitals/I & O Vital Sign - Last 24 Hours 09/17/16 09/17/16 09/17/16 09/17/16 12:48 12:49 15:00 16:49 Temp 97.9 97.9 Pulse 86 86 69 69 Resp 20 B/P (MAP) 139/93 139/93 129/66 (87) 129/66 Pulse Ox 97 O2 Delivery Room Air 09/17/16 09/17/16 09/17/16 09/17/16 19:00 20:00 20:10 23:00 Temp 98.1 97.9 98.1 97.9 Pulse 83 85 80 Resp 18 18 B/P (MAP) 151/83 (105) 151/83 151/72 (98) Pulse Ox 94 93 O2 Delivery Room Air Room Air Room Air O2 Flow Rate 2.0 09/18/16 09/18/16 09/18/16 09/18/16 07:00 08:00 08:55 08:55 Temp 97.7 97.7 Pulse 77 77 77 Resp 18 B/P (MAP) 143/81 (101) 143/81 143/81 Pulse Ox 98 O2 Delivery Room Air Room Air 09/18/16 11:08 Temp 97.9 97.9 Pulse 87 Resp 18 B/P (MAP) 144/70 (94) Pulse Ox 97 O2 Delivery Room Air Intake and Output 09/17/16 09/17/16 09/18/16 15:00 23:00 07:00 Intake Total 240 ml 200 ml Output Total 0 ml 475 ml Balance 240 ml 200 ml -475 ml JASON PETERS K III DO Sep 18, 2016 12:06
[2016-09-18 15:00] VITALS: BP 143/75
[2016-09-18 19:00] VITALS: BP 149/71
[2016-09-18 23:00] VITALS: BP 147/77
[2016-09-19 03:00] VITALS: BP 141/83
[2016-09-19] MEDS: HEPARIN PF for SUB-Q USE 5,000 UNIT/0.5 ML VIAL. SQ SCH ×2 (05:49→15:08)
[2016-09-19 05:50] LABS: ALBUMIN 2.7 g/dL (3.4-5.0); CALCIUM 7.5 mg/dL (8.5-10.1); CREATININE 7.7 mg/dL (0.7-1.3); GFR 7.3; POTASSIUM 3.5 mmol/L (3.5-5.1)
[2016-09-19 07:00] VITALS: BP 164/80
[2016-09-19] MEDS ORDERED: HYDROmorphone 2 MG/ML VIAL IV PRN (07:00)
[2016-09-19] MEDS ORDERED: MORPHINE SULFATE 2 MG/ML DISP.SYRIN. IV PRN (07:00)
[2016-09-19] MEDS ORDERED: PROCHLORPERAZINE 10 MG/2 ML VIAL. IV PRN (07:00)
[2016-09-19] MEDS ORDERED: IV RINGERS,LACTATED 1000ML 1,000 ML IV SCH (07:00)
[2016-09-19] MEDS ORDERED: LIDOCAINE 1% 1 ML SYRINGE. ID PRN (07:00)
[2016-09-19] MEDS ORDERED: ONDANSETRON PF 4 MG/2 ML VIAL. IV PRN (07:00)
[2016-09-19] MEDS ORDERED: fentaNYL PF VIAL 100 MCG/2 ML VIAL IV PRN ×2 (07:00)
[2016-09-19] MEDS ORDERED: PROPOFOL 40 ML IV ONE (07:53)
[2016-09-19] MEDS ORDERED: LIDOCAINE 2% PF Vial for OR 5 ML VIAL. ONE (07:53)
[2016-09-19] MEDS ORDERED: ePHEDrine PF IN SALINE 50 MG/5 ML DISP.SYRIN IV ONE (07:53)
[2016-09-19] MEDS ORDERED: IV NORMAL SALINE 1000ML BAG 1,000 ML IV SCH (08:45)
[2016-09-19] MEDS: amLODIPine BESYLATE 10 MG TABLET PO SCH (09:05)
[2016-09-19] MEDS: CALCIUM CARBONATE 500 MG TABLET PO SCH ×2 (09:05→15:17)
[2016-09-19 10:47] VITALS: BP 148/71
--- NOTE | 2016-09-19 11:03 | CARD ---
APPROVED REPORT EXAM: Transesophageal echocardiogram with color flow Doppler. INDICATION Infection:Rule out subacute bacterial endocarditis Reason For Test : Rule out endocarditis. PROCEDURE After obtaining informed consent, patient underwent transesophageal echo in the PACU. Type of Sedation : General Anesthesia Sedation was provided by anesthesiologist, see EMR for medications administered. Transesophageal probe was inserted and advanced into esophagus by Rodrigo Connell MD. The LOS was performed without complications. Throughout the procedure, the blood pressure, pulse oximetry, cardiac rhythm, and rate were monitored . The patient tolerated the procedure without adverse effects. Recovery from conscious sedation was une ventful and vital signs were stable. LEFT VENTRICLE The left ventricle is normal size. There is normal left ventricular wall thickness. The left ventricu lar systolic function is normal and the ejection fraction is within normal range. The Ejection Fracti on is 55-60%. There is normal LV segmental wall motion. No left ventricle thrombus noted on this stud y. There is no ventricular septal defect visualized. RIGHT VENTRICLE The right ventricle is normal size. The right ventricular systolic function is normal. ATRIA The left atrium size is normal. The right atrium size is normal. The interatrial septum is intact wit h no evidence for an atrial septal defect or patent foramen ovale as noted on 2-D or Doppler imaging. There is no thrombus noted in the left atrial appendage. AORTIC VALVE The aortic valve is normal in structure and function. The aortic valve is trileaflet. Doppler and Col or Flow revealed no significant aortic regurgitation. There is no aortic valvular vegetation. MITRAL VALVE The mitral valve is normal in structure. No vegetation seen on mitral valve. Doppler and Color Flow r evealed mild mitral regurgitation involving the A2/P2 segments. TRICUSPID VALVE The tricuspid valve is normal in structure and function. Doppler and Color Flow revealed no tricuspid valve regurgitation noted. There is no tricuspid valve vegetation seen. PULMONIC VALVE The pulmonary valve is normal in structure and function. Doppler and Color Flow revealed no pulmonic valvular regurgitation. GREAT VESSELS The aortic root is normal in size. The ascending aorta is normal in size. Normal pulmonary venous reno w (Doppler). The IVC was visualized and appears normal in size. The SVC was visualized and appears no rmal in size. PERICARDIAL EFFUSION There is no evidence of significant pericardial effusion. Critical Notification Critical Value: No <Conclusion> The left ventricular systolic function is normal and the ejection fraction is within normal range. Th e Ejection Fraction is 55-60%. There is normal LV segmental wall motion. There is no thrombus noted in the left atrial appendage. Doppler and Color Flow revealed mild mitral regurgitation involving the A2/P2 segments. No valvular vegetations noted.
--- NOTE | 2016-09-19 11:34 | PDOC ---
Infectious Disease Note Subjective Subjective feeling good. had LOS and doing well ROS ROS GEN: Denies fevers, chills, sweats HEENT: Denies blurred vision, sore throat CV: Denies chest pain RESP: Denies shortness of air, cough GI: Denies n/v/d NEURO: Denies confusion, dizziness MSK: Denies weakness, joint pain/swelling Vital Sign Vital Signs Vital Signs Date Time Temp Pulse Resp B/P (MAP) Pulse Ox O2 Delivery O2 Flow Rate FiO2 09/19/16 10:47 97.9 87 18 148/71 (96) 98 Room Air 97.9 09/19/16 08:30 2 Physical Exam PHYSICAL EXAM GENERAL: NAD, Alert, coop HEENT: PERRL, OC/OP -clear NECK: Supple, no JVD, no LN LUNGS: Clear HEART: S1S2, no gallop, no murmur ABD: Soft, NT, no organomegaly, no rebound EXT: No edema, no cyanosis WRAPPING MACHINE HELPER: Alert, oriented x 3, no focal neurologic deficit SKIN: No rash IV: ok. LUE AV fisutla clean. Right neck old HD site - better Labs Lab Laboratory Tests Test 09/19/16 04:00 Sodium Level 138 mmol/L (136-145) Potassium Level 3.5 mmol/L (3.5-5.1) Chloride Level 101 mmol/L (98-107) Carbon Dioxide Level 30 mmol/L (21-32) Anion Gap 7 (6-14) Blood Urea Nitrogen 38 mg/dL (8-26) Creatinine 7.7 mg/dL (0.7-1.3) Estimated GFR (Cockcroft-Gault) 7.3 Glucose Level 97 mg/dL (70-99) Calcium Level 7.5 mg/dL (8.5-10.1) Phosphorus Level 3.0 mg/dL (2.6-4.7) Magnesium Level 1.8 mg/dL (1.8-2.4) Albumin 2.7 g/dL (3.4-5.0) Objective Assessment Fever and chills BC + with staph,, MSSA 09/13 - repeat so far neg 09/16. LOS neg ESRD HTN Plan Plan of Care Cont cefazolin through 10/21 via HD. 2 gm IV q / and 3 gm Saturday Can f/u ID office 3 weeks MARY ANNE AQUINO MD Sep 19, 2016 11:34
--- NOTE | 2016-09-19 12:06 | PDOC ---
Renal-Progress Notes Subjective Notes Notes FEELS WELL History of Present Illness Hx of present illness STABLE Vitals Vitals Vital Signs Date Time Temp Pulse Resp B/P (MAP) Pulse Ox O2 Delivery O2 Flow Rate FiO2 09/19/16 10:47 97.9 87 18 148/71 (96) 98 Room Air 97.9 09/19/16 08:30 2 Weight Weight [ ] I.O. Intake and Output Intake and Output 09/19/16 07:00 Intake Total 1940 ml Output Total 1275 ml Balance 665 ml Intake Oral 1940 ml Output Urine Total 1275 ml Labs Labs Laboratory Tests Test 09/19/16 04:00 Sodium Level 138 mmol/L (136-145) Potassium Level 3.5 mmol/L (3.5-5.1) Chloride Level 101 mmol/L (98-107) Carbon Dioxide Level 30 mmol/L (21-32) Anion Gap 7 (6-14) Blood Urea Nitrogen 38 mg/dL (8-26) Creatinine 7.7 mg/dL (0.7-1.3) Estimated GFR (Cockcroft-Gault) 7.3 Glucose Level 97 mg/dL (70-99) Calcium Level 7.5 mg/dL (8.5-10.1) Phosphorus Level 3.0 mg/dL (2.6-4.7) Magnesium Level 1.8 mg/dL (1.8-2.4) Albumin 2.7 g/dL (3.4-5.0) Micro Micro Microbiology 09/17/16 Blood Culture - Preliminary, Resulted NO GROWTH AFTER 2 DAYS 09/13/16 Urine Culture - Final, Complete 09/13/16 Urine Culture Result 1 (JESSICA) - Final, Complete 09/13/16 Antimicrobic Susceptibility - Final, Complete 09/14/16 Gram Stain - Final, Complete Review of Systems Constitutional: yes: no symptom reported Physical Exam General Appearance: no apparent distress Skin: warm Respiratory: bilateral CTA Heart: S1S2 Abdomen: soft, bowel sounds present Genitourinary: bladder flat Extremities: pulses present Neurology: alert Assessment Assessment IMP BACTEREMIA ANEMIA ESRD PLAN ANTIBIOTICS HD TOMORROW D/C WHEN OK WITH ID WILL CONT TO USE LEFT ARM BRACHIO-BASILIC FISTULA BRIGHT SUBRAMANIAN MD Sep 19, 2016 12:06
[2016-09-19] MEDS ORDERED: CEFA2PIG3 IV ×2 (12:28→12:30)
[2016-09-19] MEDS ORDERED: CEFA1VIA2 IV ×2 (12:28→12:30)
--- NOTE | 2016-09-19 14:17 | PDOC3 ---
Discharge Summary Visit Information Date of Admission: Sep 13, 2016 Date of Discharge: Sep 19, 2016 Admitting Diagnosis: sepsis Final Diagnosis 1. Sepsis, with GPC bacteremia (Staph gabrielaaus) from infected HD cath (removed ) 2. ESRD on HD TTS 3. htn, controlled 4. bandemia 5. metabolic acidosis 6. lactate acidosis, POA, normal now on day 2 7. anemia of CKD Problems Medical Problems: (1) End stage renal disease Status: Acute (2) Fever Status: Acute (3) Tachycardia Status: Acute Brief Hospital Course Allergies Allergies Coded Allergies Type Severity Reaction Last Updated Verified No Known Drug Allergies 09/16/16 No Vital Signs Vital Signs Date Time Temp Pulse Resp B/P (MAP) Pulse Ox O2 Delivery O2 Flow Rate FiO2 09/19/16 10:47 97.9 87 18 148/71 (96) 98 Room Air 97.9 09/19/16 08:30 2 Lab Results Laboratory Tests Test 09/18/16 03:40 09/19/16 04:00 Sodium Level 140 mmol/L (136-145) 138 mmol/L (136-145) Potassium Level 3.8 mmol/L (3.5-5.1) 3.5 mmol/L (3.5-5.1) Chloride Level 101 mmol/L (98-107) 101 mmol/L (98-107) Carbon Dioxide Level 31 mmol/L (21-32) 30 mmol/L (21-32) Anion Gap 8 (6-14) 7 (6-14) Blood Urea Nitrogen 24 mg/dL (8-26) 38 mg/dL (8-26) Creatinine 5.5 mg/dL (0.7-1.3) 7.7 mg/dL (0.7-1.3) Estimated GFR (Cockcroft-Gault) 10.8 7.3 Glucose Level 103 mg/dL (70-99) 97 mg/dL (70-99) Calcium Level 8.2 mg/dL (8.5-10.1) 7.5 mg/dL (8.5-10.1) Phosphorus Level 2.4 mg/dL (2.6-4.7) 3.0 mg/dL (2.6-4.7) Magnesium Level 1.7 mg/dL (1.8-2.4) 1.8 mg/dL (1.8-2.4) Albumin 2.7 g/dL (3.4-5.0) 2.7 g/dL (3.4-5.0) Laboratory Tests Test 09/19/16 04:00 Sodium Level 138 mmol/L (136-145) Potassium Level 3.5 mmol/L (3.5-5.1) Chloride Level 101 mmol/L (98-107) Carbon Dioxide Level 30 mmol/L (21-32) Anion Gap 7 (6-14) Blood Urea Nitrogen 38 mg/dL (8-26) Creatinine 7.7 mg/dL (0.7-1.3) Estimated GFR (Cockcroft-Gault) 7.3 Glucose Level 97 mg/dL (70-99) Calcium Level 7.5 mg/dL (8.5-10.1) Phosphorus Level 3.0 mg/dL (2.6-4.7) Magnesium Level 1.8 mg/dL (1.8-2.4) Albumin 2.7 g/dL (3.4-5.0) Brief Hospital Course Mr. Macias is a 56 old male, on HD, had right tunneled line, and left arm AV fistula, admit with sepsis, cath tip staph aureus blood cx staph aureus Urine cx staph aureus LOS done showed no vegetation, pt felt well, plan 1 additional month IV abx, after HD 3x a week Cefazolin 2g T and R, and 3 grams monday until 10/21 Discharge Information Scheduled Amlodipine Besylate (Amlodipine Besylate), 10 MG PO DAILY, (Reported) Cefazolin Sodium (Cefazolin Sodium), 3 GM IV WEEKLY Cefazolin Sodium/D5w (Cefazolin 2 G/50 ml-D5w Bag), 2 GM IV TWICE WEEKLY Hydralazine Hcl (Hydralazine Hcl), 1 TAB PO TID, (Reported) Patient Instructions Patient Instructions time > 30 min LOKI WILKINSON MD Sep 19, 2016 14:17
[2016-09-19 15:17] VITALS: BP 148/71
== END 2016-09-19 16:24 | disposition home or self-care (01) | DRG 314 ==
LOC: ER 08:11 → 1 WEST ICU 09:39 → 5 NORTH 18:14
PROVIDERS: ADMIT Internal Medicine; ATTEND Internal Medicine
PROC: 05PY33Z Removal of Infusion Device from Upper Vein, Percutaneous Approach (ICD-10-PCS; principal; 2016-09-14)
PROC: 5A1D60Z (ICD-10-PCS; 2016-09-15)
DX: T82.7XXA Infection and inflammatory reaction due to other cardiac and vascular devices, implants and grafts, initial encounter (principal); A41.01 Sepsis due to Methicillin susceptible Staphylococcus aureus; N18.6 End stage renal disease; E87.2 Acidosis; I12.0 Hypertensive chronic kidney disease with stage 5 chronic kidney disease or end stage renal disease; D72.825 Bandemia; D63.1 Anemia in chronic kidney disease; Z99.2 Dependence on renal dialysis; Y83.8 Other surgical procedures as the cause of abnormal reaction of the patient, or of later complication, without mention of misadventure at the time of the procedure; Z82.49 Family history of ischemic heart disease and other diseases of the circulatory system
CPT/HCPCS: 36415; 36589; 71010; 76376; 80048; 80069; 80076; 80202; 81001; 83605; 83690; 83735; 83880; 84484; 85007; 85018; 85027; 85610; 87040; 87070; 87086; 87186; 87205; 87641; 93005; 93312; 93325; 96365; 96368; 96375; A6539; J0690; J0881; J2001; J2405; J2543; J2704; J3370; J3490; J7030; J7040; J7512; 99291-25